=== PATIENT | female | born 1940 | race American Indian/Alaskan Native ===

== ENCOUNTER 2020-06-06 13:42 | Emergency (ER) | payer SELFPAY ==
[2020-06-06 13:51] VITALS: BP 209/144
--- NOTE | 2020-06-06 14:17 | Consultation ---
History of Present Illness History of present illness: [facility] Date of Service: 06/06/2020 13:55:46 Impression: R47.01 - Aphasia Comments/Sign-Out: Patient with a history of stroke presenting with worsening of her baseline aphasia. Consider new left hemispheric infarct vs. decompensation of her known infarct from a systemic process. Patient out of the alteplase window. Daughter states patient would not want aggressive intervention such as thrombectomy, so emergent CTA deferred. Metrics: Last Known Well: 06/06/2020 01:00:00 [facility] Notification Time: 06/06/2020 13:55:24 Arrival Time: 06/06/2020 13:42:00 Stamp Time: 06/06/2020 13:55:46 Time First Login Attempt: 06/06/2020 13:59:00 Symptoms: slurred speech NIHSS Start Assessment Time: 06/06/2020 14:05:00 Patient is not a candidate for Alteplase/Activase. Patient was not deemed candidate for Alteplase/Activase thrombolytics because of Last Well Known Above 4.[address] head showed no acute hemorrhage or acute core infarct. ED Physician notified of diagnostic impression and management plan on 06/06/2020 14:12:00 Our recommendations are outlined below. Recommendations: Activate Stroke Protocol Admission/Order Set Stroke/Telemetry Floor Neuro Checks Bedside Swallow Eval DVT Prophylaxis IV Fluids, Normal Saline Head of Bed 30 Degrees Euglycemia and Avoid Hyperthermia (PRN Acetaminophen) Antiplatelet Therapy Recommended Routine Consultation with Inhouse Neurology for Follow up Care Sign Out: Discussed with Emergency Department Provider History of Present Illness: Patient is a 80 year old Female. Patient was brought by private transportation with symptoms of slurred speech Patient with a history of HTN and prior stroke (residual mild-moderate aphasia). Patient baseline is able to communicate her needs without much inference. This morning patient was not able to express herself as well as usual. No other deficit noted by family. Examination: BP(209/144), Pulse(88), Blood Glucose(110) 1A: Level of Consciousness - Alert; keenly responsive + 0 1B: Ask Month and Age - Aphasic + 2 1C: Blink Eyes & Squeeze Hands - Performs Both Tasks + 0 2: Test Horizontal Extraocular Movements - Normal + 0 3: Test Visual Carty - No Visual Loss + 0 4: Test Facial Palsy (Use Grimace if Obtunded) - Normal symmetry + 0 5A: Test Left Arm Motor Drift - No Drift for 10 Seconds + 0 5B: Test Right Arm Motor Drift - No Drift for 10 Seconds + 0 6A: Test Left Leg Motor Drift - No Drift for 5 Seconds + 0 6B: Test Right Leg Motor Drift - No Drift for 5 Seconds + 0 7: Test Limb Ataxia (FNF/Heel-Sahni) - No Ataxia + 0 8: Test Sensation - Normal; No sensory loss + 0 9: Test Language/Aphasia - Severe Aphasia: Fragmentary Expression, Inference Needed, Cannot Identify Materials + 2 10: Test Dysarthria - Normal + 0 11: Test Extinction/Inattention - No abnormality + 0 NIHSS Score: 4 Pre-Morbid Modified Ranking Scale: 2 Points = Slight disability; unable to carry out all previous activities, but able to look after own affairs without assistance Patient/Family was informed the Neurology Consult would happen via TeleHealth consult by way of interactive audio and video telecommunications and consented to receiving care in this manner. Due to the immediate potential for life-threatening deterioration due to underlying acute neurologic illness, I spent 25 minutes providing critical care. This time includes time for face to face visit via telemedicine, review of medical records, imaging studies and discussion of findings with providers, the patient and/or family. Dr Babak Trujillo [facility] Case [id number] Medications and Allergies Allergies Allergy/AdvReac Type Severity Reaction Status Date / Time No Known Allergies Allergy Unverified 06/06/20 13:51 Physical Examination - Vital Signs Vital Signs: Vital Signs Temp Pulse Resp BP Pulse Ox 97.9 F 88 20 209/144 98 06/06/20 13:44 06/06/20 13:44 06/06/20 13:44 06/06/20 13:44 06/06/20 13:44 Results - Laboratory Findings Abnormal Lab Findings: Abnormal Labs 06/06/20 13:49 POC Glucose 110 H
[2020-06-06 14:23] LABS: Basophils # (Auto) 0.1 K/mm3 (0.0-0.1); Basophils % (Auto) 1.1 % (0.0-1.8); Eosinophils # (Auto) 0.2 K/mm3 (0.0-0.4); Eosinophils % (Auto) 2.8 % (0.0-4.3); Hematocrit 39.9 % (30.3-42.9); Hemoglobin 12.8 gm/dl (10.1-14.3); Lymphocytes # (Auto) 2.5 K/mm3 (1.2-5.4); Lymphocytes % (Auto) 29.5 % (13.4-35.0); Mean Corpuscular HGB Conc 32 % (30-34); Mean Corpuscular Volume 81 fl (79-97); Monocytes # (Auto) 0.4 K/mm3 (0.0-0.8); Monocytes % (Auto) 5.3 % (0.0-7.3); Platelet Count 236 K/mm3 (140-440); Red Cell Distribution Width 17.1 % (13.2-15.2)
[2020-06-06 14:38] LABS: Creatine Kinase MB 1.2 ng/mL (0.0-4.0); INR 0.98 (0.87-1.13)
[2020-06-06 14:39] LABS: Partial Thromboplastin Time 30.6 Sec. (24.2-36.6); Thrombin Time 16.3 Sec. (15.1-19.6)
[2020-06-06 14:40] LABS: BUN/Creatinine Ratio 13; Blood Urea Nitrogen 17 mg/dL (7-17); Calcium 9.2 mg/dL (8.4-10.2); Hemolysis Index 2
[2020-06-06 14:42] LABS: Alanine Aminotransferase < 5 units/L (7-56)
[2020-06-06] MEDS ORDERED: POTASSIUM CHLORIDE ER 20 MEQ TAB PO ONE (14:53)
--- NOTE | 2020-06-06 14:56 | Cat Scan Report ---
CT head/brain wo con INDICATION / CLINICAL INFORMATION: 80 years Female; MAIN. Worsening aphasia TECHNIQUE: Routine CT head without contrast. All CT scans at this location are performed using CT dos e reduction for ALARA by means of automated exposure control. COMPARISON: None. FINDINGS: BRAIN / INTRACRANIAL CONTENTS: Large, mixed cystic and solid lesion seen in the sella turcica, which is expanded. This lesion measures approximately 2.4 cm craniocaudally by 1.9 cm transversely by 1.8 c m AP. Solid component of the lesion lies along its anterior, inferior and left lateral margins. This finding causes mass effect on the optic chiasm. Cystic macroadenoma or perhaps a Rathke's cleft cyst (or arachnoid cyst), with displaced pituitary parenchyma, might be considered. While this is a nonagg ressive appearing lesion, the possibility of craniopharyngioma cannot entirely be excluded. Old, branch PICA infarct seen laterally in the right cerebellar hemisphere. Old, small branch JEAN inf arct suggested in the cingulate gyrus region anteriorly on the right. Otherwise, no acute hemorrhage, mass effect, midline shift, hydrocephalus, or acute, large territori al infarct. Mild cerebral and cerebellar atrophy noted. There are mild areas of decreased attenuation in the white matter of the cerebral hemispheres, as wel l as the gangliocapsular regions. These are nonspecific findings and may be related to microangiopath y (hypertension, diabetes, atherosclerosis), given the patient's age. CRANIOCERVICAL JUNCTION: No significant abnormality. ORBITS: No significant abnormality of visualized orbits. SINUSES / MASTOIDS: No significant abnormality in the visualized paranasal sinuses or mastoid air tim ls. ADDITIONAL FINDINGS: Atherosclerotic disease is seen in the anterior circulation. IMPRESSION: 1. Lesion in the sella turcica as described above, with a nonaggressive type appearance. Pre and post contrast MRI of the brain, special attention to the sella turcica, may be of benefit-this can be perf ormed on an outpatient basis. 2. Otherwise, no focal intra-axial mass, hemorrhage, hydrocephalus, or acute, large territorial infar ct. CODE STROKE: Exam Completed (FRAME MAKER/CDT): 06/06/2020 1:33 PM Exam Reviewed (FRAME MAKER/CDT): 1:40 PM Time of Communication (FRAME MAKER/CDT): 1:50 PM Licensed Practitioner Receiving Report: Dr. Zavala Signer Name: Haseeb Oro MD, III Signed: 06/06/2020 2:51 PM Workstation Name: [id number]
--- NOTE | 2020-06-06 15:08 | Emergency Department Report ---
ED Neuro Deficit HPI - General Chief Complaint: Neuro Symptoms/Deficit Stated Complaint: POSS CVA Time Seen by Provider: 06/06/20 14:22 Source: patient, family Mode of arrival: Ambulatory Limitations: No Limitations - History of Present Illness Initial Comments: Patient is an 80-year-old female with history of previous stroke with issues with speech as no deficit who presents to the emergency department with complaint of difficulty in speech. Patient's daughter is present and provides most of the history. She states that the patient was last known normal at approximately 1 AM prior to going to sleep. This morning around 1030 she noticed that the patient was having trouble telling her what she wanted. She states that she is usually able to complain of knee pain if she is having it or complaint of other symptoms. She was unable to do that on today. She denies any recent illness. The patient has not complained of any motor weakness. Stacey mccoy has a history of hypertension but does not currently take any medications for it. She is only on aspirin. - Related Data Home Medications: Home Medications Medication Instructions Recorded Confirmed Last Taken Aspirin 81 mg PO DAILY 06/06/20 06/06/20 Unknown Previous Rx's Medication Instructions Recorded Last Taken Type Amoxicillin/Potassium Clav 1 each PO Q12HR 10 Days #20 tablet 06/06/20 Unknown Rx [Augmentin 875-125 Tablet] Allergies/Adverse Reactions: Allergies Allergy/AdvReac Type Severity Reaction Status Date / Time No Known Allergies Allergy Unverified 06/06/20 13:51 ED Review of Systems ROS: Stated complaint: POSS CVA Other details as noted in HPI Constitutional: denies: chills, fever Respiratory: no symptoms reported Cardiovascular: denies: chest pain Endocrine: no symptoms reported Gastrointestinal: denies: abdominal pain, nausea, vomiting Genitourinary: denies: dysuria Musculoskeletal: denies: back pain Skin: denies: rash Neurological: denies: headache, weakness Psychiatric: denies: anxiety, depression Hematological/Lymphatic: denies: easy bleeding ED Past Medical Hx - Past Medical History Previous Medical History?: Yes Hx CVA: Yes - Surgical History Past Surgical History?: No - Social History Smoking Status: Never Smoker Substance Use Type: None - Medications Home Medications: Home Medications Medication Instructions Recorded Confirmed Last Taken Type Amoxicillin/Potassium Clav 1 each PO Q12HR 10 Days #20 tablet 06/06/20 Unknown Rx [Augmentin 875-125 Tablet] Aspirin 81 mg PO DAILY 06/06/20 06/06/20 Unknown History ED Neuro Physical Exam - General Limitations: No Limitations General appearance: alert Suspected Stroke: Yes - Head Head exam: Present: atraumatic, normocephalic - Eye Eye exam: Present: normal appearance Pupils: Present: normal accommodation - ENT ENT exam: Present: normal exam - Neck Neck exam: Present: normal inspection - Respiratory Respiratory exam: Present: normal lung sounds bilaterally. Absent: respiratory distress - Cardiovascular Cardiovascular Exam: Present: regular rate, normal rhythm, normal heart sounds - GI/Abdominal GI/Abdominal exam: Present: soft. Absent: distended, tenderness - Rectal Rectal exam: Present: deferred - Extremities Exam Extremities exam: Present: normal inspection - Back Exam Back exam: Present: normal inspection - Neurological Exam Neurological exam: Present: alert, other (Disoriented) - NIHSS Assessment Interval: Baseline 1a. Level of Consciousness: alert/keenly responsive 1b. LOC Questions: answers no questions correctly 1c. LOC Commands: performs tasks correctly 2. Best Gaze: normal 3. Visual: partial hemianopia 4. Facial Palsy: normal symmetrical movement 5b. Motor Arm Right: no drift 5a. Motor Arm Left: no drift 6a. Motor Leg Left: no drift 6b. Motor Leg Right: no drift 7. Limb Ataxia: absent 8. Sensory: normal 9. Best Language: mild/moderate aphasia 10. Dysarthria: mild/moderate dysarthria 11. Extinction/Inattention: no abnormality Total Score: 5 Stroke Severity: Moderate Stroke - Psychiatric Psychiatric exam: Present: normal affect - Skin Skin exam: Present: warm, dry, intact ED Course Vital Signs 06/06/20 13:44 Temperature 97.9 F Pulse Rate 88 Respiratory 20 Rate Blood Pressure 209/144 [Right] O2 Sat by Pulse 98 Oximetry - Reevaluation(s) Reevaluation #1: 06/06/20 15:36 Unfortunately patient's daughter cannot stay with her as these are the hospital rooms during the COVID-19 pandemic. The patient and her daughter no longer want to stay in the hospital. I discussed the risks of leaving AGAINST MEDICAL ADVICE including worsening of her neurological symptoms and . Patient and her daughter state that they understand these but they would rather leave. The patient has signed out AGAINST MEDICAL ADVICE. - Consultations Consultation #1: 06/06/20 Tele neuro recommended inpatient work-up for stroke - Lab Data Result diagrams: 06/06/20 14:03 06/06/20 14:03 Lab Results 06/06/20 06/06/20 06/06/20 Range/Units 13:49 14:03 14:03 WBC 8.5 (4.5-11.0) K/mm3 RBC 4.90 (3.65-5.03) M/mm3 Hgb 12.8 (10.1-14.3) gm/dl Hct 39.9 (30.3-42.9) % MCV 81 (79-97) fl MCH 26 L (28-32) pg MCHC 32 (30-34) % RDW 17.1 H (13.2-15.2) % Plt Count 236 (140-440) K/mm3 Lymph % (Auto) 29.5 (13.4-35.0) % Bates % (Auto) 5.3 (0.0-7.3) % Eos % (Auto) 2.8 (0.0-4.3) % Baso % (Auto) 1.1 (0.0-1.8) % Lymph # (Auto) 2.5 (1.2-5.4) K/mm3 Bates # (Auto) 0.4 (0.0-0.8) K/mm3 Eos # (Auto) 0.2 (0.0-0.4) K/mm3 Baso # (Auto) 0.1 (0.0-0.1) K/mm3 Seg Neutrophils % 61.3 (40.0-70.0) % Seg Neutrophils # 5.2 (1.8-7.7) K/mm3 PT 12.8 (12.2-14.9) Sec. INR 0.98 (0.87-1.13) APTT 30.6 (24.2-36.6) Sec. Thrombin Time 16.3 (15.1-19.6) Sec. Sodium (137-145) mmol/L Potassium (3.6-5.0) mmol/L Chloride (98-107) mmol/L Carbon Dioxide (22-30) mmol/L Anion Gap mmol/L BUN (7-17) mg/dL Creatinine (0.6-1.2) mg/dL Estimated GFR ml/min BUN/Creatinine Ratio % Glucose (65-100) mg/dL POC Glucose 110 H (70-105) mg/dL Calcium (8.4-10.2) mg/dL Magnesium (1.7-2.3) mg/dL Total Bilirubin (0.1-1.2) mg/dL AST (5-40) units/L ALT (7-56) units/L Alkaline Phosphatase (35-129) units/L Total Creatine Kinase (30-135) units/L CK-MB (CK-2) (0.0-4.0) ng/mL CK-MB (CK-2) Rel Index (0-4) Troponin T (0.00-0.029) ng/mL Total Protein (6.3-8.2) g/dL Albumin (3.9-5) g/dL Albumin/Globulin Ratio % 06/06/20 06/06/20 Range/Units 14:03 14:53 WBC (4.5-11.0) K/mm3 RBC (3.65-5.03) M/mm3 Hgb (10.1-14.3) gm/dl Hct (30.3-42.9) % MCV (79-97) fl MCH (28-32) pg MCHC (30-34) % RDW (13.2-15.2) % Plt Count (140-440) K/mm3 Lymph % (Auto) (13.4-35.0) % Bates % (Auto) (0.0-7.3) % Eos % (Auto) (0.0-4.3) % Baso % (Auto) (0.0-1.8) % Lymph # (Auto) (1.2-5.4) K/mm3 Bates # (Auto) (0.0-0.8) K/mm3 Eos # (Auto) (0.0-0.4) K/mm3 Baso # (Auto) (0.0-0.1) K/mm3 Seg Neutrophils % (40.0-70.0) % Seg Neutrophils # (1.8-7.7) K/mm3 PT (12.2-14.9) Sec. INR (0.87-1.13) APTT (24.2-36.6) Sec. Thrombin Time (15.1-19.6) Sec. Sodium 141 (137-145) mmol/L Potassium 3.0 L (3.6-5.0) mmol/L Chloride 102.5 (98-107) mmol/L Carbon Dioxide 30 (22-30) mmol/L Anion Gap 12 mmol/L BUN 17 (7-17) mg/dL Creatinine 1.3 H (0.6-1.2) mg/dL Estimated GFR 48 ml/min BUN/Creatinine Ratio 13 % Glucose 123 H (65-100) mg/dL POC Glucose (70-105) mg/dL Calcium 9.2 (8.4-10.2) mg/dL Magnesium 2.10 (1.7-2.3) mg/dL Total Bilirubin 0.40 (0.1-1.2) mg/dL AST 15 (5-40) units/L ALT < 5 L (7-56) units/L Alkaline Phosphatase 55 (35-129) units/L Total Creatine Kinase 72 (30-135) units/L CK-MB (CK-2) 1.2 (0.0-4.0) ng/mL CK-MB (CK-2) Rel Index 1.6 (0-4) Troponin T < 0.010 (0.00-0.029) ng/mL Total Protein 7.6 (6.3-8.2) g/dL Albumin 4.0 (3.9-5) g/dL Albumin/Globulin Ratio 1.1 % - Medical Decision Making Patient is an 80-year-old female with history of previous stroke as well as hypertension who presents to the emergency department with complaint of difficulty in speech. She is accompanied by her daughter who provides most of the history. Of concern is acute CVA. Code stroke was called and patient will go emergently for CT head without contrast as well as a telemetry neurology consult. Critical care attestation.: If time is entered above; I have spent that time in minutes in the direct care of this critically ill patient, excluding procedure time. ED Disposition Clinical Impression: Dysarthria, Word finding problem Disposition: [id number] LEFT AGAINST MED ADVICE Is pt being admited?: No Does the pt Need Aspirin: Yes Condition: Stable Prescriptions: Amoxicillin/Potassium Clav [Augmentin 875-125 Tablet] 1 each PO Q12HR 10 Days #20 tablet Referrals: PRIMARY CARE, [Primary Care Provider] - 3-5 Days Forms: AMA Form
[2020-06-06] MEDS ORDERED: ASPIRIN 81 MG TAB CHEW PO ONE (15:10)
== END 2020-06-06 16:06 | disposition left against medical advice (07) ==
LOC: ED 13:42
DX: R47.1 Dysarthria and anarthria (principal); R41.841 Cognitive communication deficit; Z79.2 Long term (current) use of antibiotics; Z79.899 Other long term (current) drug therapy
CPT/HCPCS: 36415; 70450; 80053; 82550; 82553; 82962; 83735; 84484; 85025; 85610; 85670; 85730; 93005

== ENCOUNTER 2020-06-13 09:56 | Inpatient (IN) | payer MEDICARE ==
--- NOTE | 2020-06-13 10:39 | Emergency Department Report ---
ED Neuro Deficit HPI - General Chief Complaint: Altered Mental Status Stated Complaint: WEAKNESS Time Seen by Provider: 06/13/20 10:36 Source: patient, EMS Mode of arrival: Stretcher Limitations: Other (aphasia) - History of Present Illness Initial Comments: CC: not walking, not speaking HPI: History obtained from the daughter. THis is an 80 yo female with hx of HTN, CVA who presents wtih difficulty speaking and inability to walk. On Tuesday she could not make it to bathroom. On yesterday, the difficulty with walking became worse. This morning, she would not move at all. She just fell to the ground when attempted to get up out of bed. Patient had a stroke in 2017. Her only deficit was mild aphasia. According to the daughter, she would mix up words. No hx of paralysis or gait imbalance. Patient only takes ASA. She does not take blood pressure medication. No hx of DM or heart disease. She lives with daughter. She is a retired warehouse attendant. -: days(s) (3 days ago) Location: speech Presenting Symptoms: Present: Weak/Paralyzed One Side History of same: No Place: home Severity: severe Quality: constant Improves With: none Worsens With: none Context: other (unknown) Treatments Prior to Arrival: other (ENS transport) - Related Data Home Medications: Home Medications Medication Instructions Recorded Confirmed Last Taken Aspirin 81 mg PO DAILY 06/06/20 06/06/20 Unknown Previous Rx's Medication Instructions Recorded Last Taken Type Amoxicillin/Potassium Clav 1 each PO Q12HR 10 Days #20 tablet 06/06/20 Unknown Rx [Augmentin 875-125 Tablet] Allergies/Adverse Reactions: Allergies Allergy/AdvReac Type Severity Reaction Status Date / Time No Known Allergies Allergy Unverified 06/06/20 13:51 ED Review of Systems ROS: Stated complaint: WEAKNESS Other details as noted in HPI Comment: Unobtainable due to pts medical conditions ED Past Medical Hx - Past Medical History Previous Medical History?: Yes (Unobtainable due to patient's aphasia) Hx Hypertension: Yes Hx CVA: Yes - Surgical History Past Surgical History?: No - Family History Family history: hypertension - Social History Smoking Status: Never Smoker Substance Use Type: None - Medications Home Medications: Home Medications Medication Instructions Recorded Confirmed Last Taken Type Amoxicillin/Potassium Clav 1 each PO Q12HR 10 Days #20 tablet 06/06/20 Unknown Rx [Augmentin 875-125 Tablet] Aspirin 81 mg PO DAILY 06/06/20 06/06/20 Unknown History ED Neuro Physical Exam - General Limitations: Other General appearance: alert, other (Patient just moans when attempting to answer question will make eye contact facial droop evident) Suspected Stroke: Yes - Head Head exam: Present: atraumatic, normocephalic - Eye Eye exam: Present: normal appearance - ENT ENT exam: Present: mucous membranes moist - Neck Neck exam: Present: normal inspection, full ROM - Respiratory Respiratory exam: Present: normal lung sounds bilaterally. Absent: respiratory distress, wheezes, rales, rhonchi - Cardiovascular Cardiovascular Exam: Present: regular rate, normal rhythm, normal heart sounds. Absent: systolic murmur, diastolic murmur - GI/Abdominal GI/Abdominal exam: Present: soft. Absent: distended, tenderness, guarding, rebound - Extremities Exam Extremities exam: Present: normal inspection - Neurological Exam Neurological exam: Present: alert - NIHSS Assessment Interval: Baseline 1a. Level of Consciousness: arousable/minor stimuli 1b. LOC Questions: aphasic 1c. LOC Commands: performs tasks correctly 2. Best Gaze: normal 3. Visual: no visual loss 4. Facial Palsy: partial paralysis 5b. Motor Arm Right: no gravity effort 5a. Motor Arm Left: no drift 6a. Motor Leg Left: no drift 6b. Motor Leg Right: no gravity effort 7. Limb Ataxia: absent 8. Sensory: normal 9. Best Language: severe aphasia 10. Dysarthria: severe dysarthria 11. Extinction/Inattention: profound inattention Total Score: 17 Stroke Severity: Moderate to Severe Stroke ED Course Vital Signs 06/13/20 06/13/20 06/13/20 10:23 10:49 11:12 Pulse Rate 72 61 Respiratory 16 14 Rate Blood Pressure 217/105 222/135 Blood Pressure 153/100 [Left] O2 Sat by Pulse 99 98 Oximetry 06/13/20 06/13/20 11:45 12:40 Pulse Rate 63 63 Respiratory 14 14 Rate Blood Pressure Blood Pressure 162/86 152/92 [Left] O2 Sat by Pulse 99 98 Oximetry - Lab Data Result diagrams: 06/13/20 11:38 06/13/20 11:38 Lab Results 06/13/20 06/13/20 06/13/20 Range/Units 11:38 11:38 11:38 WBC 8.6 (4.5-11.0) K/mm3 RBC 4.71 (3.65-5.03) M/mm3 Hgb 12.5 (10.1-14.3) gm/dl Hct 38.5 (30.3-42.9) % MCV 82 (79-97) fl MCH 27 L (28-32) pg MCHC 32 (30-34) % RDW 17.3 H (13.2-15.2) % Plt Count 206 (140-440) K/mm3 Lymph % (Auto) 19.2 (13.4-35.0) % Mariposa % (Auto) 5.3 (0.0-7.3) % Eos % (Auto) 1.3 (0.0-4.3) % Baso % (Auto) 0.8 (0.0-1.8) % Lymph # (Auto) 1.6 (1.2-5.4) K/mm3 Mar[place]osa # (Auto) 0.5 (0.0-0.8) K/mm3 Eos # (Auto) 0.1 (0.0-0.4) K/mm3 Baso # (Auto) 0.1 (0.0-0.1) K/mm3 Seg Neutrophils % 73.4 H (40.0-70.0) % Seg Neutrophils # 6.3 (1.8-7.7) K/mm3 PT 13.1 (12.2-14.9) Sec. INR 1.00 (0.87-1.13) APTT 26.1 (24.2-36.6) Sec. Sodium (137-145) mmol/L Potassium (3.6-5.0) mmol/L Chloride (98-107) mmol/L Carbon Dioxide (22-30) mmol/L Anion Gap mmol/L BUN (7-17) mg/dL Creatinine (0.6-1.2) mg/dL Estimated GFR ml/min BUN/Creatinine Ratio % Glucose (65-100) mg/dL Calcium (8.4-10.2) mg/dL Total Bilirubin (0.1-1.2) mg/dL AST (5-40) units/L ALT (7-56) units/L Alkaline Phosphatase (35-129) units/L Troponin T < 0.010 (0.00-0.029) ng/mL Total Protein (6.3-8.2) g/dL Albumin (3.9-5) g/dL Albumin/Globulin Ratio % Urine Color (Yellow) Urine Turbidity (Clear) Urine pH (5.0-7.0) Ur Specific Mangum (1.003-1.030) Urine Protein (Negative) mg/dL Urine Glucose (UA) (Negative) mg/dL Urine Ketones (Negative) mg/dL Urine Blood (Negative) Urine Nitrite (Negative) Urine Bilirubin (Negative) Urine Urobilinogen (<2.0) mg/dL Ur Leukocyte Esterase (Negative) Urine WBC (Auto) (0.0-6.0) /HPF Urine RBC (Auto) (0.0-6.0) /HPF U Epithel Cells (Auto) (0-13.0) /HPF Urine Mucus /HPF 06/13/20 06/13/20 Range/Units 11:38 12:02 WBC (4.5-11.0) K/mm3 RBC (3.65-5.03) M/mm3 Hgb (10.1-14.3) gm/dl Hct (30.3-42.9) % MCV (79-97) fl MCH (28-32) pg MCHC (30-34) % RDW (13.2-15.2) % Plt Count (140-440) K/mm3 Lymph % (Auto) (13.4-35.0) % Mariposa % (Auto) (0.0-7.3) % Eos % (Auto) (0.0-4.3) % Baso % (Auto) (0.0-1.8) % Lymph # (Auto) (1.2-5.4) K/mm3 [place]osa # (Auto) (0.0-0.8) K/mm3 Eos # (Auto) (0.0-0.4) K/mm3 Baso # (Auto) (0.0-0.1) K/mm3 Seg Neutrophils % (40.0-70.0) % Seg Neutrophils # (1.8-7.7) K/mm3 PT (12.2-14.9) Sec. INR (0.87-1.13) APTT (24.2-36.6) Sec. Sodium 144 (137-145) mmol/L Potassium 3.1 L (3.6-5.0) mmol/L Chloride 106.9 (98-107) mmol/L Carbon Dioxide 28 (22-30) mmol/L Anion Gap 12 mmol/L BUN 20 H (7-17) mg/dL Creatinine 1.3 H (0.6-1.2) mg/dL Estimated GFR 48 ml/min BUN/Creatinine Ratio 15 % Glucose 93 (65-100) mg/dL Calcium 9.0 (8.4-10.2) mg/dL Total Bilirubin 0.40 (0.1-1.2) mg/dL AST 13 (5-40) units/L ALT < 5 L (7-56) units/L Alkaline Phosphatase 53 (35-129) units/L Troponin T (0.00-0.029) ng/mL Total Protein 6.9 (6.3-8.2) g/dL Albumin 3.7 L (3.9-5) g/dL Albumin/Globulin Ratio 1.2 % Urine Color Yellow (Yellow) Urine Turbidity Clear (Clear) Urine pH 6.0 (5.0-7.0) Ur Specific Mangum 1.018 (1.003-1.030) Urine Protein 30 mg/dl (Negative) mg/dL Urine Glucose (UA) Neg (Negative) mg/dL Urine Ketones Neg (Negative) mg/dL Urine Blood Neg (Negative) Urine Nitrite Neg (Negative) Urine Bilirubin Neg (Negative) Urine Urobilinogen < 2.0 (<2.0) mg/dL Ur Leukocyte Esterase Neg (Negative) Urine WBC (Auto) 2.0 (0.0-6.0) /HPF Urine RBC (Auto) 1.0 (0.0-6.0) /HPF U Epithel Cells (Auto) 4.0 (0-13.0) /HPF Urine Mucus Few /HPF - EKG Data -: EKG Interpreted by Id EKG shows normal: sinus rhythm, axis, intervals Rate: normal 06/13/20 11:22 EKG obtained 1118 EKG interpreted by la Normal sinus rhythm rate 60 bpm normal axis normal intervals positive LVH inferior Q waves anterior Q waves nonspecific T wave abnormality no ST elevation 06/13/20 11:22 - Radiology Data Radiology results: report reviewed, image reviewed CT BRAIN: 06/13/2020 INDICATION / CLINICAL INFORMATION: Stroke symptoms. No additional information provided COMPARISON: 06/06/2020 FINDINGS: BRAIN/INTRACRANIAL STRUCTURES: Unenhanced CT images of the brain were obtained and compared to the prior exam from 7 days earlier. There has been no change. Again seen is pronounced diffuse cerebral atrophy, chronic white matter hypoattenuation, and evidence of old left periventricular lacunar change. Old right cerebellar lacunar changes also noted. There is no CT evidence of acute ischemic injury, hemorrhage, or parenchymal mass. Again seen is a 2.4 cm mixed cystic and solid lesion in the sella turcica, with a differential diagnosis which includes cystic macroadenoma, Rathke's cleft cyst, craniopharyngioma. Further evaluation with MRI could be considered for additional evaluation, depending on details of the clinical circumstances. EXTRACRANIAL STRUCTURES: Unremarkable. IMPRESSION: 1. Stable chronic and age-related changes. No evidence of acute abnormality. 2. Stable lesion of the sella turcica as described above. - Medical Decision Making 1. Acute CVA: Teleneurologist recommended full aspirin, MRI/MRA. No evidence of intracranial hemorrhage. Patient is admitted to the hospital service in fair condition. Patient is outside window for thrombolytics or endovascular intervention according to teleneurologist. 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 Outpatient work-up is most appropriate Patient is admitted to the hospital service. I updated daughter with head CT results and treatment plan. Upon lab review CBC chemistry urinalysis remarkable for hypokalemia absence of UTI Critical Care Time: Yes Critical care attestation.: If time is entered above; I have spent that time in minutes in the direct care of this critically ill patient, excluding procedure time. 40 minutes of critical care time excluding procedures were used in the care of the patient. I came immediately to the bedside upon patient's arrival. I obtained history from daughter. I asked charge nurse to activate code stroke protocol I discussed treatment plan with the nursing team members. I reviewed electronic record. I kept the family members informed. Patient required multiple interventions and reassessments. ED Disposition Clinical Impression: Acute CVA (cerebrovascular accident), Pituitary mass Disposition: OP ADMIT IP TO THIS HOSP Is pt being admited?: Yes Does the pt Need Aspirin: No Condition: Stable
--- NOTE | 2020-06-13 11:07 | XRay Report ---
CHEST 1 VIEW INDICATION: speech difficulty general illness. COMPARISON: None FINDINGS: Support devices: None. Heart: Within normal limits. Lungs/Pleura: No acute air space or interstitial disease. Additional findings: None. IMPRESSION: No acute findings. Signer Name: Dionte Sahni Jr, MD Signed: 06/13/2020 11:03 AM Workstation Name: [id number]
--- NOTE | 2020-06-13 11:13 | Consultation ---
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 Outside any therapeutic window for thrombolytics or endovascular intervention. Sellar mass not responsible for presentation but should be evaluated with contrasted MRI Metrics: Last Known Well: Unknown [facility] Notification Time: 06/13/2020 10:48:28 Arrival Time: 06/13/2020 09:56:00 Stamp Time: 06/13/2020 10:48:58 Time First Login Attempt: 06/13/2020 10:52:11 Symptoms: right sided weakness, NIHSS Start Assessment Time: 06/13/2020 11:03:57 Patient is not a candidate for Alteplase/Activase. Patient was not deemed candidate for Alteplase/Activase thrombolytics because of Last Well Known Above 4.[address] head showed no acute hemorrhage; pituitary mass Clinical Presentation is Suggestive of Large Vessel Occlusive Disease, But Outside Treatment Window ED Physician notified of diagnostic impression and management plan on 06/13/2020 11:09:48 Our recommendations are outlined below. Recommendations: Activate Stroke Protocol Admission/Order Set Stroke/Telemetry Floor Neuro Checks Bedside Swallow Eval DVT Prophylaxis IV Fluids, Normal Saline Head of Bed 30 Degrees Euglycemia and Avoid Hyperthermia (PRN Acetaminophen) Antiplatelet Therapy Recommended Full dose aspirin x 1 now No emergent need for vessel imaging as not a candidate given history MRI brain, MRA head and neck for stroke workup. For pitutiary mass eval would need a dedicated MRI brain pituitary protocol w contrast Routine Consultation with Inhouse Neurology for Follow up Care Sign Out: Discussed with Emergency Department Provider History of Present Illness: Patient is a 80 year old Female. Patient was brought by EMS for symptoms of right sided weakness, 80 yo F who was brought in by daughter with slight speech deficits earlier this month. She had difficulties expressing herself. The patient was supposed to be admitted then but the daughter did not want her to be in the hospital due to COVID restrictions so was taken home AMA. Today she is hypertensive with report of right sided weakness in addition to the aphasia. Per daughter the patient has had trouble with walking for 2 days as well Last seen normal was beyond 4.5 hours of presentation. Antiplatelet use: asa 80 Examination: BP(220/105), Pulse(72), Blood Glucose(.) 1A: Level of Consciousness - Alert; keenly responsive + 0 1B: Ask Month and Age - Aphasic + 2 1C: Blink Eyes & Squeeze Hands - Performs 1 Task + 1 2: Test Horizontal Extraocular Movements - Forced Gaze Palsy: Cannot Be Overcome + 2 3: Test Visual Carty - Complete Hemianopia + 2 4: Test Facial Palsy (Use Grimace if Obtunded) - Partial paralysis (lower face) + 2 5A: Test Left Arm Motor Drift - No Drift for 10 Seconds + 0 5B: Test Right Arm Motor Drift - No Movement + 4 6A: Test Left Leg Motor Drift - No Drift for 5 Seconds + 0 6B: Test Right Leg Motor Drift - No Movement + 4 7: Test Limb Ataxia (FNF/Heel-Sahni) - No Ataxia + 0 8: Test Sensation - Normal; No sensory loss + 0 9: Test Language/Aphasia - Severe Aphasia: Fragmentary Expression, Inference Needed, Cannot Identify Materials + 2 10: Test Dysarthria - Severe Dysarthria: Unintelligble Slurring or Out of Proportion to Aphasia + 2 11: Test Extinction/Inattention - No abnormality + 0 NIHSS Score: 21 Patient/Family was informed the Neurology Consult would happen via TeleHealth consult by way of interactive audio and video telecommunications and consented to receiving care in this manner. Due to the immediate potential for life-threatening deterioration due to underlying acute neurologic illness, I spent 35 minutes providing critical care. This time includes time for face to face visit via telemedicine, review of medical records, imaging studies and discussion of findings with providers, the patient and/or family. Dr Carlton [place] [facility] Case [id number] Medications and Allergies Allergies Allergy/AdvReac Type Severity Reaction Status Date / Time No Known Allergies Allergy Unverified 06/06/20 13:51 Home Medications Medication Instructions Recorded Confirmed Last Taken Type Amoxicillin/Potassium Clav 1 each PO Q12HR 10 Days #20 tablet 06/06/20 Unknown Rx [Augmentin 875-125 Tablet] Aspirin 81 mg PO DAILY 06/06/20 06/06/20 Unknown History Physical Examination - Vital Signs Vital Signs: Vital Signs Pulse Resp BP Pulse Ox 72 16 217/105 99 06/13/20 10:23 06/13/20 10:23 06/13/20 10:23 06/13/20 10:23
--- NOTE | 2020-06-13 11:24 | Cat Scan Report ---
CT BRAIN: 06/13/2020 INDICATION / CLINICAL INFORMATION: Stroke symptoms. No additional information provided COMPARISON: 06/06/2020 FINDINGS: BRAIN/INTRACRANIAL STRUCTURES: Unenhanced CT images of the brain were obtained and compared to the pr ior exam from 7 days earlier. There has been no change. Again seen is pronounced diffuse cerebral atrophy, chronic white matter hypoattenuation, and evidence of old left periventricular lacunar change. Old right cerebellar lacunar changes also noted. There is no CT evidence of acute ischemic injury, hemorrhage, or parenchymal mass. Again seen is a 2.4 cm mixed cystic and solid lesion in the sella turcica, with a differential diagno sis which includes cystic macroadenoma, Rathke's cleft cyst, craniopharyngioma. Further evaluation wi th MRI could be considered for additional evaluation, depending on details of the clinical circumstan chandni. EXTRACRANIAL STRUCTURES: Unremarkable. IMPRESSION: 1. Stable chronic and age-related changes. No evidence of acute abnormality. 2. Stable lesion of the sella turcica as described above. Notification: in the emergency department at [address] scans at this location are performed using dose reduction to ALARA by means of automated expos ure control. Signer Name: Alexy Mondragon MD Signed: 06/13/2020 11:20 AM Workstation Name: [id number]
[2020-06-13 11:54] LABS: Basophils # (Auto) 0.1 K/mm3 (0.0-0.1); Basophils % (Auto) 0.8 % (0.0-1.8); Eosinophils # (Auto) 0.1 K/mm3 (0.0-0.4); Eosinophils % (Auto) 1.3 % (0.0-4.3); Hematocrit 38.5 % (30.3-42.9); Hemoglobin 12.5 gm/dl (10.1-14.3); Lymphocytes # (Auto) 1.6 K/mm3 (1.2-5.4); Lymphocytes % (Auto) 19.2 % (13.4-35.0); Mean Corpuscular HGB Conc 32 % (30-34); Mean Corpuscular Volume 82 fl (79-97); Monocytes # (Auto) 0.5 K/mm3 (0.0-0.8); Monocytes % (Auto) 5.3 % (0.0-7.3); Platelet Count 206 K/mm3 (140-440); Red Blood Count 4.71 M/mm3 (3.65-5.03); Red Cell Distribution Width 17.3 % (13.2-15.2)
[2020-06-13 12:05] LABS: Partial Thromboplastin Time 26.1 Sec. (24.2-36.6)
[2020-06-13 12:12] LABS: Albumin 3.7 g/dL (3.9-5); BUN/Creatinine Ratio 15; Blood Urea Nitrogen 20 mg/dL (7-17); Hemolysis Index 21
[2020-06-13 12:25] LABS: Bilirubin,Urine NEG (Negative); Blood,Urine NEG (Negative); Color,Urine Yellow (Yellow); Mucus,Urine FEW /HPF; Urobilinogen,Urine < 2.0 mg/dL (<2.0)
[2020-06-13 12:30] LABS: Alanine Aminotransferase < 5 units/L (7-56)
[2020-06-13] MEDS ORDERED: MAGNESIUM HYDROXIDE (MOM) ORAL LIQD UDC PO PRN (12:38)
[2020-06-13] MEDS ORDERED: METOCLOPRAMIDE 10 MG TAB PO PRN (12:38)
[2020-06-13] MEDS ORDERED: ONDANSETRON 4 MG/2 ML INJ IV PRN (12:38)
[2020-06-13] MEDS ORDERED: ACETAMINOPHEN 325 MG TAB PO PRN (12:38)
[2020-06-13] MEDS ORDERED: PROMETHAZINE 25 MG RECT SUPP PR PRN (12:38)
--- NOTE | 2020-06-13 12:38 | History and Physical Report ---
History of Present Illness Chief complaint: She is weak on her right side History of present illness: 80 YO Female with HTN, 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 Patient is confused, dysarthric at the time of my evaluation and is unable to provide history. Patient daughter is at bedside at time of my exam and interview and provides history. As per daughter, the patient has experienced increased weakness and unsteady gait over the past 3 days with persistently worsening symptoms over the past 1 day. Patient daughter reports that patient has experienced increased difficulty with ambulation due to right-sided weakness as well as increased difficulty with speaking. EMS was notified and upon arrival the patient was found to be in distress with a neurologic deficit. A code stroke was called and the patient was transported to [facility] for further care and evaluation of the aforementioned symptoms. The patient was seen and evaluated in the emergency department. All lab and imaging studies reviewed. Patient found to have clinical symptoms consistent with CVA. The patient was placed in observation status and admitted to telemetry and initiated on CVA protocol due to increased risk of worsening symptoms. Patient daughter denies fever, chills, chest pain, palpitation, productive cough, skin rash, recent ill contacts, or known exposure to COVID-19. No prior admission for review. All medication listed at time of admission has been reconciled. Advanced care planning conducted in ED. Past History Past Medical History: hypertension, stroke Past Surgical History: No surgical history, Other (Reviewed) Social history: . denies: smoking, alcohol abuse Family history: diabetes, hypertension Medications and Allergies Allergies Allergy/AdvReac Type Severity Reaction Status Date / Time No Known Allergies Allergy Unverified 06/06/20 13:51 Home Medications Medication Instructions Recorded Confirmed Last Taken Type Amoxicillin/Potassium Clav 1 each PO Q12HR 10 Days #20 tablet 06/06/20 Unknown Rx [Augmentin 875-125 Tablet] Aspirin 81 mg PO DAILY 06/06/20 06/06/20 Unknown History Review of Systems ROS unobtainable: due to mental status Exam - Constitutional Vitals: Temp Pulse Resp BP Pulse Ox 61 14 153/100 98 06/13/20 11:12 06/13/20 11:12 06/13/20 11:12 06/13/20 11:12 General appearance: Present: mild distress - EENT Eyes: Present: PERRL ENT: hearing intact, clear oral mucosa - Neck Neck: Present: supple, normal ROM - Respiratory Respiratory effort: normal Respiratory: bilateral: CTA - Cardiovascular Heart Sounds: Present: S1 & S2. Absent: rub, click - Extremities Extremities: pulses symmetrical, No edema Peripheral Pulses: within normal limits - Abdominal General gastrointestinal: Present: soft, non-tender, non-distended, normal bowel sounds Female genitourinary: Present: normal - Integumentary Integumentary: Present: clear, warm, dry - Musculoskeletal Musculoskeletal: right sided weakness - Psychiatric Psychiatric: no appropriate mood/affect, no intact judgment & insight, no memory intact - Neurologic Neurologic: CNII-XII intact, focal deficits, moves all extremities, no gait normal HEART Score - HEART Score Troponin: Troponin T < 0.010 ng/mL (0.00-0.029) 06/13/20 11:38 Results - Labs CBC & Chem 7: 06/13/20 11:38 06/13/20 11:38 Labs: Abnormal lab results 06/13/20 06/13/20 Range/Units 11:38 11:38 MCH 27 L (28-32) pg RDW 17.3 H (13.2-15.2) % Seg Neutrophils % 73.4 H (40.0-70.0) % Potassium 3.1 L (3.6-5.0) mmol/L BUN 20 H (7-17) mg/dL Creatinine 1.3 H (0.6-1.2) mg/dL ALT < 5 L (7-56) units/L Albumin 3.7 L (3.9-5) g/dL Assessment and Plan - Patient Problems (1) Acute CVA (cerebrovascular accident) Current Visit: Yes Status: Acute Plan to address problem: CVA protocol: CT head, echocardiogram, carotid Doppler, physical therapy consulted, speech therapy consulted, Occupational Therapy consulted, antiplatelet therapy, neuro check, seizure precaution, aspiration precautions, fall precautions, teleneurology consulted in ED. Lipid panel, statin therapy. (2) Right hemiparesis Current Visit: Yes Status: Acute Plan to address problem: Physical therapy consulted, supportive care, (3) Hypertension Current Visit: Yes Status: Acute Qualifiers: Hypertension type: essential hypertension Qualified Code(s): I10 - Essential (primary) hypertension Plan to address problem: Monitor blood pressure every shift, permissive hypertension overnight. (4) Pituitary mass Current Visit: Yes Status: Acute Plan to address problem: Neurology consulted, further care and evaluation as per neurology team. (5) Dysarthria Current Visit: No Status: Acute Plan to address problem: Speech therapy consulted, supportive care. (6) DVT prophylaxis Current Visit: Yes Status: Acute Plan to address problem: SCD to bilateral lower extremities while in bed, prophylactic anticoagulation (7) Advance care planning Current Visit: Yes Status: Acute Plan to address problem: Disease education conducted, patient is full code, prognosis discussed, care plan discussed, patient daughter acknowledges understanding and agreement with care plan, +30 minutes.
[2020-06-14 06:56] LABS: Chol/HDL Ratio 5.62 %
[2020-06-14] MEDS: ASPIRIN 325 MG TAB PO SCH (09:26)
--- NOTE | 2020-06-14 10:51 | Progress Note ---
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 Patient is confused, dysarthric at the time of my evaluation and is unable to provide history. Patient daughter is at bedside at time of my exam and interview and provides history. As per daughter, the patient has experienced increased weakness and unsteady gait over the past 3 days with persistently worsening symptoms over the past 1 day. Patient daughter reports that patient has experienced increased difficulty with ambulation due to right-sided weakness as well as increased difficulty with speaking. EMS was notified and upon arrival the patient was found to be in distress with a neurologic deficit. A code stroke was called and the patient was transported to [facility] for further care and evaluation of the aforementioned symptoms. The patient was seen and evaluated in the emergency department. All lab and imaging studies reviewed. Patient found to have clinical symptoms consistent with CVA. The patient was placed in observation status and admitted to telemetry and initiated on CVA protocol due to increased risk of worsening symptoms. Patient daughter denies fever, chills, chest pain, palpitation, productive cough, skin rash, recent ill contacts, or known exposure to COVID-19. No prior admission for review. All medication listed at time of admission has been reconciled. Advanced care planning conducted in ED. EXPRESSIVE ASPHSIA SINCE LAST STROKE IN 2017 BUT WORSE Right HEMIPLEGIA NEW Control BP (1) Acute CVA (cerebrovascular accident) Current Visit: Yes Status: Acute Plan to address problem: CVA protocol: CT head, echocardiogram, carotid Doppler, physical therapy consulted, speech therapy consulted, Occupational Therapy consulted, ant iplatelet therapy, neuro check, seizure precaution, aspiration precautions, fall precautions, teleneurology consulted in ED. Lipid panel, statin therapy. (2) Right hemiparesis Current Visit: Yes Status: Acute Plan to address problem: Physical therapy consulted, supportive care, (3) Hypertension Current Visit: Yes Status: Acute Qualifiers: Hypertension type: essential hypertension Qualified Code(s): I10 - Essential (primary) hypertension Plan to address problem: Monitor blood pressure every shift, permissive hypertension overnight. (4) Pituitary mass Current Visit: Yes Status: Acute Plan to address problem: Neurology consulted, further care and evaluation as per neurology team. (5) Dysarthria Current Visit: No Status: Acute Plan to address problem: Speech therapy consulted, supportive care. (6) DVT prophylaxis Current Visit: Yes Status: Acute Plan to address problem: SCD to bilateral lower extremities while in bed, prophylactic anticoagulation (7) Advance care planning Current Visit: Yes Status: Acute Plan to address problem: Disease education conducted, patient is full code, prognosis discussed, care plan discussed, patient daughter acknowledges understanding and agreement with care plan, +30 minutes. History Interval history: Patient seen and examined still with expressive aphasia although this is worse than prior based on discussion with family member. Hospitalist Physical - Physical exam Narrative exam: General appearance: Present: mild distress - EENT Eyes: Present: PERRL ENT: hearing intact, clear oral mucosa - Neck Neck: Present: supple, normal ROM - Respiratory Respiratory effort: normal Respiratory: bilateral: CTA - Cardiovascular Heart Sounds: Present: S1 & S2. Absent: rub, click - Extremities Extremities: pulses symmetrical, No edema Peripheral Pulses: within normal limits - Abdominal General gastrointestinal: Present: soft, non-tender, non-distended, normal bowel sounds Female genitourinary: Present: normal - Integumentary Integumentary: Present: clear, warm, dry - Musculoskeletal Musculoskeletal: right sided weakness - Psychiatric Psychiatric: no appropriate mood/affect, no intact judgment & insight, no memory intact - Neurologic Neurologic: CNII-XII intact, focal deficits EXISIT, motor right 0/5.EXPRESSIVE APHASIA - Constitutional Vitals: Temp Pulse Resp BP Pulse Ox 97.9 F 66 18 175/86 98 06/14/20 08:13 06/14/20 08:13 06/14/20 08:13 06/14/20 08:13 06/14/20 08:13 General appearance: Present: mild distress HEART Score - HEART Score Troponin: Troponin T < 0.010 ng/mL (0.00-0.029) 06/13/20 11:38 Results - Labs CBC & Chem 7: 06/13/20 11:38 06/13/20 11:38 Labs: Laboratory Last Values WBC 8.6 K/mm3 (4.5-11.0) 06/13/20 11:38 RBC 4.71 M/mm3 (3.65-5.03) 06/13/20 11:38 Hgb 12.5 gm/dl (10.1-14.3) 06/13/20 11:38 Hct 38.5 % (30.3-42.9) 06/13/20 11:38 MCV 82 fl (79-97) 06/13/20 11:38 MCH 27 pg (28-32) L 06/13/20 11:38 MCHC 32 % (30-34) 06/13/20 11:38 RDW 17.3 % (13.2-15.2) H 06/13/20 11:38 Plt Count 206 K/mm3 (140-440) 06/13/20 11:38 Lymph % (Auto) 19.2 % (13.4-35.0) 06/13/20 11:38 [place] % (Auto) 5.3 % (0.0-7.3) 06/13/20 11:38 Eos % (Auto) 1.3 % (0.0-4.3) 06/13/20 11:38 Baso % (Auto) 0.8 % (0.0-1.8) 06/13/20 11:38 Lymph # (Auto) 1.6 K/mm3 (1.2-5.4) 06/13/20 11:38 [place] # (Auto) 0.5 K/mm3 (0.0-0.8) 06/13/20 11:38 Eos # (Auto) 0.1 K/mm3 (0.0-0.4) 06/13/20 11:38 Baso # (Auto) 0.1 K/mm3 (0.0-0.1) 06/13/20 11:38 Seg Neutrophils % 73.4 % (40.0-70.0) H 06/13/20 11:38 Seg Neutrophils # 6.3 K/mm3 (1.8-7.7) 06/13/20 11:38 PT 13.1 Sec. (12.2-14.9) 06/13/20 11:38 INR 1.00 (0.87-1.13) 06/13/20 11:38 APTT 26.1 Sec. (24.2-36.6) 06/13/20 11:38 Sodium 144 mmol/L (137-145) 06/13/20 11:38 Potassium 3.1 mmol/L (3.6-5.0) L 06/13/20 11:38 Chloride 106.9 mmol/L (98-107) 06/13/20 11:38 Carbon Dioxide 28 mmol/L (22-30) 06/13/20 11:38 Anion Gap 12 mmol/L 06/13/20 11:38 BUN 20 mg/dL (7-17) H 06/13/20 11:38 Creatinine 1.3 mg/dL (0.6-1.2) H 06/13/20 11:38 Estimated GFR 48 ml/min 06/13/20 11:38 BUN/Creatinine Ratio 15 % 06/13/20 11:38 Glucose 93 mg/dL (65-100) 06/13/20 11:38 POC Glucose 157 mg/dL (70-105) H 06/14/20 07:50 Calcium 9.0 mg/dL (8.4-10.2) 06/13/20 11:38 Total Bilirubin 0.40 mg/dL (0.1-1.2) 06/13/20 11:38 AST 13 units/L (5-40) 06/13/20 11:38 ALT < 5 units/L (7-56) L 06/13/20 11:38 Alkaline Phosphatase 53 units/L (35-129) 06/13/20 11:38 Troponin T < 0.010 ng/mL (0.00-0.029) 06/13/20 11:38 Total Protein 6.9 g/dL (6.3-8.2) 06/13/20 11:38 Albumin 3.7 g/dL (3.9-5) L 06/13/20 11:38 Albumin/Globulin Ratio 1.2 % 06/13/20 11:38 Triglycerides 186 mg/dL (2-149) H 06/14/20 05:44 Cholesterol 208 mg/dL (50-199) H 06/14/20 05:44 LDL Cholesterol Direct 131 mg/dL (50-130) H 06/14/20 05:44 HDL Cholesterol 37 mg/dL (40-59) L 06/14/20 05:44 Cholesterol/HDL Ratio 5.62 % 06/14/20 05:44 Urine Color Yellow (Yellow) 06/13/20 12:02 Urine Turbidity Clear (Clear) 06/13/20 12:02 Urine pH 6.0 (5.0-7.0) 06/13/20 12:02 Ur Specific [place] 1.018 (1.003-1.030) 06/13/20 12:02 Urine Protein 30 mg/dl mg/dL (Negative) 06/13/20 12:02 Urine Glucose (UA) Neg mg/dL (Negative) 06/13/20 12:02 Urine Ketones Neg mg/dL (Negative) 06/13/20 12:02 Urine Blood Neg (Negative) 06/13/20 12:02 Urine Nitrite Neg (Negative) 06/13/20 12:02 Urine Bilirubin Neg (Negative) 06/13/20 12:02 Urine Urobilinogen < 2.0 mg/dL (<2.0) 06/13/20 12:02 Ur Leukocyte Esterase Neg (Negative) 06/13/20 12:02 Urine WBC (Auto) 2.0 /HPF (0.0-6.0) 06/13/20 12:02 Urine RBC (Auto) 1.0 /HPF (0.0-6.0) 06/13/20 12:02 U Epithel Cells (Auto) 4.0 /HPF (0-13.0) 06/13/20 12:02 Urine Mucus Few /HPF 06/13/20 12:02 Richards/IV: Voiding Method External Female Catheter IV Catheter Type [Right Peripheral IV Antecubital] Active Medications - Current Medications Current Medications: Generic Name Dose Route Start Last Admin Trade Name Freq PRN Reason Stop Dose Admin Acetaminophen 650 mg 06/13/20 12:38 Acetaminophen 325 Mg Tab PO Q4H PRN Pain, Mild (1-3) Aspirin 325 mg 06/14/20 10:00 06/14/20 09:26 Aspirin 325 Mg Tab PO 325 mg QDAY COLETTE Administration Atorvastatin Calcium 40 mg 06/13/20 22:00 06/13/20 21:00 Atorvastatin 40 Mg Tab PO 40 mg QHS COLETTE Administration Bisacodyl 10 mg 06/13/20 12:38 Bisacodyl 10 Mg Rect Supp PA QDAY PRN Constipation Magnesium Hydroxide 30 ml 06/13/20 12:38 Magnesium Hydroxide (Mom) Oral Liqd Udc PO Q4H PRN Constipation Metoclopramide HCl 10 mg 06/13/20 12:38 Metoclopramide 10 Mg Tab PO Q6H PRN Nausea And Vomiting Ondansetron HCl 4 mg 06/13/20 12:38 Ondansetron 4 Mg/2 Ml Inj IV Q8H PRN Nausea And Vomiting Promethazine HCl 25 mg 06/13/20 12:38 Promethazine 25 Mg Rect Supp PA Q6H PRN Nausea And Vomiting Sodium Chloride 10 ml 06/13/20 12:38 Sodium Chloride 0.9% 10 Ml Flush Syringe IV PRN PRN LINE FLUSH
[2020-06-14] MEDS: hydroCHLOROthiazide 25 MG TAB PO SCH (11:53)
--- NOTE | 2020-06-14 15:27 | Magnetic Resonance Report ---
MRA NECK 06/14/2020 INDICATION / CLINICAL INFORMATION: Stroke symptoms. TECHNIQUE: Routine MRA of the neck are performed. 3-D/MIP reformats postprocessed. Percentage stenosis is deter mined by direct quantitative measurements of distal internal carotid artery diameter compared with no rmal reference segments or by criteria similar to NASCET where applicable. COMPARISON: None available. FINDINGS: Unenhanced MR angiographic images of the neck were obtained. 3D/MIP reformats were post-processed. Some motion artifact is present. Carotid bifurcations: No evidence of carotid bifurcation stenosis. Common carotid arteries: No significant abnormality. Cervical internal carotid arteries: No significant abnormality. Cervical vertebral arteries: No significant abnormality. Visible aortic arch: Not well visualized IMPRESSION: No evidence of carotid bifurcation stenosis. Signer Name: Alexy Mondragon MD Signed: 06/14/2020 3:22 PM Workstation Name: [id number]
--- NOTE | 2020-06-14 15:35 | Magnetic Resonance Report ---
MRA HEAD 06/14/2020 INDICATION / CLINICAL INFORMATION: Stroke symptoms. TECHNIQUE: Routine MRA of the head is performed. 3-D/MIP reformats postprocessed. COMPARISON: None available. FINDINGS: Quality is somewhat limited in overall resolution, associated with mild patient motion artifact. MRA HEAD: Intracranial internal carotid arteries: Mild atherosclerotic irregularity of distal ICAs bilaterally. 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 Anterior cerebral arteries: No evidence of occlusion. Atherosclerotic irregularity. Middle cerebral arteries: Prominent atherosclerotic type irregularity of right MCA. Left MCA is not w ell seen in the the limited by artifact or prior occlusion. Intracranial vertebral arteries: Left distal vertebral artery is hypoplastic. Basilar artery: No significant abnormality. Posterior cerebral arteries: Proximal posterior cerebral arteries not well seen. It is unclear whethe r this is artifactual signal loss or evidence of vessel narrowing or stenosis. IMPRESSION: Limited vascular visualization at several levels as described above. Possible right P-co mm aneurysm. Depending on details of clinical circumstances and indications, further evaluation with CT angiography may be helpful. Signer Name: Alexy Mondragon MD Signed: 06/14/2020 3:31 PM Workstation Name: [id number]
[2020-06-14] MEDS: hydrALAZINE 20 MG/1 ML INJ IV PRN (18:17)
[2020-06-15] MEDS: ASPIRIN 325 MG TAB PO SCH (09:38)
[2020-06-15] MEDS: hydroCHLOROthiazide 25 MG TAB PO SCH (09:38)
[2020-06-15] MEDS: hydrALAZINE 20 MG/1 ML INJ IV PRN (09:38)
--- NOTE | 2020-06-15 13:07 | Progress Note ---
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 Patient is confused, dysarthric at the time of my evaluation and is unable to provide history. Patient daughter is at bedside at time of my exam and interview and provides history. As per daughter, the patient has experienced increased weakness and unsteady gait over the past 3 days with persistently worsening symptoms over the past 1 day. Patient daughter reports that patient has experienced increased difficulty with ambulation due to right-sided weakness as well as increased difficulty with speaking. EMS was notified and upon arrival the patient was found to be in distress with a neurologic deficit. A code stroke was called and the patient was transported to [facility] for further care and evaluation of the aforementioned symptoms. The patient was seen and evaluated in the emergency department. All lab and imaging studies reviewed. Patient found to have clinical symptoms consistent with CVA. The patient was placed in observation status and admitted to telemetry and initiated on CVA protocol due to increased risk of worsening symptoms. Patient daughter denies fever, chills, chest pain, palpitation, productive cough, skin rash, recent ill contacts, or known exposure to COVID-19. No prior admission for review. All medication listed at time of admission has been reconciled. Advanced care planning conducted in ED. EXPRESSIVE ASPHSIA SINCE LAST STROKE IN 2017 BUT WORSE Right HEMIPLEGIA NEW Control BP 06/15: Awaiting MRI. Continue PT OT evaluation. continue asa and statin (1) Acute CVA (cerebrovascular accident) Current Visit: Yes Status: Acute Plan to address problem: CVA protocol: CT head, echocardiogram, carotid Doppler, physical therapy consulted, speech therapy consulted, Occupational Therapy consulted, antiplatelet therapy, neuro check, seizure precaution, aspiration precautions, fall precautions, teleneurology consulted in ED. Lipid panel, statin therapy. (2) Right hemiparesis Current Visit: Yes Status: Acute Plan to address problem: Physical therapy consulted, supportive care, (3) Hypertension Current Visit: Yes Status: Acute Qualifiers: Hypertension type: essential hypertension Qualified Code(s): I10 - Essential (primary) hypertension Plan to address problem: Monitor blood pressure every shift, permissive hypertension overnight. (4) Pituitary mass Current Visit: Yes Status: Acute Plan to address problem: Neurology consulted, further care and evaluation as per neurology team. (5) Dysarthria Current Visit: No Status: Acute Plan to address problem: Speech therapy consulted, supportive care. (6) DVT prophylaxis Current Visit: Yes Status: Acute Plan to address problem: SCD to bilateral lower extremities while in bed, prophylactic anticoagulation (7) Advance care planning Current Visit: Yes Status: Acute Plan to address problem: Disease education conducted, patient is full code, prognosis discussed, care plan discussed, patient daughter acknowledges understanding and agreement with care plan, +30 minutes. History Interval history: Patient seen and examined still with expressive aphasia still persist Hospitalist Physical - Physical exam Narrative exam: General appearance: Present: mild distress - EENT Eyes: Present: PERRL ENT: hearing intact, clear oral mucosa - Neck Neck: Present: supple, normal ROM - Respiratory Respiratory effort: normal Respiratory: bilateral: CTA - Cardiovascular Heart Sounds: Present: S1 & S2. Absent: rub, click - Extremities Extremities: pulses symmetrical, No edema Peripheral Pulses: within normal limits - Abdominal General gastrointestinal: Present: soft, non-tender, non-distended, normal bowel sounds Female genitourinary: Present: normal - Integumentary Integumentary: Present: clear, warm, dry - Musculoskeletal Musculoskeletal: right sided weakness - Psychiatric Psychiatric: no appropriate mood/affect, no intact judgment & insight, no memory intact - Neurologic Neurologic: CNII-XII intact, focal deficits EXIST, motor right 0/5.EXPRESSIVE APHASIA - Constitutional Vitals: Temp Pulse Resp BP Pulse Ox 98.5 F 103 H 18 148/70 98 06/15/20 11:23 06/15/20 11:23 06/15/20 11:23 06/15/20 11:23 06/15/20 11:23 General appearance: Present: mild distress HEART Score - HEART Score Troponin: Troponin T < 0.010 ng/mL (0.00-0.029) 06/13/20 11:38 Results - Labs CBC & Chem 7: 06/13/20 11:38 06/13/20 11:38 Labs: Laboratory Last Values WBC 8.6 K/mm3 (4.5-11.0) 06/13/20 11:38 RBC 4.71 M/mm3 (3.65-5.03) 06/13/20 11:38 Hgb 12.5 gm/dl (10.1-14.3) 06/13/20 11:38 Hct 38.5 % (30.3-42.9) 06/13/20 11:38 MCV 82 fl (79-97) 06/13/20 11:38 MCH 27 pg (28-32) L 06/13/20 11:38 MCHC 32 % (30-34) 06/13/20 11:38 RDW 17.3 % (13.2-15.2) H 06/13/20 11:38 Plt Count 206 K/mm3 (140-440) 06/13/20 11:38 Lymph % (Auto) 19.2 % (13.4-35.0) 06/13/20 11:38 [place] % (Auto) 5.3 % (0.0-7.3) 06/13/20 11:38 Eos % (Auto) 1.3 % (0.0-4.3) 06/13/20 11:38 Baso % (Auto) 0.8 % (0.0-1.8) 06/13/20 11:38 Lymph # (Auto) 1.6 K/mm3 (1.2-5.4) 06/13/20 11:38 [place] # (Auto) 0.5 K/mm3 (0.0-0.8) 06/13/20 11:38 Eos # (Auto) 0.1 K/mm3 (0.0-0.4) 06/13/20 11:38 Baso # (Auto) 0.1 K/mm3 (0.0-0.1) 06/13/20 11:38 Seg Neutrophils % 73.4 % (40.0-70.0) H 06/13/20 11:38 Seg Neutrophils # 6.3 K/mm3 (1.8-7.7) 06/13/20 11:38 PT 13.1 Sec. (12.2-14.9) 06/13/20 11:38 INR 1.00 (0.87-1.13) 06/13/20 11:38 APTT 26.1 Sec. (24.2-36.6) 06/13/20 11:38 Sodium 144 mmol/L (137-145) 06/13/20 11:38 Potassium 3.1 mmol/L (3.6-5.0) L 06/13/20 11:38 Chloride 106.9 mmol/L (98-107) 06/13/20 11:38 Carbon Dioxide 28 mmol/L (22-30) 06/13/20 11:38 Anion Gap 12 mmol/L 06/13/20 11:38 BUN 20 mg/dL (7-17) H 06/13/20 11:38 Creatinine 1.3 mg/dL (0.6-1.2) H 06/13/20 11:38 Estimated GFR 48 ml/min 06/13/20 11:38 BUN/Creatinine Ratio 15 % 06/13/20 11:38 Glucose 93 mg/dL (65-100) 06/13/20 11:38 POC Glucose 84 mg/dL (70-105) 06/15/20 07:11 Calcium 9.0 mg/dL (8.4-10.2) 06/13/20 11:38 Total Bilirubin 0.40 mg/dL (0.1-1.2) 06/13/20 11:38 AST 13 units/L (5-40) 06/13/20 11:38 ALT < 5 units/L (7-56) L 06/13/20 11:38 Alkaline Phosphatase 53 units/L (35-129) 06/13/20 11:38 Troponin T < 0.010 ng/mL (0.00-0.029) 06/13/20 11:38 Total Protein 6.9 g/dL (6.3-8.2) 06/13/20 11:38 Albumin 3.7 g/dL (3.9-5) L 06/13/20 11:38 Albumin/Globulin Ratio 1.2 % 06/13/20 11:38 Triglycerides 186 mg/dL (2-149) H 06/14/20 05:44 Cholesterol 208 mg/dL (50-199) H 06/14/20 05:44 LDL Cholesterol Direct 131 mg/dL (50-130) H 06/14/20 05:44 HDL Cholesterol 37 mg/dL (40-59) L 06/14/20 05:44 Cholesterol/HDL Ratio 5.62 % 06/14/20 05:44 Urine Color Yellow (Yellow) 06/13/20 12:02 Urine Turbidity Clear (Clear) 06/13/20 12:02 Urine pH 6.0 (5.0-7.0) 06/13/20 12:02 Ur Specific [place] 1.018 (1.003-1.030) 06/13/20 12:02 Urine Protein 30 mg/dl mg/dL (Negative) 06/13/20 12:02 Urine Glucose (UA) Neg mg/dL (Negative) 06/13/20 12:02 Urine Ketones Neg mg/dL (Negative) 06/13/20 12:02 Urine Blood Neg (Negative) 06/13/20 12:02 Urine Nitrite Neg (Negative) 06/13/20 12:02 Urine Bilirubin Neg (Negative) 06/13/20 12:02 Urine Urobilinogen < 2.0 mg/dL (<2.0) 06/13/20 12:02 Ur Leukocyte Esterase Neg (Negative) 06/13/20 12:02 Urine WBC (Auto) 2.0 /HPF (0.0-6.0) 06/13/20 12:02 Urine RBC (Auto) 1.0 /HPF (0.0-6.0) 06/13/20 12:02 U Epithel Cells (Auto) 4.0 /HPF (0-13.0) 06/13/20 12:02 Urine Mucus Few /HPF 06/13/20 12:02 Richards/IV: Voiding Method Incontinent IV Catheter Type [Right Peripheral IV Antecubital] Active Medications - Current Medications Current Medications: Generic Name Dose Route Start Last Admin Trade Name Freq PRN Reason Stop Dose Admin Acetaminophen 650 mg 06/13/20 12:38 Acetaminophen 325 Mg Tab PO Q4H PRN Pain, Mild (1-3) Aspirin 325 mg 06/14/20 10:00 06/15/20 09:38 Aspirin 325 Mg Tab PO 325 mg QDAY COLETTE Administration Atorvastatin Calcium 40 mg 06/13/20 22:00 06/14/20 21:18 Atorvastatin 40 Mg Tab PO 40 mg QHS COLETTE Administration Bisacodyl 10 mg 06/13/20 12:38 Bisacodyl 10 Mg Rect Supp SC QDAY PRN Constipation Hydralazine HCl 10 mg 06/14/20 11:00 06/15/20 09:38 Hydralazine 20 Mg/1 Ml Inj IV 10 mg Q4HR PRN Administration Hypertension Hydrochlorothiazide 25 mg 06/14/20 11:00 06/15/20 09:38 Hydrochlorothiazide 25 Mg Tab PO 25 mg QDAY [place]LE[place] Administration Magnesium Hydroxide 30 ml 06/13/20 12:38 Magnesium Hydroxide (Mom) Oral Liqd Udc PO Q4H PRN Constipation Metoclopramide HCl 10 mg 06/13/20 12:38 Metoclopramide 10 Mg Tab PO Q6H PRN Nausea And Vomiting Ondansetron HCl 4 mg 06/13/20 12:38 Ondansetron 4 Mg/2 Ml Inj IV Q8H PRN Nausea And Vomiting Promethazine HCl 25 mg 06/13/20 12:38 Promethazine 25 Mg Rect Supp SC Q6H PRN Nausea And Vomiting Sodium Chloride 10 ml 06/13/20 12:38 06/15/20 09:38 Sodium Chloride 0.9% 10 Ml Flush Syringe IV 10 ml PRN PRN Administration LINE FLUSH
--- NOTE | 2020-06-15 15:17 | Magnetic Resonance Report ---
MRI BRAIN 06/14/2020 INDICATION / CLINICAL INFORMATION: Brain mass. Stroke symptoms.. TECHNIQUE: Multiplanar, multisequence MR images of the brain were obtained. COMPARISON: CT brain 06/13/2020 FINDINGS: BRAIN / INTRACRANIAL CONTENTS: Unenhanced and enhanced MR images of the brain were obtained. There are patchy areas of restricted diffusion present in the distribution of the left middle cerebra l artery. This involves cortical and subcortical structures. The diffusion signal change is not confl uent. There is some associated decreased ADC signal, and the overall pattern is consistent with patch y cortical and subcortical acute ischemic change in left MCA distribution. There is no evidence of ed latrice or mass effect. There is no evidence of hemorrhage. As seen on the earlier CT scan, there is a prominent sellar mass, associated with suprasellar extensi on. This masses partially solid and partially cystic, with overall size of 2.7 x 2.0 x 2.1 cm. Enhanc ing solid components are present. The suprasellar extension is likely to be associated with upward di splacement of the optic chiasm. Differential diagnosis would include cystic adenoma, craniopharyngiom a, less likely metastatic lesion. Underlying age-related atrophic changes and mild chronic white matter T2 weighted hyperintensities ar e present. EXTRACRANIAL: Unremarkable CRANIOCERVICAL JUNCTION: No significant abnormality. VASCULAR FLOW-VOIDS: No significant abnormality. IMPRESSION: 1. Patchy recent ischemic changes in left MCA distribution, with no evidence of mass effect or hemorr robbi. 2. 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 Signer Name: Alexy Mondragon MD Signed: 06/15/2020 3:12 PM Workstation Name: [id number]
[2020-06-16] MEDS: ASPIRIN 325 MG TAB PO SCH (10:25)
[2020-06-16] MEDS: hydroCHLOROthiazide 25 MG TAB PO SCH (10:25)
--- NOTE | 2020-06-16 10:51 | Progress Note ---
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 Patient is confused, dysarthric at the time of my evaluation and is unable to provide history. Patient daughter is at bedside at time of my exam and interview and provides history. As per daughter, the patient has experienced increased weakness and unsteady gait over the past 3 days with persistently worsening symptoms over the past 1 day. Patient daughter reports that patient has experienced increased difficulty with ambulation due to right-sided weakness as well as increased difficulty with speaking. EMS was notified and upon arrival the patient was found to be in distress with a neurologic deficit. A code stroke was called and the patient was transported to [facility] for further care and evaluation of the aforementioned symptoms. The patient was seen and evaluated in the emergency department. All lab and imaging studies reviewed. Patient found to have clinical symptoms consistent with CVA. The patient was placed in observation status and admitted to telemetry and initiated on CVA protocol due to increased risk of worsening symptoms. Patient daughter denies fever, chills, chest pain, palpitation, productive cough, skin rash, recent ill contacts, or known exposure to COVID-19. No prior admission for review. All medication listed at time of admission has been reconciled. Advanced care planning conducted in ED. EXPRESSIVE ASPHSIA SINCE LAST STROKE IN 2017 BUT WORSE Right HEMIPLEGIA NEW Control BP 06/15: Awaiting MRI. Continue PT OT evaluation. continue asa and statin 06/16: noted ischemic changes in the MRI Brain, will discuss with family, Discussed with PT, LIKELY NEED SNF. Case management consult placed. Will check Covid testing as this is not a new requirement for more SNF. Blood pressure is better controlled. Continue PT while in-house. Will repeat BMP considering mild acute kidney injury noted. There was no mention of pituitary mass on the imaging study of MRI obtained. Unfortunately this exam was limited due to no contrast. May need repeat outpatient. We will also add Norvasc 5 mg due to persistently elevated systolic blood pressure. (1) Acute CVA (cerebrovascular accident) Current Visit: Yes Status: Acute Plan to address problem: CVA protocol: CT head, echocardiogram, carotid Doppler, physical therapy consul rex, speech therapy consulted, Occupational Therapy consulted, antiplatelet therapy, neuro check, seizure precaution, aspiration precautions, fall precautions, teleneurology consulted in ED. Lipid panel, statin therapy. (2) Right hemiparesis Current Visit: Yes Status: Acute Plan to address problem: Physical therapy consulted, supportive care, (3) Hypertension Current Visit: Yes Status: Acute Qualifiers: Hypertension type: essential hypertension Qualified Code(s): I10 - Ess ential (primary) hypertension Plan to address problem: Monitor blood pressure every shift, permissive hypertension overnight. (4) Pituitary mass Current Visit: Yes Status: Acute Plan to address problem: Neurology consulted, further care and evaluation as per neurology team. (5) Dysarthria Current Visit: No Status: Acute Plan to address problem: Speech therapy consulted, supportive care. (6) DVT prophylaxis Current Visit: Yes Status: Acute Plan to address problem: SCD to bilateral lower extremities while in bed, prophylactic anticoagulation (7) Advance care planning Current Visit: Yes Status: Acute Plan to address problem: Disease education conducted, patient is full code, prognosis discussed, care plan discussed, patient daughter acknowledges understanding and agreement with c are plan, +30 minutes. History Interval history: Patient seen and examined still with expressive aphasia still persist, working with PT Hospitalist Physical - Physical exam Narrative exam: General appearance: Present: mild distress - EENT Eyes: Present: PERRL, facial drop ENT: hearing intact, clear oral mucosa - Neck Neck: Present: supple, normal ROM - Respiratory Respiratory effort: normal Respiratory: bilateral: CTA - Cardiovascular Heart Sounds: Present: S1 & S2. Absent: rub, click - Extremities Extremities: pulses symmetrical, No edema Peripheral Pulses: within normal limits - Abdominal General gastrointestinal: Present: soft, non-tender, non-distended, normal bowel sounds Female genitourinary: Present: normal - Integumentary Integumentary: Present: clear, warm, dry - Musculoskeletal Musculoskeletal: right sided weakness - Psychiatric Psychiatric: no appropriate mood/affect, no intact judgment & insight, no memory intact - Neurologic Neurologic: CNII-XII intact, focal deficits EXIST, motor right 0/5.EXPRESSIVE APHASIA - Constitutional Vitals: Temp Pulse Resp BP Pulse Ox 98.2 F 87 18 180/95 98 06/16/20 07:59 06/16/20 08:37 06/16/20 07:59 06/16/20 07:59 06/16/20 07:59 General appearance: Present: mild distress HEART Score - HEART Score Troponin: Troponin T < 0.010 ng/mL (0.00-0.029) 06/13/20 11:38 Results - Labs CBC & Chem 7: 06/13/20 11:38 06/13/20 11:38 Labs: Laboratory Last Values WBC 8.6 K/mm3 (4.5-11.0) 06/13/20 11:38 RBC 4.71 M/mm3 (3.65-5.03) 06/13/20 11:38 Hgb 12.5 gm/dl (10.1-14.3) 06/13/20 11:38 Hct 38.5 % (30.3-42.9) 06/13/20 11:38 MCV 82 fl (79-97) 06/13/20 11:38 MCH 27 pg (28-32) L 06/13/20 11:38 MCHC 32 % (30-34) 06/13/20 11:38 RDW 17.3 % (13.2-15.2) H 06/13/20 11:38 Plt Count 206 K/mm3 (140-440) 06/13/20 11:38 Lymph % (Auto) 19.2 % (13.4-35.0) 06/13/20 11:38 [place] % (Auto) 5.3 % (0.0-7.3) 06/13/20 11:38 Eos % (Auto) 1.3 % (0.0-4.3) 06/13/20 11:38 Baso % (Auto) 0.8 % (0.0-1.8) 06/13/20 11:38 Lymph # (Auto) 1.6 K/mm3 (1.2-5.4) 06/13/20 11:38 [place] # (Auto) 0.5 K/mm3 (0.0-0.8) 06/13/20 11:38 Eos # (Auto) 0.1 K/mm3 (0.0-0.4) 06/13/20 11:38 Baso # (Auto) 0.1 K/mm3 (0.0-0.1) 06/13/20 11:38 Seg Neutrophils % 73.4 % (40.0-70.0) H 06/13/20 11:38 Seg Neutrophils # 6.3 K/mm3 (1.8-7.7) 06/13/20 11:38 PT 13.1 Sec. (12.2-14.9) 06/13/20 11:38 INR 1.00 (0.87-1.13) 06/13/20 11:38 APTT 26.1 Sec. (24.2-36.6) 06/13/20 11:38 Sodium 144 mmol/L (137-145) 06/13/20 11:38 Potassium 3.1 mmol/L (3.6-5.0) L 06/13/20 11:38 Chloride 106.9 mmol/L (98-107) 06/13/20 11:38 Carbon Dioxide 28 mmol/L (22-30) 06/13/20 11:38 Anion Gap 12 mmol/L 06/13/20 11:38 BUN 20 mg/dL (7-17) H 06/13/20 11:38 Creatinine 1.3 mg/dL (0.6-1.2) H 06/13/20 11:38 Estimated GFR 48 ml/min 06/13/20 11:38 BUN/Creatinine Ratio 15 % 06/13/20 11:38 Glucose 93 mg/dL (65-100) 06/13/20 11:38 POC Glucose 84 mg/dL (70-105) 06/15/20 07:11 Calcium 9.0 mg/dL (8.4-10.2) 06/13/20 11:38 Total Bilirubin 0.40 mg/dL (0.1-1.2) 06/13/20 11:38 AST 13 units/L (5-40) 06/13/20 11:38 ALT < 5 units/L (7-56) L 06/13/20 11:38 Alkaline Phosphatase 53 units/L (35-129) 06/13/20 11:38 Troponin T < 0.010 ng/mL (0.00-0.029) 06/13/20 11:38 Total Protein 6.9 g/dL (6.3-8.2) 06/13/20 11:38 Albumin 3.7 g/dL (3.9-5) L 06/13/20 11:38 Albumin/Globulin Ratio 1.2 % 06/13/20 11:38 Triglycerides 186 mg/dL (2-149) H 06/14/20 05:44 Cholesterol 208 mg/dL (50-199) H 06/14/20 05:44 LDL Cholesterol Direct 131 mg/dL (50-130) H 06/14/20 05:44 HDL Cholesterol 37 mg/dL (40-59) L 06/14/20 05:44 Cholesterol/HDL Ratio 5.62 % 06/14/20 05:44 Urine Color Yellow (Yellow) 06/13/20 12:02 Urine Turbidity Clear (Clear) 06/13/20 12:02 Urine pH 6.0 (5.0-7.0) 06/13/20 12:02 Ur Specific [place] 1.018 (1.003-1.030) 06/13/20 12:02 Urine Protein 30 mg/dl mg/dL (Negative) 06/13/20 12:02 Urine Glucose (UA) Neg mg/dL (Negative) 06/13/20 12:02 Urine Ketones Neg mg/dL (Negative) 06/13/20 12:02 Urine Blood Neg (Negative) 06/13/20 12:02 Urine Nitrite Neg (Negative) 06/13/20 12:02 Urine Bilirubin Neg (Negative) 06/13/20 12:02 Urine Urobilinogen < 2.0 mg/dL (<2.0) 06/13/20 12:02 Ur Leukocyte Esterase Neg (Negative) 06/13/20 12:02 Urine WBC (Auto) 2.0 /HPF (0.0-6.0) 06/13/20 12:02 Urine RBC (Auto) 1.0 /HPF (0.0-6.0) 06/13/20 12:02 U Epithel Cells (Auto) 4.0 /HPF (0-13.0) 06/13/20 12:02 Urine Mucus Few /HPF 06/13/20 12:02 Richards/IV: Voiding Method External Female Catheter IV Catheter Type [Right Peripheral IV Antecubital] Active Medications - Current Medications Current Medications: Generic Name Dose Route Start Last Admin Trade Name Freq PRN Reason Stop Dose Admin Acetaminophen 650 mg 06/13/20 12:38 Acetaminophen 325 Mg Tab PO Q4H PRN Pain, Mild (1-3) Aspirin 325 mg 06/14/20 10:00 06/16/20 10:25 Aspirin 325 Mg Tab PO 325 mg QDAY COLETTE Administration Atorvastatin Calcium 40 mg 06/13/20 22:00 06/15/20 21:10 Atorvastatin 40 Mg Tab PO 40 mg QHS COLETTE Administration Bisacodyl 10 mg 06/13/20 12:38 Bisacodyl 10 Mg Rect Supp [place] QDAY PRN Constipation Hydralazine HCl 10 mg 06/14/20 11:00 06/15/20 09:38 Hydralazine 20 Mg/1 Ml Inj IV 10 mg Q4HR PRN Administration Hypertension Hydrochlorothiazide 25 mg 06/14/20 11:00 06/16/20 10:25 Hydrochlorothiazide 25 Mg Tab PO 25 mg QDAY COLETTE Administration Magnesium Hydroxide 30 ml 06/13/20 12:38 Magnesium Hydroxide (Mom) Oral Liqd Udc PO Q4H PRN Constipation Metoclopramide HCl 10 mg 06/13/20 12:38 Metoclopramide 10 Mg Tab PO Q6H PRN Nausea And Vomiting Ondansetron HCl 4 mg 06/13/20 12:38 Ondansetron 4 Mg/2 Ml Inj IV Q8H PRN Nausea And Vomiting Promethazine HCl 25 mg 06/13/20 12:38 Promethazine 25 Mg Rect Supp [place] Q6H PRN Nausea And Vomiting Sodium Chloride 10 ml 06/13/20 12:38 06/15/20 09:38 Sodium Chloride 0.9% 10 Ml Flush Syringe IV 10 ml PRN PRN Administration LINE FLUSH
[2020-06-16] MEDS: amLODIPine 5 MG TAB PO SCH (11:18)
--- NOTE | 2020-06-16 14:22 | Consultation ---
History of Present Illness Consult date: 06/16/20 Reason for Consult: CVA Chief complaint: Right-sided weakness History of present illness: 80 yo female with htn, who presents with aphasia and right-sided weakness. No IV-tPA or JOSE RAUL noted in the ED per teleneurology evaluation. Workup reveals partial left mca territory infarctions on MR Brain. Patient remains aphasic with right-sided weakness. Past History Past Medical History: hypertension, stroke Past Surgical History: No surgical history, Other (Reviewed) Social history: . denies: smoking, alcohol abuse Family history: diabetes, hypertension Medications and Allergies Allergies Allergy/AdvReac Type Severity Reaction Status Date / Time No Known Allergies Allergy Unverified 06/06/20 13:51 Home Medications Medication Instructions Recorded Confirmed Last Taken Type Amoxicillin/Potassium Clav 1 each PO Q12HR 10 Days #20 tablet 06/06/20 06/13/20 Unknown Rx [Augmentin 875-125 Tablet] Aspirin 81 mg PO DAILY 06/06/20 06/13/20 06/12/20 History Active Meds: Active Medications Acetaminophen (Acetaminophen 325 Mg Tab) 650 mg PO Q4H PRN PRN Reason: Pain, Mild (1-3) Amlodipine Besylate (Amlodipine 5 Mg Tab) 5 mg PO QDAY [facility] Last Admin: 06/16/20 11:18 Dose: 5 mg Documented by: Aspirin (Aspirin 325 Mg Tab) 325 mg PO QDAY [facility] Last Admin: 06/16/20 10:25 Dose: 325 mg Documented by: Atorvastatin Calcium (Atorvastatin 40 Mg Tab) 40 mg PO QHS [facility] Last Admin: 06/15/20 21:10 Dose: 40 mg Documented by: Bisacodyl (Bisacodyl 10 Mg Rect Supp) 10 mg NE QDAY PRN PRN Reason: Constipation Hydralazine HCl (Hydralazine 20 Mg/1 Ml Inj) 10 mg IV Q4HR PRN PRN Reason: Hypertension Last Admin: 06/15/20 09:38 Dose: 10 mg Documented by: Hydrochlorothiazide (Hydrochlorothiazide 25 Mg Tab) 25 mg PO QDAY [facility] Last Admin: 06/16/20 10:25 Dose: 25 mg Documented by: Magnesium Hydroxide (Magnesium Hydroxide (Mom) Oral Liqd Udc) 30 ml PO Q4H PRN PRN Reason: Constipation Metoclopramide HCl (Metoclopramide 10 Mg Tab) 10 mg PO Q6H PRN PRN Reason: Nausea And Vomiting Ondansetron HCl (Ondansetron 4 Mg/2 Ml Inj) 4 mg IV Q8H PRN PRN Reason: Nausea And Vomiting Promethazine HCl (Promethazine 25 Mg Rect Supp) 25 mg NE Q6H PRN PRN Reason: Nausea And Vomiting Sodium Chloride (Sodium Chloride 0.9% 10 Ml Flush Syringe) 10 ml IV PRN PRN PRN Reason: LINE FLUSH Last Admin: 06/15/20 09:38 Dose: 10 ml Documented by: Review of Systems All systems: negative (unobtainable secondary to aphasia.) Physical Examination - Vital Signs Vital Signs: Vital Signs Pulse Resp BP Pulse Ox 72 16 217/105 99 06/13/20 10:23 06/13/20 10:23 06/13/20 10:23 06/13/20 10:23 - Physical Exam Narrative exam: Gen: nad, well-nourished; Head: normocephalic; Eyes: no gaze deviation; no ptosis; ENT: no vocalization; CVS: warm and well-perfused; Pulm: no respiratory distress; GI: non-distended; Ext: no cyanosis at distal extremities; Skin: no acute rash at distal extremities; Heme: no pathologic bruising at distal extremities; Neuro: alert, mute, aphasic; CN 2 - PERRL, visual morgan grossly intact, CN 3, 4, 6 - no gaze deviation, CN 5 - blinks spontaneously, CN 7 - facial movement decreased on right (mild), CN 8 - hearing grossly intact, CN 9, 10 - no spontaneous swallow noted, CN 11/12 - pt cannot cooperate secondary to aphasia; Motor - at least 3+/5 at left exts and at least 1/5 at right exts; Sensory - moves left>right exts to tactile stimuli, Cerebellar - aphasia prevents participation, Gait - deferred secondary to fall risk; NIHSS (1a.) Level of Consciousness:0 (1b.) LOC Questions:2 (1c.) LOC Commands:2 (2.) Best Gaze:0 (3.) Visual:0 (4.) Facial Palsy:1 (5a.) Motor Arm, Left:1 (5b.) Motor Arm, Right:3 (6a.) Motor Leg, Left:0 (6b.) Motor Leg, Right:3 (7.) Limb Ataxia:0 (8.) Sensory:1 (9.) Best Language:3 (10.) Dysarthria:2 (11.) Extinction and Inattention:0 NIHSS Total Score: 18 Results - Laboratory Findings CBC and BMP: 06/13/20 11:38 06/13/20 11:38 Abnormal Lab Findings: Abnormal Labs 06/13/20 06/13/20 06/14/20 11:38 11:38 05:44 MCH 27 L RDW 17.3 H Seg Neutrophils % 73.4 H Potassium 3.1 L BUN 20 H Creatinine 1.3 H POC Glucose ALT < 5 L Albumin 3.7 L Triglycerides 186 H Cholesterol 208 H LDL Cholesterol Direct 131 H HDL Cholesterol 37 L 06/14/20 07:50 MCH RDW Seg Neutrophils % Potassium BUN Creatinine POC Glucose 157 H ALT Albumin Triglycerides Cholesterol LDL Cholesterol Direct HDL Cholesterol Assessment and Plan 80 yo female with htn, who presents with aphasia and right-sided weakness with a partial left MCA territory stroke. 1. Acute Ischemic Stroke: ASA 325 mg PO qday, TTEcho (if negative, check a TAMI and recommend long-term cardiac moniotring for undelring paroxysmal afib), confirmk LDL/HgbA1C/TSH, telemetry, aim for normotension after 24 more hours. Statin therapy for a goal LDL of 70, when patient passes swallow evaluation. PT/OT/ST/Swallow evaluation. Long-term risk-factor modification, including a strict diet/exercise regimen for secondary stroke prophylaxis. 2. Hypertension - goal SBP 160-200 mmHg and DBP 80-100 mmHg for 24 more hours. 3. Dysarthria / Dysphagia - st / swallow evaluation/monitoring. 4. Right-sided weakness - pt/ot evaluation/monitoring. 5. Unsteady Gait - pt/ot evaluation/monitoring. 6. Sellar Leison - outpatient Ophthalmology followup in 2 weeks for possible compression of optic chiasm; outpaient followup w' Neurosurgery in 4 weeks.
[2020-06-17 09:32] LABS: Albumin 3.8 g/dL (3.9-5); BUN/Creatinine Ratio 22; Blood Urea Nitrogen 35 mg/dL (7-17); Hemolysis Index 0
[2020-06-17 09:33] LABS: Alanine Aminotransferase < 5 units/L (7-56)
[2020-06-17] MEDS: ASPIRIN 325 MG TAB PO SCH (09:46)
[2020-06-17] MEDS: hydroCHLOROthiazide 25 MG TAB PO SCH (09:46)
[2020-06-17] MEDS: amLODIPine 5 MG TAB PO SCH (09:46)
--- NOTE | 2020-06-17 20:33 | Progress Note ---
Assessment and Plan Assessment and plan: -- Acute CVA (cerebrovascular accident) Current Visit: Yes Status: Acute Plan to address problem: CVA protocol: CT head, echocardiogram, carotid Doppler, physical therapy consulted, speech therapy consulted, Occupational Therapy consulted, antiplatelet therapy, neuro check, seizure precaution, aspiration precautions, fall precautions, teleneurology consulted in ED. Lipid panel, statin therapy. --Right hemiparesis Current Visit: Yes Status: Acute Plan to address problem: Physical therapy consulted, supportive care, -- Hypertension Current Visit: Yes Status: Acute Plan to address problem: Monitor blood pressure every shift, permissive hypertension overnight. -- Pituitary mass Current Visit: Yes Status: Acute Plan to address problem: Neurology consulted, further care and evaluation as per neurology team. --Dysarthria Current Visit: No Status: Acute Plan to address problem: Speech therapy consulted, supportive care. -- DVT prophylaxis Current Visit: Yes Status: Acute Plan to address problem: SCD to bilateral lower extremities while in bed, prophylactic anticoagulation --Advance care planning Current Visit: Yes Status: Acute Plan to address problem: Disease education conducted, patient is full code, prognosis discussed, care plan discussed, patient daughter acknowledges understanding and agreement with care plan, +30 minutes. Discharge planning per case management PT and OT recommend subacute rehab History Interval history: I have seen and examined the patient at the bedside Patient's chart and medications reviewed Patient with acute CVA and right-sided hemiparesis Extensive neuro work-up reviewed Patient feels slightly better Hospitalist Physical - Constitutional Vitals: Temp Pulse Resp BP Pulse Ox 98.2 F 93 H 20 146/79 96 06/17/20 15:29 06/17/20 15:29 06/17/20 15:29 06/17/20 15:29 06/17/20 15:29 General appearance: Present: no acute distress, well-nourished - EENT Eyes: Present: PERRL, EOM intact - Neck Neck: Present: supple, normal ROM - Respiratory Respiratory effort: normal Respiratory: bilateral: diminished, negative: rales, rhonchi, wheezing - Cardiovascular Rhythm: regular Heart Sounds: Present: S1 & S2 - Extremities Extremities: no ischemia, No edema, abnormal (Right-sided weakness) - Abdominal General gastrointestinal: soft, non-tender, non-distended, normal bowel sounds - Integumentary Integumentary: Present: clear, warm - Psychiatric Psychiatric: appropriate mood/affect, cooperative - Neurologic Neurologic: other (Right-sided hemiparesis) HEART Score - HEART Score Troponin: Troponin T < 0.010 ng/mL (0.00-0.029) 06/13/20 11:38 Results - Labs CBC & Chem 7: 06/13/20 11:38 06/17/20 08:34 Labs: Laboratory Last Values WBC 8.6 K/mm3 (4.5-11.0) 06/13/20 11:38 RBC 4.71 M/mm3 (3.65-5.03) 06/13/20 11:38 Hgb 12.5 gm/dl (10.1-14.3) 06/13/20 11:38 Hct 38.5 % (30.3-42.9) 06/13/20 11:38 MCV 82 fl (79-97) 06/13/20 11:38 MCH 27 pg (28-32) L 06/13/20 11:38 MCHC 32 % (30-34) 06/13/20 11:38 RDW 17.3 % (13.2-15.2) H 06/13/20 11:38 Plt Count 206 K/mm3 (140-440) 06/13/20 11:38 Lymph % (Auto) 19.2 % (13.4-35.0) 06/13/20 11:38 [place] % (Auto) 5.3 % (0.0-7.3) 06/13/20 11:38 Eos % (Auto) 1.3 % (0.0-4.3) 06/13/20 11:38 Baso % (Auto) 0.8 % (0.0-1.8) 06/13/20 11:38 Lymph # (Auto) 1.6 K/mm3 (1.2-5.4) 06/13/20 11:38 [place] # (Auto) 0.5 K/mm3 (0.0-0.8) 06/13/20 11:38 Eos # (Auto) 0.1 K/mm3 (0.0-0.4) 06/13/20 11:38 Baso # (Auto) 0.1 K/mm3 (0.0-0.1) 06/13/20 11:38 Seg Neutrophils % 73.4 % (40.0-70.0) H 06/13/20 11:38 Seg Neutrophils # 6.3 K/mm3 (1.8-7.7) 06/13/20 11:38 PT 13.1 Sec. (12.2-14.9) 06/13/20 11:38 INR 1.00 (0.87-1.13) 06/13/20 11:38 APTT 26.1 Sec. (24.2-36.6) 06/13/20 11:38 Sodium 141 mmol/L (137-145) 06/17/20 08:34 Potassium 3.0 mmol/L (3.6-5.0) L 06/17/20 08:34 Chloride 98.9 mmol/L (98-107) 06/17/20 08:34 Carbon Dioxide 28 mmol/L (22-30) 06/17/20 08:34 Anion Gap 17 mmol/L 06/17/20 08:34 BUN 35 mg/dL (7-17) H 06/17/20 08:34 Creatinine 1.6 mg/dL (0.6-1.2) H 06/17/20 08:34 Estimated GFR 37 ml/min 06/17/20 08:34 BUN/Creatinine Ratio 22 % 06/17/20 08:34 Glucose 112 mg/dL (65-100) H 06/17/20 08:34 POC Glucose 84 mg/dL (70-105) 06/15/20 07:11 Calcium 9.0 mg/dL (8.4-10.2) 06/17/20 08:34 Total Bilirubin 0.50 mg/dL (0.1-1.2) 06/17/20 08:34 AST 13 units/L (5-40) 06/17/20 08:34 ALT < 5 units/L (7-56) L 06/17/20 08:34 Alkaline Phosphatase 64 units/L (35-129) 06/17/20 08:34 Troponin T < 0.010 ng/mL (0.00-0.029) 06/13/20 11:38 Total Protein 6.5 g/dL (6.3-8.2) 06/17/20 08:34 Albumin 3.8 g/dL (3.9-5) L 06/17/20 08:34 Albumin/Globulin Ratio 1.4 % 06/17/20 08:34 Triglycerides 186 mg/dL (2-149) H 06/14/20 05:44 Cholesterol 208 mg/dL (50-199) H 06/14/20 05:44 LDL Cholesterol Direct 131 mg/dL (50-130) H 06/14/20 05:44 HDL Cholesterol 37 mg/dL (40-59) L 06/14/20 05:44 Cholesterol/HDL Ratio 5.62 % 06/14/20 05:44 Urine Color Yellow (Yellow) 06/13/20 12:02 Urine Turbidity Clear (Clear) 06/13/20 12:02 Urine pH 6.0 (5.0-7.0) 06/13/20 12:02 Ur Specific [place] 1.018 (1.003-1.030) 06/13/20 12:02 Urine Protein 30 mg/dl mg/dL (Negative) 06/13/20 12:02 Urine Glucose (UA) Neg mg/dL (Negative) 06/13/20 12:02 Urine Ketones Neg mg/dL (Negative) 06/13/20 12:02 Urine Blood Neg (Negative) 06/13/20 12:02 Urine Nitrite Neg (Negative) 06/13/20 12:02 Urine Bilirubin Neg (Negative) 06/13/20 12:02 Urine Urobilinogen < 2.0 mg/dL (<2.0) 06/13/20 12:02 Ur Leukocyte Esterase Neg (Negative) 06/13/20 12:02 Urine WBC (Auto) 2.0 /HPF (0.0-6.0) 06/13/20 12:02 Urine RBC (Auto) 1.0 /HPF (0.0-6.0) 06/13/20 12:02 U Epithel Cells (Auto) 4.0 /HPF (0-13.0) 06/13/20 12:02 Urine Mucus Few /HPF 06/13/20 12:02 Coronavirus (PCR) Negative (Negative) 06/17/20 09:52 Richards/IV: Voiding Method External Female Catheter IV Catheter Type [Right INT / [place] Antecubital] Active Medications - Current Medications Current Medications: Generic Name Dose Route Start Last Admin Trade Name Freq PRN Reason Stop Dose Admin Acetaminophen 650 mg 06/13/20 12:38 Acetaminophen 325 Mg Tab PO Q4H PRN Pain, Mild (1-3) Amlodipine Besylate 5 mg 06/16/20 11:00 06/17/20 09:46 Amlodipine 5 Mg Tab PO 5 mg QDAY COLETTE Administration Aspirin 325 mg 06/14/20 10:00 06/17/20 09:46 Aspirin 325 Mg Tab PO 325 mg QDAY COLETT[place] Administration Atorvastatin Calcium 40 mg 06/13/20 22:00 06/16/20 22:55 Atorvastatin 40 Mg Tab PO 40 mg QHS COLETTE Administration Bisacodyl 10 mg 06/13/20 12:38 Bisacodyl 10 Mg Rect Supp [place] QDAY PRN Constipation Hydralazine HCl 10 mg 06/14/20 11:00 06/15/20 09:38 Hydralazine 20 Mg/1 Ml Inj IV 10 mg Q4HR PRN Administration Hypertension Hydrochlorothiazide 25 mg 06/14/20 11:00 06/17/20 09:46 Hydrochlorothiazide 25 Mg Tab PO 25 mg QDAY [place]LETT[place] Administration Magnesium Hydroxide 30 ml 06/13/20 12:38 Magnesium Hydroxide (Mom) Oral Liqd Udc PO Q4H PRN Constipation Metoclopramide HCl 10 mg 06/13/20 12:38 Metoclopramide 10 Mg Tab PO Q6H PRN Nausea And Vomiting Ondansetron HCl 4 mg 06/13/20 12:38 Ondansetron 4 Mg/2 Ml Inj IV Q8H PRN Nausea And Vomiting Promethazine HCl 25 mg 06/13/20 12:38 Promethazine 25 Mg Rect Supp [place] Q6H PRN Nausea And Vomiting Sodium Chloride 10 ml 06/13/20 12:38 06/15/20 09:38 Sodium Chloride 0.9% 10 Ml Flush Syringe IV 10 ml PRN PRN Administration LINE FLUSH
[2020-06-18] MEDS: ASPIRIN 325 MG TAB PO SCH (09:58)
[2020-06-18] MEDS: amLODIPine 5 MG TAB PO SCH (09:58)
[2020-06-18] MEDS: hydroCHLOROthiazide 25 MG TAB PO SCH (09:58)
--- NOTE | 2020-06-18 19:13 | Progress Note ---
Assessment and Plan Assessment and plan: --Hypokalemia; K. 3.0 Current Visit: Yes Status: Acute Plan to address problem: replenish with oral KCl 40 mEq x 1 dose Monitor electrolytes -- Acute CVA (cerebrovascular accident) Current Visit: Yes Status: Acute Plan to address problem: Not a candidate for TPA CVA protocol: CT head, echocardiogram, carotid Doppler, physical therapy consulted, speech therapy consulted, Occupational Therapy consulted, antiplatelet therapy, neuro check, seizure precaution, aspiration precautions, fall precautions, teleneurology consulted in ED. Lipid panel, statin therapy. -- Right hemiparesis Current Visit: Yes Status: Acute Plan to address problem: Physical therapy , Occupational Therapy Rehabilitation follow recommendations DC planning per case management --Acute kidney injury; vasomotor nephropathy Current Visit: Yes Status: Acute Plan to address problem: gentle hydration. Monitor renal function Avoid nephrotoxins, nephrology consult if needed -- Hypertension; moderate control Current Visit: Yes Status: Acute Plan to address problem: Continue current antihypertensives As needed medications Permissive hypertension per stroke protocol --Pituitary mass Current Visit: Yes Status: Acute Plan to address problem: Neurology consulted, further care and evaluation as per neurology team. --Dysarthria Current Visit: No Status: Acute Plan to address problem: Speech therapy evaluation and management --DVT prophylaxis Current Visit: Yes Status: Acute Plan to address problem: SCD to bilateral lower extremities while in bed, prophylactic anticoagulation --Advance care planning Current Visit: Yes Status: Acute Plan to address problem: Disease education conducted, patient is full code, prognosis discussed, care plan discussed, patient daughter acknowledges understanding and agreement with care plan, +30 minutes. Discharge planning per case management PT and OT recommend subacute rehab Possible discharge tomorrow if stable History Interval history: I have seen and examined the patient at the bedside Patient's chart and medications reviewed Patient with acute CVA with right-sided hemiparesis Evaluated by PT who recommended home health Evaluated by OT, who recommended subacute rehab Patient feels better Minimally communicative Vital signs noted Hospitalist Physical - Constitutional Vitals: Temp Pulse Resp BP Pulse Ox 97.9 F 61 20 125/49 98 06/18/20 16:54 06/18/20 16:54 06/18/20 16:54 06/18/20 16:54 06/18/20 16:54 General appearance: Present: no acute distress, well-nourished - EENT Eyes: Present: PERRL, EOM intact - Neck Neck: Present: supple, normal ROM - Respiratory Respiratory effort: normal Respiratory: bilateral: diminished, negative: rales, rhonchi, wheezing - Cardiovascular Rhythm: regular Heart Sounds: Present: S1 & S2 - Extremities Extremities: no ischemia, No edema - Abdominal General gastrointestinal: soft, non-tender, non-distended, normal bowel sounds - Integumentary Integumentary: Present: clear, warm - Psychiatric Psychiatric: appropriate mood/affect, cooperative - Neurologic Neurologic: other (Right-sided hemiparesis) HEART Score - HEART Score Troponin: Troponin T < 0.010 ng/mL (0.00-0.029) 06/13/20 11:38 Results - Labs CBC & Chem 7: 06/13/20 11:38 06/17/20 08:34 Labs: Laboratory Last Values WBC 8.6 K/mm3 (4.5-11.0) 06/13/20 11:38 RBC 4.71 M/mm3 (3.65-5.03) 06/13/20 11:38 Hgb 12.5 gm/dl (10.1-14.3) 06/13/20 11:38 Hct 38.5 % (30.3-42.9) 06/13/20 11:38 MCV 82 fl (79-97) 06/13/20 11:38 MCH 27 pg (28-32) L 06/13/20 11:38 MCHC 32 % (30-34) 06/13/20 11:38 RDW 17.3 % (13.2-15.2) H 06/13/20 11:38 Plt Count 206 K/mm3 (140-440) 06/13/20 11:38 Lymph % (Auto) 19.2 % (13.4-35.0) 06/13/20 11:38 [place] % (Auto) 5.3 % (0.0-7.3) 06/13/20 11:38 Eos % (Auto) 1.3 % (0.0-4.3) 06/13/20 11:38 Baso % (Auto) 0.8 % (0.0-1.8) 06/13/20 11:38 Lymph # (Auto) 1.6 K/mm3 (1.2-5.4) 06/13/20 11:38 [place] # (Auto) 0.5 K/mm3 (0.0-0.8) 06/13/20 11:38 Eos # (Auto) 0.1 K/mm3 (0.0-0.4) 06/13/20 11:38 Baso # (Auto) 0.1 K/mm3 (0.0-0.1) 06/13/20 11:38 Seg Neutrophils % 73.4 % (40.0-70.0) H 06/13/20 11:38 Seg Neutrophils # 6.3 K/mm3 (1.8-7.7) 06/13/20 11:38 PT 13.1 Sec. (12.2-14.9) 06/13/20 11:38 INR 1.00 (0.87-1.13) 06/13/20 11:38 APTT 26.1 Sec. (24.2-36.6) 06/13/20 11:38 Sodium 141 mmol/L (137-145) 06/17/20 08:34 Potassium 3.0 mmol/L (3.6-5.0) L 06/17/20 08:34 Chloride 98.9 mmol/L (98-107) 06/17/20 08:34 Carbon Dioxide 28 mmol/L (22-30) 06/17/20 08:34 Anion Gap 17 mmol/L 06/17/20 08:34 BUN 35 mg/dL (7-17) H 06/17/20 08:34 Creatinine 1.6 mg/dL (0.6-1.2) H 06/17/20 08:34 Estimated GFR 37 ml/min 06/17/20 08:34 BUN/Creatinine Ratio 22 % 06/17/20 08:34 Glucose 112 mg/dL (65-100) H 06/17/20 08:34 POC Glucose 84 mg/dL (70-105) 06/15/20 07:11 Calcium 9.0 mg/dL (8.4-10.2) 06/17/20 08:34 Total Bilirubin 0.50 mg/dL (0.1-1.2) 06/17/20 08:34 AST 13 units/L (5-40) 06/17/20 08:34 ALT < 5 units/L (7-56) L 06/17/20 08:34 Alkaline Phosphatase 64 units/L (35-129) 06/17/20 08:34 Troponin T < 0.010 ng/mL (0.00-0.029) 06/13/20 11:38 Total Protein 6.5 g/dL (6.3-8.2) 06/17/20 08:34 Albumin 3.8 g/dL (3.9-5) L 06/17/20 08:34 Albumin/Globulin Ratio 1.4 % 06/17/20 08:34 Triglycerides 186 mg/dL (2-149) H 06/14/20 05:44 Cholesterol 208 mg/dL (50-199) H 06/14/20 05:44 LDL Cholesterol Direct 131 mg/dL (50-130) H 06/14/20 05:44 HDL Cholesterol 37 mg/dL (40-59) L 06/14/20 05:44 Cholesterol/HDL Ratio 5.62 % 06/14/20 05:44 Urine Color Yellow (Yellow) 06/13/20 12:02 Urine Turbidity Clear (Clear) 06/13/20 12:02 Urine pH 6.0 (5.0-7.0) 06/13/20 12:02 Ur Specific [place] 1.018 (1.003-1.030) 06/13/20 12:02 Urine Protein 30 mg/dl mg/dL (Negative) 06/13/20 12:02 Urine Glucose (UA) Neg mg/dL (Negative) 06/13/20 12:02 Urine Ketones Neg mg/dL (Negative) 06/13/20 12:02 Urine Blood Neg (Negative) 06/13/20 12:02 Urine Nitrite Neg (Negative) 06/13/20 12:02 Urine Bilirubin Neg (Negative) 06/13/20 12:02 Urine Urobilinogen < 2.0 mg/dL (<2.0) 06/13/20 12:02 Ur Leukocyte Esterase Neg (Negative) 06/13/20 12:02 Urine WBC (Auto) 2.0 /HPF (0.0-6.0) 06/13/20 12:02 Urine RBC (Auto) 1.0 /HPF (0.0-6.0) 06/13/20 12:02 U Epithel Cells (Auto) 4.0 /HPF (0-13.0) 06/13/20 12:02 Urine Mucus Few /HPF 06/13/20 12:02 Coronavirus (PCR) Negative (Negative) 06/17/20 09:52 Richards/IV: Voiding Method External Female Catheter IV Catheter Type [Right INT / Saline Lock Antecubital] Active Medications - Current Medications Current Medications: Generic Name Dose Route Start Last Admin Trade Name Freq PRN Reason Stop Dose Admin Acetaminophen 650 mg 06/13/20 12:38 Acetaminophen 325 Mg Tab PO Q4H PRN Pain, Mild (1-3) Amlodipine Besylate 5 mg 06/16/20 11:00 06/18/20 09:58 Amlodipine 5 Mg Tab PO 5 mg QDAY COLETTE Administration Aspirin 325 mg 06/14/20 10:00 06/18/20 09:58 Aspirin 325 Mg Tab PO 325 mg QDAY COLETTE Administration Atorvastatin Calcium 40 mg 06/13/20 22:00 06/17/20 21:53 Atorvastatin 40 Mg Tab PO 40 mg QHS COLETTE Administration Bisacodyl 10 mg 06/13/20 12:38 Bisacodyl 10 Mg Rect Supp UT QDAY PRN Constipation Hydralazine HCl 10 mg 06/14/20 11:00 06/15/20 09:38 Hydralazine 20 Mg/1 Ml Inj IV 10 mg Q4HR PRN Administration Hypertension Hydrochlorothiazide 25 mg 06/14/20 11:00 06/18/20 09:58 Hydrochlorothiazide 25 Mg Tab PO 25 mg QDAY COLETTE Administration Magnesium Hydroxide 30 ml 06/13/20 12:38 Magnesium Hydroxide (Mom) Oral Liqd Udc PO Q4H PRN Constipation Metoclopramide HCl 10 mg 06/13/20 12:38 Metoclopramide 10 Mg Tab PO Q6H PRN Nausea And Vomiting Ondansetron HCl 4 mg 06/13/20 12:38 Ondansetron 4 Mg/2 Ml Inj IV Q8H PRN Nausea And Vomiting Promethazine HCl 25 mg 06/13/20 12:38 Promethazine 25 Mg Rect Supp UT Q6H PRN Nausea And Vomiting Sodium Chloride 10 ml 06/13/20 12:38 06/15/20 09:38 Sodium Chloride 0.9% 10 Ml Flush Syringe IV 10 ml PRN PRN Administration LINE FLUSH
[2020-06-18] MEDS ORDERED: POTASSIUM CHLORIDE ER 20 MEQ TAB PO NR (19:22)
[2020-06-19 06:41] LABS: Calcium 8.7 mg/dL (8.4-10.2)
[2020-06-19] MEDS: ASPIRIN 325 MG TAB PO SCH (09:44)
[2020-06-19] MEDS: amLODIPine 5 MG TAB PO SCH (09:44)
[2020-06-19] MEDS: hydroCHLOROthiazide 25 MG TAB PO SCH (09:44)
--- NOTE | 2020-06-19 17:22 | Progress Note ---
Assessment and Plan Assessment and plan: -- Acute CVA (cerebrovascular accident) Current Visit: Yes Status: Acute Plan to address problem: Not a candidate for TPA CVA protocol: CT head, echocardiogram, carotid Doppler, physical therapy consulted, speech therapy consulted, Occupational Therapy consulted, antiplatelet therapy, neuro check, seizure precaution, aspiration precautions, fall precautions, teleneurology consulted in ED. Lipid panel, statin therapy. -- Right hemiparesis Current Visit: Yes Status: Acute Plan to address problem: Physical therapy , Occupational Therapy Rehabilitation follow recommendations DC planning per case management --Acute kidney injury; vasomotor nephropathy Current Visit: Yes Status: Acute Plan to address problem: gentle hydration. Monitor renal function Avoid nephrotoxins, nephrology consult if needed -- Hypertension; moderate control Current Visit: Yes Status: Acute Plan to address problem: Continue current antihypertensives As needed medications Permissive hypertension per stroke protocol --Pituitary mass Current Visit: Yes Status: Acute Plan to address problem: Neurology consulted, further care and evaluation as per neurology team. --Dysarthria Current Visit: No Status: Acute Plan to address problem: Speech therapy evaluation and management --DVT prophylaxis Current Visit: Yes Status: Acute Plan to address problem: SCD to bilateral lower extremities while in bed, prophylactic anticoagulation --Advance care planning Current Visit: Yes Status: Acute Plan to address problem: Disease education conducted, patient is full code, prognosis discussed, care plan discussed, patient daughter acknowledges understanding and agreement with care plan, +30 minutes. Discharge planning per case management PT and OT recommend subacute rehab vs home with HHS Possible discharge tomorrow if stable History Interval history: I have seen and examined the patient at the bedside Patient's chart and medications reviewed. Patient with acute CVA with right sided weakness Feels slightly better receiving therapy No new complaints Vital signs noted Hospitalist Physical - Constitutional Vitals: Temp Pulse Resp BP Pulse Ox 98.1 F 95 H 20 120/61 93 06/19/20 08:26 06/19/20 08:26 06/19/20 08:26 06/19/20 08:26 06/19/20 08:26 General appearance: Present: no acute distress, well-nourished - EENT Eyes: Present: PERRL, EOM intact - Neck Neck: Present: supple, normal ROM - Respiratory Respiratory effort: normal Respiratory: bilateral: diminished, negative: rales, rhonchi, wheezing - Cardiovascular Rhythm: regular Heart Sounds: Present: S1 & S2 - Extremities Extremities: no ischemia, No edema - Abdominal General gastrointestinal: soft, non-tender, non-distended, normal bowel sounds - Integumentary Integumentary: Present: clear, warm - Psychiatric Psychiatric: appropriate mood/affect, cooperative - Neurologic Neurologic: other (Right-sided weakness) HEART Score - HEART Score Troponin: Troponin T < 0.010 ng/mL (0.00-0.029) 06/13/20 11:38 Results - Labs CBC & Chem 7: 06/13/20 11:38 06/19/20 05:36 Labs: Laboratory Last Values WBC 8.6 K/mm3 (4.5-11.0) 06/13/20 11:38 RBC 4.71 M/mm3 (3.65-5.03) 06/13/20 11:38 Hgb 12.5 gm/dl (10.1-14.3) 06/13/20 11:38 Hct 38.5 % (30.3-42.9) 06/13/20 11:38 MCV 82 fl (79-97) 06/13/20 11:38 MCH 27 pg (28-32) L 06/13/20 11:38 MCHC 32 % (30-34) 06/13/20 11:38 RDW 17.3 % (13.2-15.2) H 06/13/20 11:38 Plt Count 206 K/mm3 (140-440) 06/13/20 11:38 Lymph % (Auto) 19.2 % (13.4-35.0) 06/13/20 11:38 [place] % (Auto) 5.3 % (0.0-7.3) 06/13/20 11:38 Eos % (Auto) 1.3 % (0.0-4.3) 06/13/20 11:38 Baso % (Auto) 0.8 % (0.0-1.8) 06/13/20 11:38 Lymph # (Auto) 1.6 K/mm3 (1.2-5.4) 06/13/20 11:38 [place] # (Auto) 0.5 K/mm3 (0.0-0.8) 06/13/20 11:38 Eos # (Auto) 0.1 K/mm3 (0.0-0.4) 06/13/20 11:38 Baso # (Auto) 0.1 K/mm3 (0.0-0.1) 06/13/20 11:38 Seg Neutrophils % 73.4 % (40.0-70.0) H 06/13/20 11:38 Seg Neutrophils # 6.3 K/mm3 (1.8-7.7) 06/13/20 11:38 PT 13.1 Sec. (12.2-14.9) 06/13/20 11:38 INR 1.00 (0.87-1.13) 06/13/20 11:38 APTT 26.1 Sec. (24.2-36.6) 06/13/20 11:38 Sodium 143 mmol/L (137-145) 06/19/20 05:36 Potassium 3.6 mmol/L (3.6-5.0) 06/19/20 05:36 Chloride 103.3 mmol/L (98-107) 06/19/20 05:36 Carbon Dioxide 22 mmol/L (22-30) 06/19/20 05:36 Anion Gap 21 mmol/L 06/19/20 05:36 BUN 64 mg/dL (7-17) H 06/19/20 05:36 Creatinine 2.0 mg/dL (0.6-1.2) H 06/19/20 05:36 Estimated GFR 29 ml/min 06/19/20 05:36 BUN/Creatinine Ratio 32 % 06/19/20 05:36 Glucose 93 mg/dL (65-100) 06/19/20 05:36 POC Glucose 84 mg/dL (70-105) 06/15/20 07:11 Calcium 8.7 mg/dL (8.4-10.2) 06/19/20 05:36 Magnesium 2.90 mg/dL (1.7-2.3) H 06/19/20 05:36 Total Bilirubin 0.50 mg/dL (0.1-1.2) 06/17/20 08:34 AST 13 units/L (5-40) 06/17/20 08:34 ALT < 5 units/L (7-56) L 06/17/20 08:34 Alkaline Phosphatase 64 units/L (35-129) 06/17/20 08:34 Troponin T < 0.010 ng/mL (0.00-0.029) 06/13/20 11:38 Total Protein 6.5 g/dL (6.3-8.2) 06/17/20 08:34 Albumin 3.8 g/dL (3.9-5) L 06/17/20 08:34 Albumin/Globulin Ratio 1.4 % 06/17/20 08:34 Triglycerides 186 mg/dL (2-149) H 06/14/20 05:44 Cholesterol 208 mg/dL (50-199) H 06/14/20 05:44 LDL Cholesterol Direct 131 mg/dL (50-130) H 06/14/20 05:44 HDL Cholesterol 37 mg/dL (40-59) L 06/14/20 05:44 Cholesterol/HDL Ratio 5.62 % 06/14/20 05:44 Urine Color Yellow (Yellow) 06/13/20 12:02 Urine Turbidity Clear (Clear) 06/13/20 12:02 Urine pH 6.0 (5.0-7.0) 06/13/20 12:02 Ur Specific [place] 1.018 (1.003-1.030) 06/13/20 12:02 Urine Protein 30 mg/dl mg/dL (Negative) 06/13/20 12:02 Urine Glucose (UA) Neg mg/dL (Negative) 06/13/20 12:02 Urine Ketones Neg mg/dL (Negative) 06/13/20 12:02 Urine Blood Neg (Negative) 06/13/20 12:02 Urine Nitrite Neg (Negative) 06/13/20 12:02 Urine Bilirubin Neg (Negative) 06/13/20 12:02 Urine Urobilinogen < 2.0 mg/dL (<2.0) 06/13/20 12:02 Ur Leukocyte Esterase Neg (Negative) 06/13/20 12:02 Urine WBC (Auto) 2.0 /HPF (0.0-6.0) 06/13/20 12:02 Urine RBC (Auto) 1.0 /HPF (0.0-6.0) 06/13/20 12:02 U Epithel Cells (Auto) 4.0 /HPF (0-13.0) 06/13/20 12:02 Urine Mucus Few /HPF 06/13/20 12:02 Coronavirus (PCR) Negative (Negative) 06/17/20 09:52 Richards/IV: Voiding Method Incontinent IV Catheter Type [Right INT / Saline Lock Antecubital] Active Medications - Current Medications Current Medications: Generic Name Dose Route Start Last Admin Trade Name Freq PRN Reason Stop Dose Admin Acetaminophen 650 mg 06/13/20 12:38 Acetaminophen 325 Mg Tab PO Q4H PRN Pain, Mild (1-3) Amlodipine Besylate 5 mg 06/16/20 11:00 06/19/20 09:44 Amlodipine 5 Mg Tab PO 5 mg QDAY COLETTE Administration Aspirin 325 mg 06/14/20 10:00 06/19/20 09:44 Aspirin 325 Mg Tab PO 325 mg QDAY COLETTE Administration Atorvastatin Calcium 40 mg 06/13/20 22:00 06/18/20 21:22 Atorvastatin 40 Mg Tab PO 40 mg QHS COLETTE Administration Bisacodyl 10 mg 06/13/20 12:38 Bisacodyl 10 Mg Rect Supp SD QDAY PRN Constipation Hydralazine HCl 10 mg 06/14/20 11:00 06/15/20 09:38 Hydralazine 20 Mg/1 Ml Inj IV 10 mg Q4HR PRN Administration Hypertension Hydrochlorothiazide 25 mg 06/14/20 11:00 06/19/20 09:44 Hydrochlorothiazide 25 Mg Tab PO 25 mg QDAY COLETTE Administration Magnesium Hydroxide 30 ml 06/13/20 12:38 Magnesium Hydroxide (Mom) Oral Liqd Udc PO Q4H PRN Constipation Metoclopramide HCl 10 mg 06/13/20 12:38 Metoclopramide 10 Mg Tab PO Q6H PRN Nausea And Vomiting Ondansetron HCl 4 mg 06/13/20 12:38 Ondansetron 4 Mg/2 Ml Inj IV Q8H PRN Nausea And Vomiting Promethazine HCl 25 mg 06/13/20 12:38 Promethazine 25 Mg Rect Supp SD Q6H PRN Nausea And Vomiting Sodium Chloride 10 ml 06/13/20 12:38 06/15/20 09:38 Sodium Chloride 0.9% 10 Ml Flush Syringe IV 10 ml PRN PRN Administration LINE FLUSH
--- NOTE | 2020-06-20 07:53 | Discharge Summary ---
Providers - Providers Date of Admission: 06/15/20 13:15 Date of discharge: 06/25/20 Attending physician: CARMENCITA FORBES 06/13/20 12:39 Occupational Therapy Evaluate and Treat [CONS] Routine Comment: Reason For Exam: Neuro deficits Physical Therapy Evaluation and Treat [CONS] Routine Comment: Reason For Exam: Neuro deficits 06/13/20 14:00 Consult to Physician [CONS] Routine Comment: Consulting Provider: GERMAIN MOTT Physician Instructions: Reason For Exam: CVA 06/13/20 14:39 Speech Therapy Evaluation and Treat [CONS] Routine Reason For Exam: CVA Hospitalization Reason for admission: Dysarthria and right-sided weakness Condition: Stable Pertinent studies: CT head without contrast MRI brain without contrast MRA head MRA neck Carotid Doppler Hospital course: 80 YO Female with HTN, 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 Patient is confused, dysarthric at the time of my evaluation and is unable to provide history.As per daughter, the patient has experienced increased weakness and unsteady gait over the past 3 days prior to admission with persistently worsening symptoms over the past 1 day. Patient daughter reports that patient has experienced increased difficulty with ambulation due to right-sided weakness as well as increased difficulty with speaking. Patient was not a candidate for TPA Evaluated by telemetry neurologist admitted to the hospital had extensive neuro work-up which is consistent with acute left CVA with right hemiparesis Managed with aspirin and statin, physical therapy occupational therapy and rehabilitation Patient also had acute kidney injury, renal function significantly improved with appropriate management PT OT evaluated and recommended home health services Today patient is comfortable no new complaints vital signs stable Physical examination no new changes Patient is hemodynamically and clinically stable for discharge with home health services Discharge diagnosis; -- Acute CVA (cerebrovascular accident) Current Visit: Yes Status: Acute Plan to address problem: Not a candidate for TPA Aspirin and statin Managed per stroke protocol Had extensive neuro work-up consistent with acute CVA PT OT evaluated the patient recommend home health Telemetry neurologist evaluated -- Right hemiparesis Current Visit: Yes Status: Acute Plan to address problem: Physical therapy , Occupational Therapy Rehabilitation follow recommendations DC planning per case management --Acute kidney injury; vasomotor nephropathy Current Visit: Yes Status: Acute Plan to address problem: gentle hydration. Monitor renal function Avoid nephrotoxins, nephrology consult if needed -- Hypertension; moderate control Current Visit: Yes Status: Acute Plan to address problem: Continue current antihypertensives As needed medications Permissive hypertension per stroke protocol --Pituitary mass Current Visit: Yes Status: Acute Plan to address problem: Neurology consulted, further care and evaluation as per neurology team. --Dysarthria Current Visit: No Status: Acute Plan to address problem: Speech therapy evaluation and management --DVT prophylaxis Current Visit: Yes Status: Acute Plan to address problem: SCD to bilateral lower extremities Disposition: [id number] HOME UNDER HOME HL Time spent for discharge: 35 min Core Measure Documentation - Palliative Care Palliative Care/ Comfort Measures: Not Applicable - Core Measures Any of the following diagnoses?: stroke - Stroke Discharge Requirements Statin for LDL = or >70 mg/dl on DC: Yes Exam - Constitutional Vitals: Temp Pulse Resp BP Pulse Ox 98.4 F 95 H 20 147/77 95 06/20/20 03:39 06/20/20 03:39 06/20/20 03:39 06/20/20 03:39 06/20/20 03:39 General appearance: Present: no acute distress, well-nourished - EENT Eyes: Present: PERRL, EOM intact - Neck Neck: Present: supple, normal ROM - Respiratory Respiratory effort: normal Respiratory: bilateral: diminished, negative: rales, rhonchi, wheezing - Cardiovascular Rhythm: regular Heart Sounds: Present: S1 & S2 - Extremities Extremities: no ischemia, No edema - Abdominal General gastrointestinal: Present: soft, non-tender, non-distended, normal bowel sounds - Integumentary Integumentary: Present: clear, warm - Musculoskeletal Musculoskeletal: right sided weakness, generalized weakness - Psychiatric Psychiatric: appropriate mood/affect, cooperative - Neurologic Neurologic: other (Acute CVA right hemiparesis) Plan Activity: advance as tolerated, fall precautions Diet: other (cardiac diet) Special Instructions: physical therapy, occupational therapy Additional Instructions: Fall precautions. Aspiration precautions. If you have worsening symptoms contact MD or go to emergency room. Advised to see private neurologist in 1 to 2 weeks. Advised to see private MD in 3 to 5 days Plan of Treatment: Home health with [facility] at home [phone] Follow up with: ROMI PADILLA [Other] - 7 Days CUATE MILLER MD [Staff Physician] - 7 Days Prescriptions: amLODIPine 5 mg PO QDAY #30 tablet Aspirin 81 mg PO DAILY #30 bisacodyL [Dulcolax suppos] 10 mg ND QDAY PRN #20 supp.rect PRN Reason: Constipation hydroCHLOROthiazide [HCTZ] 25 mg PO QDAY #30 tablet AtorvaSTATin [Lipitor] 40 mg PO QHS #30 tablet Ondansetron [Zofran Odt] 4 mg PO Q8HR PRN #20 tab.rapdis PRN Reason: Nausea And Vomiting
[2020-06-20] MEDS: amLODIPine 5 MG TAB PO SCH (09:34)
[2020-06-20] MEDS: hydroCHLOROthiazide 25 MG TAB PO SCH (09:34)
[2020-06-20] MEDS: ASPIRIN 325 MG TAB PO SCH (09:34)
--- NOTE | 2020-06-20 18:39 | Progress Note ---
Assessment and Plan Assessment and plan: -- Acute CVA (cerebrovascular accident) Current Visit: Yes Status: Acute Plan to address problem: Not a candidate for TPA CVA protocol: CT head, echocardiogram, carotid Doppler, physical therapy consulted, speech therapy consulted, Occupational Therapy consulted, antiplatelet therapy, neuro check, seizure precaution, aspiration precautions, fall precautions, teleneurology consulted in ED. Lipid panel, statin therapy. -- Right hemiparesis Current Visit: Yes Status: Acute Plan to address problem: Physical therapy , Occupational Therapy Rehabilitation follow recommendations DC planning per case management --Acute kidney injury; vasomotor nephropathy Current Visit: Yes Status: Acute Plan to address problem: gentle hydration. Monitor renal function Avoid nephrotoxins, nephrology consult if needed -- Hypertension; moderate control Current Visit: Yes Status: Acute Plan to address problem: Continue current antihypertensives As needed medications Permissive hypertension per stroke protocol --Pituitary mass Current Visit: Yes Status: Acute Plan to address problem: Neurology consulted, further care and evaluation as per neurology team. --Dysarthria Current Visit: No Status: Acute Plan to address problem: Speech therapy evaluation and management --DVT prophylaxis Current Visit: Yes Status: Acute Plan to address problem: SCD to bilateral lower extremities while in bed, prophylactic anticoagulation --Advance care planning Current Visit: Yes Status: Acute Plan to address problem: Disease education conducted, patient is full code, prognosis discussed, care plan discussed, patient daughter acknowledges understanding and agreement with care plan, +30 minutes. Discharge planning per case management PT and OT recommend subacute rehab vs home with HHS Possible discharge tomorrow if stable History Interval history: Patient seen and examined Patient's chart and medications reviewed No new complaints Vital signs noted Hospitalist Physical - Constitutional Vitals: Temp Pulse Resp BP Pulse Ox 98.0 F 102 H 18 149/77 95 06/20/20 16:10 06/20/20 16:10 06/20/20 16:10 06/20/20 16:10 06/20/20 16:10 General appearance: Present: no acute distress, well-nourished - EENT Eyes: Present: PERRL, EOM intact - Neck Neck: Present: supple, normal ROM - Respiratory Respiratory effort: normal Respiratory: bilateral: diminished, negative: rales, rhonchi, wheezing - Cardiovascular Rhythm: regular Heart Sounds: Present: S1 & S2 - Extremities Extremities: no ischemia, No edema - Abdominal General gastrointestinal: soft, non-tender, non-distended, normal bowel sounds - Integumentary Integumentary: Present: clear, warm - Psychiatric Psychiatric: cooperative, other (Confused minimally communicative) - Neurologic Neurologic: moves all extremities (Acute CVA with right-sided hemiparesis) HEART Score - HEART Score Troponin: Troponin T < 0.010 ng/mL (0.00-0.029) 06/13/20 11:38 Results - Labs CBC & Chem 7: 06/13/20 11:38 06/19/20 05:36 Labs: Laboratory Last Values WBC 8.6 K/mm3 (4.5-11.0) 06/13/20 11:38 RBC 4.71 M/mm3 (3.65-5.03) 06/13/20 11:38 Hgb 12.5 gm/dl (10.1-14.3) 06/13/20 11:38 Hct 38.5 % (30.3-42.9) 06/13/20 11:38 MCV 82 fl (79-97) 06/13/20 11:38 MCH 27 pg (28-32) L 06/13/20 11:38 MCHC 32 % (30-34) 06/13/20 11:38 RDW 17.3 % (13.2-15.2) H 06/13/20 11:38 Plt Count 206 K/mm3 (140-440) 06/13/20 11:38 Lymph % (Auto) 19.2 % (13.4-35.0) 06/13/20 11:38 [place] % (Auto) 5.3 % (0.0-7.3) 06/13/20 11:38 Eos % (Auto) 1.3 % (0.0-4.3) 06/13/20 11:38 Baso % (Auto) 0.8 % (0.0-1.8) 06/13/20 11:38 Lymph # (Auto) 1.6 K/mm3 (1.2-5.4) 06/13/20 11:38 [place] # (Auto) 0.5 K/mm3 (0.0-0.8) 06/13/20 11:38 Eos # (Auto) 0.1 K/mm3 (0.0-0.4) 06/13/20 11:38 Baso # (Auto) 0.1 K/mm3 (0.0-0.1) 06/13/20 11:38 Seg Neutrophils % 73.4 % (40.0-70.0) H 06/13/20 11:38 Seg Neutrophils # 6.3 K/mm3 (1.8-7.7) 06/13/20 11:38 PT 13.1 Sec. (12.2-14.9) 06/13/20 11:38 INR 1.00 (0.87-1.13) 06/13/20 11:38 APTT 26.1 Sec. (24.2-36.6) 06/13/20 11:38 Sodium 143 mmol/L (137-145) 06/19/20 05:36 Potassium 3.6 mmol/L (3.6-5.0) 06/19/20 05:36 Chloride 103.3 mmol/L (98-107) 06/19/20 05:36 Carbon Dioxide 22 mmol/L (22-30) 06/19/20 05:36 Anion Gap 21 mmol/L 06/19/20 05:36 BUN 64 mg/dL (7-17) H 06/19/20 05:36 Creatinine 2.0 mg/dL (0.6-1.2) H 06/19/20 05:36 Estimated GFR 29 ml/min 06/19/20 05:36 BUN/Creatinine Ratio 32 % 06/19/20 05:36 Glucose 93 mg/dL (65-100) 06/19/20 05:36 POC Glucose 84 mg/dL (70-105) 06/15/20 07:11 Calcium 8.7 mg/dL (8.4-10.2) 06/19/20 05:36 Magnesium 2.90 mg/dL (1.7-2.3) H 06/19/20 05:36 Total Bilirubin 0.50 mg/dL (0.1-1.2) 06/17/20 08:34 AST 13 units/L (5-40) 06/17/20 08:34 ALT < 5 units/L (7-56) L 06/17/20 08:34 Alkaline Phosphatase 64 units/L (35-129) 06/17/20 08:34 Troponin T < 0.010 ng/mL (0.00-0.029) 06/13/20 11:38 Total Protein 6.5 g/dL (6.3-8.2) 06/17/20 08:34 Albumin 3.8 g/dL (3.9-5) L 06/17/20 08:34 Albumin/Globulin Ratio 1.4 % 06/17/20 08:34 Triglycerides 186 mg/dL (2-149) H 06/14/20 05:44 Cholesterol 208 mg/dL (50-199) H 06/14/20 05:44 LDL Cholesterol Direct 131 mg/dL (50-130) H 06/14/20 05:44 HDL Cholesterol 37 mg/dL (40-59) L 06/14/20 05:44 Cholesterol/HDL Ratio 5.62 % 06/14/20 05:44 Urine Color Yellow (Yellow) 06/13/20 12:02 Urine Turbidity Clear (Clear) 06/13/20 12:02 Urine pH 6.0 (5.0-7.0) 06/13/20 12:02 Ur Specific [place] 1.018 (1.003-1.030) 06/13/20 12:02 Urine Protein 30 mg/dl mg/dL (Negative) 06/13/20 12:02 Urine Glucose (UA) Neg mg/dL (Negative) 06/13/20 12:02 Urine Ketones Neg mg/dL (Negative) 06/13/20 12:02 Urine Blood Neg (Negative) 06/13/20 12:02 Urine Nitrite Neg (Negative) 06/13/20 12:02 Urine Bilirubin Neg (Negative) 06/13/20 12:02 Urine Urobilinogen < 2.0 mg/dL (<2.0) 06/13/20 12:02 Ur Leukocyte Esterase Neg (Negative) 06/13/20 12:02 Urine WBC (Auto) 2.0 /HPF (0.0-6.0) 06/13/20 12:02 Urine RBC (Auto) 1.0 /HPF (0.0-6.0) 06/13/20 12:02 U Epithel Cells (Auto) 4.0 /HPF (0-13.0) 06/13/20 12:02 Urine Mucus Few /HPF 06/13/20 12:02 Coronavirus (PCR) Negative (Negative) 06/17/20 09:52 - Diagnostic Impressions Diagnostic Impressions: Echocardiogram 06/20/20 08:17 Transthoracic Echocardiogram Indication: CVA BP: 150/81 HR: 98 Conclusions *Global left ventricular systolic function is normal. *The estimated ejection fraction is 65-70%. *Mild to moderate concentric left ventricular hypertrophy is observed. *There is trace of mitral regurgitation. *There is mild tricuspid regurgitation. *There is evidence of borderline pulmonary hypertension. *The right ventricular systolic pressure is calculated at 27 mmHg. *A patent foramen ovale is not demonstrated by agitated saline contrast. Findings Left Ventricle: The left ventricular chamber size is normal. Mild to moderate concentric left ventricular hypertrophy is observed. Global left ventricular systolic function is normal. The estimated ejection fraction is 65-70%. Left Atrium: The left atrial chamber size is normal. Right Ventricle: The right ventricle is slightly dilated. The right ventricular global systolic function is normal. Right Atrium: The right atrial cavity size is normal. A patent foramen ovale is not demonstrated by agitated saline contrast. Aortic Valve: The aortic valve is trileaflet. The aortic valve leaflets are moderately thickened. There is no evidence of aortic regurgitation. There is no evidence of aortic stenosis. Mitral Valve: The mitral valve leaflets are mildly thickened. There is trace of mitral regurgitation. There is no evidence of mitral stenosis. Tricuspid Valve: There is mild tricuspid regurgitation. The right ventricular systolic pressure is calculated at 27 mmHg. There is evidence of borderline pulmonary hypertension. Pulmonic Valve: There is trace pulmonic regurgitation. Pericardium: There is no pericardial effusion. Aorta: There is no dilatation of the aortic root. Venous: The inferior vena cava appears normal in size. Contrast: Intravenous agitated saline contrast was used to assess intracardiac shunting. Measurements Chambers 2D Name Value Normal Range IVSd (2D) 1.2 cm (0.6 - 1.1) LVPWd (2D) 1.31 cm (0.6 - 1.1) LVIDd (2D) 3.16 cm (3.7 - 5.6) LVIDs (2D) 2.11 cm (2 - 3.8) LV FS (2D) 33.13 % - EF Teichholz (2D) 63.16 % - Ao root diameter (2D) 2.9 cm (2 - 3.7) Volumes/Mass Name Value Normal Range LA ESV SP 4CH (A/L) 16.36 ml - LA ESV SP 2CH (A/L) 14.27 ml - LA ESV BP (A/L) 16.03 ml - LA ESV SP 4CH (MOD) 15.02 ml - LA ESV SP 2CH (MOD) 14.22 ml - Diastolic/Systolic Function Name Value Normal Range MV E-wave Vmax 0.48 m/sec - MV deceleration time 191.18 msec - MV A-wave Vmax 0.93 m/sec - MV E:A ratio 0.52 ratio - Aortic Valve Name Value Normal Range AV Vmax 1.81 m/sec - AV VTI 24.46 cm - AV peak gradient 13.06 mmHg - AV mean gradient 7.06 mmHg - LVOT diameter 2.04 cm - LVOT Vmax 1.57 m/sec - LVOT VTI 23.41 cm - LVOT peak gradient 9.87 mmHg - LVOT mean gradient 6.02 mmHg - SV LVOT 76.81 ml - DYLAN (continuity Vmax) 2.85 cm2 - DYLAN (continuity VTI) 3.14 cm2 - AR PHT 268.11 msec - AR peak gradient 12.81 mmHg - Tricuspid Valve Name Value Normal Range TR Vmax 2.5 m/sec - TR peak gradient 24 mmHg - RAP 3 mmHg - RVSP 27 mmHg - Pulmonic Valve/Qp:Qs Name Value Normal Range PV Vmax 0.89 m/sec - PV peak gradient 3.14 mmHg - IA end-diastolic Vmax 1.54 m/sec - PV acceleration time 53.28 msec - Richards/IV: Voiding Method Incontinent IV Catheter Type [Right INT / Saline Lock Antecubital] Active Medications - Current Medications Current Medications: Generic Name Dose Route Start Last Admin Trade Name Freq PRN Reason Stop Dose Admin Acetaminophen 650 mg 06/13/20 12:38 Acetaminophen 325 Mg Tab PO Q4H PRN Pain, Mild (1-3) Amlodipine Besylate 5 mg 06/16/20 11:00 06/20/20 09:34 Amlodipine 5 Mg Tab PO 5 mg QDAY COLETTE Administration Aspirin 325 mg 06/14/20 10:00 06/20/20 09:34 Aspirin 325 Mg Tab PO 325 mg QDAY COLETTE Administration Atorvastatin Calcium 40 mg 06/13/20 22:00 06/19/20 21:56 Atorvastatin 40 Mg Tab PO 40 mg QHS COLETTE Administration Bisacodyl 10 mg 06/13/20 12:38 Bisacodyl 10 Mg Rect Supp IA QDAY PRN Constipation Hydralazine HCl 10 mg 06/14/20 11:00 06/15/20 09:38 Hydralazine 20 Mg/1 Ml Inj IV 10 mg Q4HR PRN Administration Hypertension Hydrochlorothiazide 25 mg 06/14/20 11:00 06/20/20 09:34 Hydrochlorothiazide 25 Mg Tab PO 25 mg QDAY COLETTE Administration Magnesium Hydroxide 30 ml 06/13/20 12:38 Magnesium Hydroxide (Mom) Oral Liqd Udc PO Q4H PRN Constipation Metoclopramide HCl 10 mg 06/13/20 12:38 Metoclopramide 10 Mg Tab PO Q6H PRN Nausea And Vomiting Ondansetron HCl 4 mg 06/13/20 12:38 Ondansetron 4 Mg/2 Ml Inj IV Q8H PRN Nausea And Vomiting Promethazine HCl 25 mg 06/13/20 12:38 Promethazine 25 Mg Rect Supp IA Q6H PRN Nausea And Vomiting Sodium Chloride 10 ml 06/13/20 12:38 06/15/20 09:38 Sodium Chloride 0.9% 10 Ml Flush Syringe IV 10 ml PRN PRN Administration LINE FLUSH Nutrition/Malnutrition Assess - Dietary Evaluation Nutrition/Malnutrition Findings: Nutrition Notes Start: 06/20/20 10:20 Freq: Status: Active Protocol: Document 06/20/20 10:22 TOPHER (Rec: 06/20/20 10:45 TOPHER [email or web address]) Co-Sign 06/20/20 10:22 LP Nutrition Notes Need for Assessment generated from: LOS Initial or Follow up Assessment Current Diagnosis Acute Kidney Injury, Hypertension,Stroke Other Pertinent Diagnosis aphasia, R hemiparesis, pituitary mass, vascular dementia Current Diet Cardiac with chopped meats Labs/Tests 06/19 BUN 64 Cr 2.0 Mg 2.9 Pertinent Medications Reviewed Height 5 ft 4 in Weight 70.6 kg Usual Body Weight 69.8 kg [place] Body Weight (kg) 54.54 BMI 26.6 Weight Status Appropriate Subjective/Other Information Screened for LOS. Per chart, pt has poor appetite and eating 25% meals. Pt able to respond to questions by nodding yes or no. Pt willing to try ONS. UBW obtained from visit on 06/06/20. Burn Absent Trauma Absent Food Allergy No Current % PO Poor (25-49%) Minimum of two criteria No physical signs of malnutrition #1 Nutrition Diagnosis Inadequate oral intake Etiology poor appetite, aphasia, advanced age As Evidenced by Signs and Symptoms pt consuming 25% meals Is patient on ventilator? No Is Patient Ambulatory and/or Out of Bed No REE-([facility]-confined to bed) 1394.124 Calculation Used for Recommendations [facility] Additional Notes Pro: 70-85 g (1-1.2 g/kg) Fluid: 1 ml/kcal Nutrition Intervention Change Diet Order: Continue cardiac Add Supplement/Snack (indicate name/kcal Ensure Enlive TID /protein ) Provides kCal: 700 Provides Protein (gm) 40 Goal #1 Meet at least 70% energy and protein needs via PO/ONS intakes Anticipated Discharge Needs: Cardiac diet Follow-Up By: 06/24/20 Additional Comments F/U for PO/ONS intakes
--- NOTE | 2020-06-20 18:43 | Event Note ---
Date: 06/20/20 Patient was discharged today, as the patient was being taken downstairs to the ER to her right Patient became lethargic and noncommunicative, and the nurse brought her back to her room in the floor Advised to check and monitor vital signs, frequent neurochecks and stat CT head without contrast, Will closely monitor the patient and adjust the management as needed Plan of care reviewed with the patient's nurse
--- NOTE | 2020-06-21 09:21 | Cat Scan Report ---
CT HEAD WITHOUT CONTRAST INDICATION / CLINICAL INFORMATION: altered level of consciousness. TECHNIQUE: All CT scans at this location are performed using CT dose reduction for ALARA by means of automated e xposure control. COMPARISON: Head CT 06/13/2020 FINDINGS: HEMORRHAGE: No evidence of intracranial hemorrhage or extra-axial fluid collection. EXTRA-AXIAL SPACES: Cortical sulci and sylvian fissures are enlarged reflecting a degree of parenchym al volume loss which is within normal limits for the patient's age of 80 years. Basilar cisterns have an unremarkable appearance. VENTRICULAR SYSTEM: The third and lateral ventricles are enlarged reflecting presence of age related parenchymal volume loss. CEREBRAL PARENCHYMA: Periventricular and deep white matter lucency is observed. This is probably seco ndary to microvascular ischemic change. A region of decreased brain parenchymal attenuation is now de monstrated involving the head of caudate nucleus and anterior limb internal capsule and jacome radiat a on the left. This is associated with mild mass effect with slight deformity of the lateral aspect o f the frontal horn of the left lateral ventricle. This represents a subacute deep infarction. Enceph alomalacia in the medial aspect of the left occipital lobe reflects the presence of a remote left pos terior cerebral artery infarction. MIDLINE SHIFT OR HERNIATION: There is no significant mass effect. CEREBELLUM / BRAINSTEM: Brainstem has an unremarkable appearance. There is evidence of remote infarct ion along the posterior inferior margin of the right cerebellar hemisphere unchanged from prior study . Age related cerebellar atrophy is noted. MIDLINE STRUCTURES: A large (2.3 x 2.2 x 2.7 cm) mass arises from the sella turcica. This was describ ed on previous study. The mixed attenuation, well-circumscribed lesion extends into the suprasellar c istern compressing the optic chiasm and optic nerves. 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 Craniopharyngioma could be considered in the differential diagnosis. INTRACRANIAL VESSELS:Calcified atherosclerotic plaque is present along the course of the cavernous se gments of both internal carotid arteries. Similar findings are seen at the distal vertebral arteries. ORBITS: visualized portions of the orbits have an unremarkable appearance. SOFT TISSUES of HEAD: No significant abnormality. CALVARIUM: Evaluation of bone windows reveals no abnormalities. PARANASAL SINUSES / MASTOID AIR CELLS: Paranasal sinuses are free from inflammatory mucosal disease. Mastoid air cells are normally pneumatized. IMPRESSION: 1. Subacute deep infarction involving left head of caudate nucleus, anterior limb internal capsule an d adjacent jacome radiata. This is a new finding in comparison to previous study. 2. Large mass arising from the sella turcica unchanged from recent previous examination. Signer Name: Manfred Martinez MD Signed: 06/21/2020 9:17 AM Workstation Name: [id number]
[2020-06-21] MEDS: ASPIRIN 325 MG TAB PO SCH (09:38)
[2020-06-21] MEDS: hydroCHLOROthiazide 25 MG TAB PO SCH (09:38)
[2020-06-21] MEDS: amLODIPine 5 MG TAB PO SCH (09:38)
--- NOTE | 2020-06-21 12:12 | Progress Note ---
Assessment and Plan Assessment and plan: -Brief episode of metabolic encephalopathy/AMS yesterday CT head without contrast; new changes noted - Acute CVA (cerebrovascular accident) Current Visit: Yes Status: Acute Plan to address problem: Not a candidate for TPA CVA protocol: CT head, echocardiogram, carotid Doppler, physical therapy consulted, speech therapy consulted, Occupational Therapy consulted, antiplatelet therapy, neuro check, seizure precaution, aspiration precautions, fall precautions, teleneurology consulted in ED. Lipid panel, statin therapy. -- Right hemiparesis Current Visit: Yes Status: Acute Plan to address problem: Physical therapy , Occupational Therapy Rehabilitation follow recommendations DC planning per case management --Acute kidney injury; vasomotor nephropathy Current Visit: Yes Status: Acute Plan to address problem: gentle hydration. Monitor renal function Avoid nephrotoxins, nephrology consult if needed -- Hypertension; moderate control Current Visit: Yes Status: Acute Plan to address problem: Continue current antihypertensives As needed medications Permissive hypertension per stroke protocol --Pituitary mass Current Visit: Yes Status: Acute Plan to address problem: Neurology consulted, further care and evaluation as per neurology team. --Dysarthria Current Visit: No Status: Acute Plan to address problem: Speech therapy evaluation and management --DVT prophylaxis Current Visit: Yes Status: Acute Plan to address problem: SCD to bilateral lower extremities while in bed, prophylactic anticoagulation --Advance care planning Current Visit: Yes Status: Acute Plan to address problem: Disease education conducted, patient is full code, prognosis discussed, care plan discussed, patient daughter acknowledges understanding and agreement with care plan, +30 minutes. Discharge planning per case management PT and OT recommend subacute rehab vs home with HHS Possible discharge tomorrow if stable History Interval history: I have seen and examined the patient at the bedside Patient's chart and medications reviewed Patient is lethargic noncommunicative Not in acute distress Hospitalist Physical - Constitutional Vitals: Temp Pulse Resp BP Pulse Ox 97.6 F 100 H 20 150/82 95 06/21/20 07:56 06/21/20 07:56 06/21/20 06:35 06/21/20 07:56 06/21/20 07:56 General appearance: Present: no acute distress, well-nourished, other (Lethargic noncommunicative) - EENT Eyes: Present: PERRL, EOM intact - Neck Neck: Present: supple, normal ROM - Respiratory Respiratory effort: normal Respiratory: bilateral: diminished, negative: rales, rhonchi, wheezing - Cardiovascular Rhythm: regular Heart Sounds: Present: S1 & S2 - Extremities Extremities: no ischemia, No edema - Abdominal General gastrointestinal: soft, non-tender, non-distended, normal bowel sounds - Integumentary Integumentary: Present: clear, warm - Psychiatric Psychiatric: other (Noncommunicative) - Neurologic Neurologic: other (Noncommunicative) HEART Score - HEART Score Troponin: Troponin T < 0.010 ng/mL (0.00-0.029) 06/13/20 11:38 Results - Labs CBC & Chem 7: 06/13/20 11:38 06/19/20 05:36 Labs: Laboratory Last Values WBC 8.6 K/mm3 (4.5-11.0) 06/13/20 11:38 RBC 4.71 M/mm3 (3.65-5.03) 06/13/20 11:38 Hgb 12.5 gm/dl (10.1-14.3) 06/13/20 11:38 Hct 38.5 % (30.3-42.9) 06/13/20 11:38 MCV 82 fl (79-97) 06/13/20 11:38 MCH 27 pg (28-32) L 06/13/20 11:38 MCHC 32 % (30-34) 06/13/20 11:38 RDW 17.3 % (13.2-15.2) H 06/13/20 11:38 Plt Count 206 K/mm3 (140-440) 06/13/20 11:38 Lymph % (Auto) 19.2 % (13.4-35.0) 06/13/20 11:38 Mcminn % (Auto) 5.3 % (0.0-7.3) 06/13/20 11:38 Eos % (Auto) 1.3 % (0.0-4.3) 06/13/20 11:38 Baso % (Auto) 0.8 % (0.0-1.8) 06/13/20 11:38 Lymph # (Auto) 1.6 K/mm3 (1.2-5.4) 06/13/20 11:38 Mcminn # (Auto) 0.5 K/mm3 (0.0-0.8) 06/13/20 11:38 Eos # (Auto) 0.1 K/mm3 (0.0-0.4) 06/13/20 11:38 Baso # (Auto) 0.1 K/mm3 (0.0-0.1) 06/13/20 11:38 Seg Neutrophils % 73.4 % (40.0-70.0) H 06/13/20 11:38 Seg Neutrophils # 6.3 K/mm3 (1.8-7.7) 06/13/20 11:38 PT 13.1 Sec. (12.2-14.9) 06/13/20 11:38 INR 1.00 (0.87-1.13) 06/13/20 11:38 APTT 26.1 Sec. (24.2-36.6) 06/13/20 11:38 Sodium 143 mmol/L (137-145) 06/19/20 05:36 Potassium 3.6 mmol/L (3.6-5.0) 06/19/20 05:36 Chloride 103.3 mmol/L (98-107) 06/19/20 05:36 Carbon Dioxide 22 mmol/L (22-30) 06/19/20 05:36 Anion Gap 21 mmol/L 06/19/20 05:36 BUN 64 mg/dL (7-17) H 06/19/20 05:36 Creatinine 2.0 mg/dL (0.6-1.2) H 06/19/20 05:36 Estimated GFR 29 ml/min 06/19/20 05:36 BUN/Creatinine Ratio 32 % 06/19/20 05:36 Glucose 93 mg/dL (65-100) 06/19/20 05:36 POC Glucose 84 mg/dL (70-105) 06/15/20 07:11 Calcium 8.7 mg/dL (8.4-10.2) 06/19/20 05:36 Magnesium 2.90 mg/dL (1.7-2.3) H 06/19/20 05:36 Total Bilirubin 0.50 mg/dL (0.1-1.2) 06/17/20 08:34 AST 13 units/L (5-40) 06/17/20 08:34 ALT < 5 units/L (7-56) L 06/17/20 08:34 Alkaline Phosphatase 64 units/L (35-129) 06/17/20 08:34 Troponin T < 0.010 ng/mL (0.00-0.029) 06/13/20 11:38 Total Protein 6.5 g/dL (6.3-8.2) 06/17/20 08:34 Albumin 3.8 g/dL (3.9-5) L 06/17/20 08:34 Albumin/Globulin Ratio 1.4 % 06/17/20 08:34 Triglycerides 186 mg/dL (2-149) H 06/14/20 05:44 Cholesterol 208 mg/dL (50-199) H 06/14/20 05:44 LDL Cholesterol Direct 131 mg/dL (50-130) H 06/14/20 05:44 HDL Cholesterol 37 mg/dL (40-59) L 06/14/20 05:44 Cholesterol/HDL Ratio 5.62 % 06/14/20 05:44 Urine Color Yellow (Yellow) 06/13/20 12:02 Urine Turbidity Clear (Clear) 06/13/20 12:02 Urine pH 6.0 (5.0-7.0) 06/13/20 12:02 Ur Specific Doran 1.018 (1.003-1.030) 06/13/20 12:02 Urine Protein 30 mg/dl mg/dL (Negative) 06/13/20 12:02 Urine Glucose (UA) Neg mg/dL (Negative) 06/13/20 12:02 Urine Ketones Neg mg/dL (Negative) 06/13/20 12:02 Urine Blood Neg (Negative) 06/13/20 12:02 Urine Nitrite Neg (Negative) 06/13/20 12:02 Urine Bilirubin Neg (Negative) 06/13/20 12:02 Urine Urobilinogen < 2.0 mg/dL (<2.0) 06/13/20 12:02 Ur Leukocyte Esterase Neg (Negative) 06/13/20 12:02 Urine WBC (Auto) 2.0 /HPF (0.0-6.0) 06/13/20 12:02 Urine RBC (Auto) 1.0 /HPF (0.0-6.0) 06/13/20 12:02 U Epithel Cells (Auto) 4.0 /HPF (0-13.0) 06/13/20 12:02 Urine Mucus Few /HPF 06/13/20 12:02 Coronavirus (PCR) Negative (Negative) 06/17/20 09:52 - Diagnostic Impressions Diagnostic Impressions: Echocardiogram 06/20/20 08:17 Transthoracic Echocardiogram Indication: CVA BP: 150/81 HR: 98 Conclusions *Global left ventricular systolic function is normal. *The estimated ejection fraction is 65-70%. *Mild to moderate concentric left ventricular hypertrophy is observed. *There is trace of mitral regurgitation. *There is mild tricuspid regurgitation. *There is evidence of borderline pulmonary hypertension. *The right ventricular systolic pressure is calculated at 27 mmHg. *A patent foramen ovale is not demonstrated by agitated saline contrast. Findings Left Ventricle: The left ventricular chamber size is normal. Mild to moderate concentric left ventricular hypertrophy is observed. Global left ventricular systolic function is normal. The estimated ejection fraction is 65-70%. Left Atrium: The left atrial chamber size is normal. Right Ventricle: The right ventricle is slightly dilated. The right ventricular global systolic function is normal. Right Atrium: The right atrial cavity size is normal. A patent foramen ovale is not demonstrated by agitated saline contrast. Aortic Valve: The aortic valve is trileaflet. The aortic valve leaflets are moderately thickened. There is no evidence of aortic regurgitation. There is no evidence of aortic stenosis. Mitral Valve: The mitral valve leaflets are mildly thickened. There is trace of mitral regurgitation. There is no evidence of mitral stenosis. Tricuspid Valve: There is mild tricuspid regurgitation. The right ventricular systolic pressure is calculated at 27 mmHg. There is evidence of borderline pulmonary hypertension. Pulmonic Valve: There is trace pulmonic regurgitation. Pericardium: There is no pericardial effusion. Aorta: There is no dilatation of the aortic root. Venous: The inferior vena cava appears normal in size. Contrast: Intravenous agitated saline contrast was used to assess intracardiac shunting. Measurements Chambers 2D Name Value Normal Range IVSd (2D) 1.2 cm (0.6 - 1.1) LVPWd (2D) 1.31 cm (0.6 - 1.1) LVIDd (2D) 3.16 cm (3.7 - 5.6) LVIDs (2D) 2.11 cm (2 - 3.8) LV FS (2D) 33.13 % - EF Teichholz (2D) 63.16 % - Ao root diameter (2D) 2.9 cm (2 - 3.7) Volumes/Mass Name Value Normal Range LA ESV SP 4CH (A/L) 16.36 ml - LA ESV SP 2CH (A/L) 14.27 ml - LA ESV BP (A/L) 16.03 ml - LA ESV SP 4CH (MOD) 15.02 ml - LA ESV SP 2CH (MOD) 14.22 ml - Diastolic/Systolic Function Name Value Normal Range MV E-wave Vmax 0.48 m/sec - MV deceleration time 191.18 msec - MV A-wave Vmax 0.93 m/sec - MV E:A ratio 0.52 ratio - Aortic Valve Name Value Normal Range AV Vmax 1.81 m/sec - AV VTI 24.46 cm - AV peak gradient 13.06 mmHg - AV mean gradient 7.06 mmHg - LVOT diameter 2.04 cm - LVOT Vmax 1.57 m/sec - LVOT VTI 23.41 cm - LVOT peak gradient 9.87 mmHg - LVOT mean gradient 6.02 mmHg - SV LVOT 76.81 ml - DYLAN (continuity Vmax) 2.85 cm2 - DYLAN (continuity VTI) 3.14 cm2 - AR PHT 268.11 msec - AR peak gradient 12.81 mmHg - Tricuspid Valve Name Value Normal Range TR Vmax 2.5 m/sec - TR peak gradient 24 mmHg - RAP 3 mmHg - RVSP 27 mmHg - Pulmonic Valve/Qp:Qs Name Value Normal Range PV Vmax 0.89 m/sec - PV peak gradient 3.14 mmHg - CO end-diastolic Vmax 1.54 m/sec - PV acceleration time 53.28 msec - Richards/IV: Voiding Method External Female Catheter IV Catheter Type [Right INT / Saline Lock Antecubital] Active Medications - Current Medications Current Medications: Generic Name Dose Route Start Last Admin Trade Name Freq PRN Reason Stop Dose Admin Acetaminophen 650 mg 06/13/20 12:38 Acetaminophen 325 Mg Tab PO Q4H PRN Pain, Mild (1-3) Amlodipine Besylate 5 mg 06/16/20 11:00 06/21/20 09:38 Amlodipine 5 Mg Tab PO 5 mg QDAY COLETTE Administration Aspirin 325 mg 06/14/20 10:00 06/21/20 09:38 Aspirin 325 Mg Tab PO 325 mg QDAY COLETTE Administration Atorvastatin Calcium 40 mg 06/13/20 22:00 06/20/20 21:58 Atorvastatin 40 Mg Tab PO 40 mg QHS COLETTE Administration Bisacodyl 10 mg 06/13/20 12:38 Bisacodyl 10 Mg Rect Supp CO QDAY PRN Constipation Hydralazine HCl 10 mg 06/14/20 11:00 06/15/20 09:38 Hydralazine 20 Mg/1 Ml Inj IV 10 mg Q4HR PRN Administration Hypertension Hydrochlorothiazide 25 mg 06/14/20 11:00 06/21/20 09:38 Hydrochlorothiazide 25 Mg Tab PO 25 mg QDAY COLETTE Administration Magnesium Hydroxide 30 ml 06/13/20 12:38 Magnesium Hydroxide (Mom) Oral Liqd Udc PO Q4H PRN Constipation Metoclopramide HCl 10 mg 06/13/20 12:38 Metoclopramide 10 Mg Tab PO Q6H PRN Nausea And Vomiting Ondansetron HCl 4 mg 06/13/20 12:38 Ondansetron 4 Mg/2 Ml Inj IV Q8H PRN Nausea And Vomiting Promethazine HCl 25 mg 06/13/20 12:38 Promethazine 25 Mg Rect Supp CO Q6H PRN Nausea And Vomiting Sodium Chloride 10 ml 06/13/20 12:38 06/15/20 09:38 Sodium Chloride 0.9% 10 Ml Flush Syringe IV 10 ml PRN PRN Administration LINE FLUSH Nutrition/Malnutrition Assess - Dietary Evaluation Nutrition/Malnutrition Findings: Nutrition Notes Start: 06/20/20 10:20 Freq: Status: Active Protocol: Document 06/20/20 10:22 TOPHER (Rec: 06/20/20 10:45 TOPHER [id number]) Co-Sign 06/20/20 10:22 LP Nutrition Notes Need for Assessment generated from: LOS Initial or Follow up Assessment Current Diagnosis Acute Kidney Injury, Hypertension,Stroke Other Pertinent Diagnosis aphasia, R hemiparesis, pituitary mass, vascular dementia Current Diet Cardiac with chopped meats Labs/Tests 06/19 BUN 64 Cr 2.0 Mg 2.9 Pertinent Medications Reviewed Height 5 ft 4 in Weight 70.6 kg Usual Body Weight 69.8 kg [place] Body Weight (kg) 54.54 BMI 26.6 Weight Status Appropriate Subjective/Other Information Screened for LOS. Per chart, pt has poor appetite and eating 25% meals. Pt able to respond to questions by nodding yes or no. Pt willing to try ONS. UBW obtained from visit on 06/06/20. Burn Absent Trauma Absent Food Allergy No Current % PO Poor (25-49%) Minimum of two criteria No physical signs of malnutrition #1 Nutrition Diagnosis Inadequate oral intake Etiology poor appetite, aphasia, advanced age As Evidenced by Signs and Symptoms pt consuming 25% meals Is patient on ventilator? No Is Patient Ambulatory and/or Out of Bed No [facility] 1394.124 Calculation Used for Recommendations [facility] Additional Notes Pro: 70-85 g (1-1.2 g/kg) Fluid: 1 ml/kcal Nutrition Intervention Change Diet Order: Continue cardiac Add Supplement/Snack (indicate name/kcal Ensure Enlive TID /protein ) Provides kCal: 700 Provides Protein (gm) 40 Goal #1 Meet at least 70% energy and protein needs via PO/ONS intakes Anticipated Discharge Needs: Cardiac diet Follow-Up By: 06/24/20 Additional Comments F/U for PO/ONS intakes
[2020-06-22 09:45] LABS: Calcium 9.5 mg/dL (8.4-10.2)
[2020-06-22] MEDS: ASPIRIN 325 MG TAB PO SCH (11:19)
[2020-06-22] MEDS: amLODIPine 5 MG TAB PO SCH (11:19)
[2020-06-22] MEDS: hydroCHLOROthiazide 25 MG TAB PO SCH (11:19)
--- NOTE | 2020-06-22 14:02 | Progress Note ---
Subjective Date of service: 06/22/20 Interval history: Assessment and plan: -Brief episode of metabolic encephalopathy/AMS yesterday CT head without contrast; new changes noted Patient is awake aphasic, - Acute CVA (cerebrovascular accident) Current Visit: Yes Status: Acute Plan to address problem: Not a candidate for TPA CVA protocol: CT head, echocardiogram, carotid Doppler, physical therapy consulted, speech therapy consulted, Occupational Therapy consulted, antiplatelet therapy, neuro check, seizure precaution, aspiration precautions, fall precautions, teleneurology consulted in ED. Lipid panel, statin therapy. -- Right hemiparesis Current Visit: Yes Status: Acute Plan to address problem: Physical therapy , Occupational Therapy Rehabilitation follow recommendations DC planning per case management --Acute kidney injury; vasomotor nephropathy Current Visit: Yes Status: Acute Plan to address problem: gentle hydration. Monitor renal function Avoid nephrotoxins, nephrology consult if needed Acute kidney injury versus acute on chronic kidney disease Stat labs ordered this morning Results reviewed worsening renal function Mild hypokalemia Start patient on IV fluids Recheck fluids in a.m. -- Hypertension; moderate control Current Visit: Yes Status: Acute Plan to address problem: Continue current antihypertensives As needed medications Permissive hypertension per stroke protocol --Pituitary mass Current Visit: Yes Status: Acute Plan to address problem: Neurology consulted, further care and evaluation as per neurology team. --Dysarthria Current Visit: No Status: Acute Plan to address problem: Speech therapy evaluation and management --DVT prophylaxis Current Visit: Yes Status: Acute Plan to address problem: SCD to bilateral lower extremities while in bed, prophylactic anticoagulation Objective - Constitutional Vitals: Vital Signs - 12hr 06/22/20 06/22/20 06/22/20 04:16 08:01 11:15 Temperature 97.7 F 98.5 F Pulse Rate 101 H 102 H Respiratory 20 18 18 Rate Blood Pressure 132/69 129/73 Blood Pressure 134/64 [Left] O2 Sat by Pulse 95 95 Oximetry 06/22/20 11:19 Temperature Pulse Rate 102 H Respiratory Rate Blood Pressure Blood Pressure [Left] O2 Sat by Pulse Oximetry General appearance: Present: no acute distress - EENT Eyes: PERRL - Neck Neck: other (Moderately stiff in all directions) - Respiratory Respiratory effort: normal Respiratory: bilateral: CTA, diminished - Cardiovascular Rhythm: regular Extremities: No edema - Gastrointestinal Rectal Exam: deferred - Musculoskeletal Musculoskeletal: right sided weakness, other - Neurologic Neurologic: other (Aphasic) - Labs CBC & Chem 7: 06/13/20 11:38 06/22/20 08:32 Labs: Abnormal lab results 06/22/20 Range/Units 08:32 Sodium 150 H (137-145) mmol/L Potassium 3.3 L (3.6-5.0) mmol/L BUN 86 H (7-17) mg/dL Creatinine 2.3 H (0.6-1.2) mg/dL Glucose 116 H (65-100) mg/dL HEART Score - HEART Score Troponin: Troponin T < 0.010 ng/mL (0.00-0.029) 06/13/20 11:38
[2020-06-22] MEDS ORDERED: POTASSIUM CHLORIDE ER 20 MEQ TAB PO ONE ×2 (14:04→17:00)
[2020-06-22] MEDS: D5W/0.45% NACL 1,000 ML IV SCH (19:34)
[2020-06-23] MEDS: D5W/0.45% NACL 1,000 ML IV SCH ×2 (06:14→18:43)
[2020-06-23] MEDS: hydroCHLOROthiazide 25 MG TAB PO SCH (10:06)
[2020-06-23] MEDS: amLODIPine 5 MG TAB PO SCH (10:06)
[2020-06-23] MEDS: ASPIRIN 325 MG TAB PO SCH (10:07)
--- NOTE | 2020-06-23 19:35 | Progress Note ---
Assessment and Plan Assessment and plan: -- Acute left CVA (cerebrovascular accident) Current Visit: Yes Status: Acute Plan to address problem: Not a candidate for TPA CVA protocol: CT head, echocardiogram, carotid Doppler, physical therapy consulted, speech therapy consulted, Occupational Therapy consulted, antiplatelet therapy, neuro check, seizure precaution, aspiration precautions, fall precautions, teleneurology consulted in ED. Lipid panel, statin therapy. -- Right hemiparesis Current Visit: Yes Status: Acute Plan to address problem: Physical therapy , Occupational Therapy Rehabilitation follow recommendations DC planning per case management --Brief episode of metabolic encephalopathy/AMS[ 06/11/2020] CT head without contrast; new changes noted left side Patient has acute left CVA with right hemiparesis Continue supportive care --Acute kidney injury; vasomotor nephropathy Current Visit: Yes Status: Acute Plan to address problem: gentle hydration. Monitor renal function Avoid nephrotoxins, nephrology consult if needed -- Hypertension; moderate control Current Visit: Yes Status: Acute Plan to address problem: Continue current antihypertensives As needed medications Permissive hypertension per stroke protocol --Pituitary mass Current Visit: Yes Status: Acute Plan to address problem: Neurology consulted, further care and evaluation as per neurology team. --Dysarthria Current Visit: No Status: Acute Plan to address problem: Speech therapy evaluation and management --DVT prophylaxis Current Visit: Yes Status: Acute Plan to address problem: SCD to bilateral lower extremities while in bed, prophylactic anticoagulation --Advance care planning Current Visit: Yes Status: Acute Plan to address problem: Disease education conducted, patient is full code, prognosis discussed, care plan discussed, patient daughter acknowledges understanding and agreement with care plan, +30 minutes. Discharge planning per case management PT and OT recommend subacute rehab vs home with [facility] DC planning per case management Subacute rehab versus home with home health when stable History Interval history: I have seen and examined the patient at the bedside Patient is noncommunicative opening eyes upon calling her name No new events reported by the nursing staff, no acute symptoms Not in acute distress, Vital signs noted Hospitalist Physical - Constitutional Vitals: Temp Pulse Resp BP Pulse Ox 98.7 F 98 H 18 148/78 99 06/23/20 16:36 06/23/20 16:36 06/23/20 11:53 06/23/20 16:36 06/23/20 16:36 General appearance: Present: no acute distress, well-nourished, other (Noncommunicative) - EENT Eyes: Present: PERRL, EOM intact - Neck Neck: Present: supple, normal ROM - Respiratory Respiratory effort: normal Respiratory: bilateral: diminished, rhonchi, negative: rales, wheezing - Cardiovascular Rhythm: regular Heart Sounds: Present: S1 & S2 - Extremities Extremities: no ischemia, No edema - Abdominal General gastrointestinal: soft, non-tender, non-distended, normal bowel sounds - Integumentary Integumentary: Present: clear, warm - Psychiatric Psychiatric: other (Noncommunicative, confused) - Neurologic Neurologic: other (CVA with right hemiparesis) HEART Score - HEART Score Troponin: Troponin T < 0.010 ng/mL (0.00-0.029) 06/13/20 11:38 Results - Labs CBC & Chem 7: 06/13/20 11:38 06/23/20 05:05 Labs: Laboratory Last Values WBC 8.6 K/mm3 (4.5-11.0) 06/13/20 11:38 RBC 4.71 M/mm3 (3.65-5.03) 06/13/20 11:38 Hgb 12.5 gm/dl (10.1-14.3) 06/13/20 11:38 Hct 38.5 % (30.3-42.9) 06/13/20 11:38 MCV 82 fl (79-97) 06/13/20 11:38 MCH 27 pg (28-32) L 06/13/20 11:38 MCHC 32 % (30-34) 06/13/20 11:38 RDW 17.3 % (13.2-15.2) H 06/13/20 11:38 Plt Count 206 K/mm3 (140-440) 06/13/20 11:38 Lymph % (Auto) 19.2 % (13.4-35.0) 06/13/20 11:38 [place] % (Auto) 5.3 % (0.0-7.3) 06/13/20 11:38 Eos % (Auto) 1.3 % (0.0-4.3) 06/13/20 11:38 Baso % (Auto) 0.8 % (0.0-1.8) 06/13/20 11:38 Lymph # (Auto) 1.6 K/mm3 (1.2-5.4) 06/13/20 11:38 [place] # (Auto) 0.5 K/mm3 (0.0-0.8) 06/13/20 11:38 Eos # (Auto) 0.1 K/mm3 (0.0-0.4) 06/13/20 11:38 Baso # (Auto) 0.1 K/mm3 (0.0-0.1) 06/13/20 11:38 Seg Neutrophils % 73.4 % (40.0-70.0) H 06/13/20 11:38 Seg Neutrophils # 6.3 K/mm3 (1.8-7.7) 06/13/20 11:38 PT 13.1 Sec. (12.2-14.9) 06/13/20 11:38 INR 1.00 (0.87-1.13) 06/13/20 11:38 APTT 26.1 Sec. (24.2-36.6) 06/13/20 11:38 Sodium 152 mmol/L (137-145) H 06/23/20 05:05 Potassium 3.6 mmol/L (3.6-5.0) 06/23/20 05:05 Chloride 111.0 mmol/L (98-107) H 06/23/20 05:05 Carbon Dioxide 25 mmol/L (22-30) 06/23/20 05:05 Anion Gap 20 mmol/L 06/23/20 05:05 BUN 93 mg/dL (7-17) H 06/23/20 05:05 Creatinine 2.3 mg/dL (0.6-1.2) H 06/23/20 05:05 Estimated GFR 25 ml/min 06/23/20 05:05 BUN/Creatinine Ratio 40 % 06/23/20 05:05 Glucose 115 mg/dL (65-100) H 06/23/20 05:05 POC Glucose 118 mg/dL (70-105) H 06/23/20 16:34 Calcium 9.0 mg/dL (8.4-10.2) 06/23/20 05:05 Magnesium 2.90 mg/dL (1.7-2.3) H 06/19/20 05:36 Total Bilirubin 0.50 mg/dL (0.1-1.2) 06/17/20 08:34 AST 13 units/L (5-40) 06/17/20 08:34 ALT < 5 units/L (7-56) L 06/17/20 08:34 Alkaline Phosphatase 64 units/L (35-129) 06/17/20 08:34 Troponin T < 0.010 ng/mL (0.00-0.029) 06/13/20 11:38 Total Protein 6.5 g/dL (6.3-8.2) 06/17/20 08:34 Albumin 3.8 g/dL (3.9-5) L 06/17/20 08:34 Albumin/Globulin Ratio 1.4 % 06/17/20 08:34 Triglycerides 186 mg/dL (2-149) H 06/14/20 05:44 Cholesterol 208 mg/dL (50-199) H 06/14/20 05:44 LDL Cholesterol Direct 131 mg/dL (50-130) H 06/14/20 05:44 HDL Cholesterol 37 mg/dL (40-59) L 06/14/20 05:44 Cholesterol/HDL Ratio 5.62 % 06/14/20 05:44 Urine Color Yellow (Yellow) 06/13/20 12:02 Urine Turbidity Clear (Clear) 06/13/20 12:02 Urine pH 6.0 (5.0-7.0) 06/13/20 12:02 Ur Specific Rodney 1.018 (1.003-1.030) 06/13/20 12:02 Urine Protein 30 mg/dl mg/dL (Negative) 06/13/20 12:02 Urine Glucose (UA) Neg mg/dL (Negative) 06/13/20 12:02 Urine Ketones Neg mg/dL (Negative) 06/13/20 12:02 Urine Blood Neg (Negative) 06/13/20 12:02 Urine Nitrite Neg (Negative) 06/13/20 12:02 Urine Bilirubin Neg (Negative) 06/13/20 12:02 Urine Urobilinogen < 2.0 mg/dL (<2.0) 06/13/20 12:02 Ur Leukocyte Esterase Neg (Negative) 06/13/20 12:02 Urine WBC (Auto) 2.0 /HPF (0.0-6.0) 06/13/20 12:02 Urine RBC (Auto) 1.0 /HPF (0.0-6.0) 06/13/20 12:02 U Epithel Cells (Auto) 4.0 /HPF (0-13.0) 06/13/20 12:02 Urine Mucus Few /HPF 06/13/20 12:02 Coronavirus (PCR) Negative (Negative) 06/17/20 09:52 - Diagnostic Impressions Diagnostic Impressions: Echocardiogram 06/20/20 08:17 Transthoracic Echocardiogram Indication: CVA BP: 150/81 HR: 98 Conclusions *Global left ventricular systolic function is normal. *The estimated ejection fraction is 65-70%. *Mild to moderate concentric left ventricular hypertrophy is observed. *There is trace of mitral regurgitation. *There is mild tricuspid regurgitation. *There is evidence of borderline pulmonary hypertension. *The right ventricular systolic pressure is calculated at 27 mmHg. *A patent foramen ovale is not demonstrated by agitated saline contrast. Findings Left Ventricle: The left ventricular chamber size is normal. Mild to moderate concentric left ventricular hypertrophy is observed. Global left ventricular systolic function is normal. The estimated ejection fraction is 65-70%. Left Atrium: The left atrial chamber size is normal. Right Ventricle: The right ventricle is slightly dilated. The right ventricular global systolic function is normal. Right Atrium: The right atrial cavity size is normal. A patent foramen ovale is not demonstrated by agitated saline contrast. Aortic Valve: The aortic valve is trileaflet. The aortic valve leaflets are moderately thickened. There is no evidence of aortic regurgitation. There is no evidence of aortic stenosis. Mitral Valve: The mitral valve leaflets are mildly thickened. There is trace of mitral regurgitation. There is no evidence of mitral stenosis. Tricuspid Valve: There is mild tricuspid regurgitation. The right ventricular systolic pressure is calculated at 27 mmHg. There is evidence of borderline pulmonary hypertension. Pulmonic Valve: There is trace pulmonic regurgitation. Pericardium: There is no pericardial effusion. Aorta: There is no dilatation of the aortic root. Venous: The inferior vena cava appears normal in size. Contrast: Intravenous agitated saline contrast was used to assess intracardiac shunting. Measurements Chambers 2D Name Value Normal Range IVSd (2D) 1.2 cm (0.6 - 1.1) LVPWd (2D) 1.31 cm (0.6 - 1.1) LVIDd (2D) 3.16 cm (3.7 - 5.6) LVIDs (2D) 2.11 cm (2 - 3.8) LV FS (2D) 33.13 % - EF Teichholz (2D) 63.16 % - Ao root diameter (2D) 2.9 cm (2 - 3.7) Volumes/Mass Name Value Normal Range LA ESV SP 4CH (A/L) 16.36 ml - LA ESV SP 2CH (A/L) 14.27 ml - LA ESV BP (A/L) 16.03 ml - LA ESV SP 4CH (MOD) 15.02 ml - LA ESV SP 2CH (MOD) 14.22 ml - Diastolic/Systolic Function Name Value Normal Range MV E-wave Vmax 0.48 m/sec - MV deceleration time 191.18 msec - MV A-wave Vmax 0.93 m/sec - MV E:A ratio 0.52 ratio - Aortic Valve Name Value Normal Range AV Vmax 1.81 m/sec - AV VTI 24.46 cm - AV peak gradient 13.06 mmHg - AV mean gradient 7.06 mmHg - LVOT diameter 2.04 cm - LVOT Vmax 1.57 m/sec - LVOT VTI 23.41 cm - LVOT peak gradient 9.87 mmHg - LVOT mean gradient 6.02 mmHg - SV LVOT 76.81 ml - DYLAN (continuity Vmax) 2.85 cm2 - DYLAN (continuity VTI) 3.14 cm2 - AR PHT 268.11 msec - AR peak gradient 12.81 mmHg - Tricuspid Valve Name Value Normal Range TR Vmax 2.5 m/sec - TR peak gradient 24 mmHg - RAP 3 mmHg - RVSP 27 mmHg - Pulmonic Valve/Qp:Qs Name Value Normal Range PV Vmax 0.89 m/sec - PV peak gradient 3.14 mmHg - MD end-diastolic Vmax 1.54 m/sec - PV acceleration time 53.28 msec - Richards/IV: Voiding Method External Female Catheter IV Catheter Type [Right INT / Saline Lock Forearm] IV Catheter Type [Right INT / Saline Lock Antecubital] Active Medications - Current Medications Current Medications: Generic Name Dose Route Start Last Admin Trade Name Freq PRN Reason Stop Dose Admin Acetaminophen 650 mg 06/13/20 12:38 Acetaminophen 325 Mg Tab PO Q4H PRN Pain, Mild (1-3) Amlodipine Besylate 5 mg 06/16/20 11:00 06/23/20 10:06 Amlodipine 5 Mg Tab PO 5 mg QDAY COLETTE Administration Aspirin 325 mg 06/14/20 10:00 06/23/20 10:07 Aspirin 325 Mg Tab PO 325 mg QDAY COLETTE Administration Atorvastatin Calcium 40 mg 06/13/20 22:00 06/22/20 22:34 Atorvastatin 40 Mg Tab PO 40 mg QHS COLETTE Administration Bisacodyl 10 mg 06/13/20 12:38 Bisacodyl 10 Mg Rect Supp MD QDAY PRN Constipation Hydralazine HCl 10 mg 06/14/20 11:00 06/15/20 09:38 Hydralazine 20 Mg/1 Ml Inj IV 10 mg Q4HR PRN Administration Hypertension Hydrochlorothiazide 25 mg 06/14/20 11:00 06/23/20 10:06 Hydrochlorothiazide 25 Mg Tab PO 25 mg QDAY COLETTE Administration Dextrose/Sodium Chloride 1,000 mls @ 100 mls/hr 06/22/20 15:00 06/23/20 18:43 D5/0.45ns IV 100 mls/hr DIRECT COLETTE Administration Magnesium Hydroxide 30 ml 06/13/20 12:38 Magnesium Hydroxide (Mom) Oral Liqd Udc PO Q4H PRN Constipation Metoclopramide HCl 10 mg 06/13/20 12:38 Metoclopramide 10 Mg Tab PO Q6H PRN Nausea And Vomiting Ondansetron HCl 4 mg 06/13/20 12:38 Ondansetron 4 Mg/2 Ml Inj IV Q8H PRN Nausea And Vomiting Promethazine HCl 25 mg 06/13/20 12:38 Promethazine 25 Mg Rect Supp MD Q6H PRN Nausea And Vomiting Sodium Chloride 10 ml 06/13/20 12:38 06/22/20 22:34 Sodium Chloride 0.9% 10 Ml Flush Syringe IV 10 ml PRN PRN Administration LINE FLUSH Nutrition/Malnutrition Assess - Dietary Evaluation Nutrition/Malnutrition Findings: Nutrition Notes Start: 06/20/20 10:20 Freq: Status: Active Protocol: Document 06/20/20 10:22 TOPHER (Rec: 06/20/20 10:45 TOPHER [id number]) Co-Sign 06/20/20 10:22 LP Nutrition Notes Need for Assessment generated from: LOS Initial or Follow up Assessment Current Diagnosis Acute Kidney Injury, Hypertension,Stroke Other Pertinent Diagnosis aphasia, R hemiparesis, pituitary mass, vascular dementia Current Diet Cardiac with chopped meats Labs/Tests 06/19 BUN 64 Cr 2.0 Mg 2.9 Pertinent Medications Reviewed Height 5 ft 4 in Weight 70.6 kg Usual Body Weight 69.8 kg [place] Body Weight (kg) 54.54 BMI 26.6 Weight Status Appropriate Subjective/Other Information Screened for LOS. Per chart, pt has poor appetite and eating 25% meals. Pt able to respond to questions by nodding yes or no. Pt willing to try ONS. UBW obtained from visit on 06/06/20. Burn Absent Trauma Absent Food Allergy No Current % PO Poor (25-49%) Minimum of two criteria No physical signs of malnutrition #1 Nutrition Diagnosis Inadequate oral intake Etiology poor appetite, aphasia, advanced age As Evidenced by Signs and Symptoms pt consuming 25% meals Is patient on ventilator? No Is Patient Ambulatory and/or Out of Bed No REE-([facility]-confined to bed) 1394.124 Calculation Used for Recommendations [facility] Additional Notes Pro: 70-85 g (1-1.2 g/kg) Fluid: 1 ml/kcal Nutrition Intervention Change Diet Order: Continue cardiac Add Supplement/Snack (indicate name/kcal Ensure Enlive TID /protein ) Provides kCal: 700 Provides Protein (gm) 40 Goal #1 Meet at least 70% energy and protein needs via PO/ONS intakes Anticipated Discharge Needs: Cardiac diet Follow-Up By: 06/24/20 Additional Comments F/U for PO/ONS intakes
[2020-06-24] MEDS: DEXTROSE 5% IN WATER 1,000 ML IV SCH ×2 (06:30→21:54)
[2020-06-24 08:34] LABS: Calcium 8.8 mg/dL (8.4-10.2)
[2020-06-24] MEDS: amLODIPine 5 MG TAB PO SCH (10:45)
[2020-06-24] MEDS: ASPIRIN 325 MG TAB PO SCH (10:45)
[2020-06-24] MEDS: hydroCHLOROthiazide 25 MG TAB PO SCH (10:45)
[2020-06-25] MEDS: DEXTROSE 5% IN WATER 1,000 ML IV SCH ×2 (06:02→10:32)
[2020-06-25] MEDS: hydroCHLOROthiazide 25 MG TAB PO SCH (10:32)
[2020-06-25] MEDS: ASPIRIN 325 MG TAB PO SCH (10:32)
[2020-06-25] MEDS: amLODIPine 5 MG TAB PO SCH (10:32)
--- NOTE | 2020-06-25 11:18 | Discharge Summary ---
Providers - Providers Date of Admission: 06/15/20 13:15 Date of discharge: 06/25/20 Attending physician: CARMENCITA FORBES 06/13/20 12:39 Occupational Therapy Evaluate and Treat [CONS] Routine Comment: Reason For Exam: Neuro deficits Physical Therapy Evaluation and Treat [CONS] Routine Comment: Reason For Exam: Neuro deficits 06/13/20 14:00 Consult to Physician [CONS] Routine Comment: Consulting Provider: GERMAIN MOTT Physician Instructions: Reason For Exam: CVA 06/13/20 14:39 Speech Therapy Evaluation and Treat [CONS] Routine Reason For Exam: CVA Hospitalization Condition: Stable Disposition: DC/[place]-06 HOME UNDER HOME HL Time spent for discharge: 35 min Core Measure Documentation - Palliative Care Palliative Care/ Comfort Measures: Not Applicable Exam - Constitutional Vitals: Temp Pulse Resp BP Pulse Ox 98.8 F 90 17 114/60 98 06/25/20 03:35 06/25/20 03:35 06/25/20 03:35 06/25/20 03:35 06/25/20 03:35 Plan Plan of Treatment: Home health with [facility] at home [phone] Follow up with: ROMI PADILLA [Other] - 7 Days CUATE MILLER MD [Staff Physician] - 7 Days Prescriptions: amLODIPine 5 mg PO QDAY #30 tablet Aspirin 81 mg PO DAILY #30 bisacodyL [Dulcolax suppos] 10 mg MD QDAY PRN #20 supp.rect PRN Reason: Constipation hydroCHLOROthiazide [HCTZ] 25 mg PO QDAY #30 tablet AtorvaSTATin [Lipitor] 40 mg PO QHS #30 tablet
--- NOTE | 2020-06-25 11:30 | Progress Note ---
Assessment and Plan Assessment and plan: --Acute metabolic encephalopathy/AMS[ 06/11/2020] CT head without contrast; new changes noted left side Patient has acute left CVA with right hemiparesis Continue supportive care -- Acute left CVA (cerebrovascular accident) Current Visit: Yes Status: Acute Plan to address problem: Not a candidate for TPA CVA protocol: CT head, echocardiogram, carotid Doppler, physical therapy consulted, speech therapy consulted, Occupational Therapy consulted, antiplatelet therapy, neuro check, seizure precaution, aspiration precautions, fall precautions, teleneurology consulted in ED. Lipid panel, statin therapy. -- Right hemiparesis Current Visit: Yes Status: Acute Plan to address problem: Physical therapy , Occupational Therapy Rehabilitation follow recommendations DC planning per case management --Acute kidney injury; vasomotor nephropathy Current Visit: Yes Status: Acute Plan to address problem: gentle hydration. Monitor renal function Avoid nephrotoxins, nephrology consult if needed -- Hypertension; moderate control Current Visit: Yes Status: Acute Plan to address problem: Continue current antihypertensives As needed medications Permissive hypertension per stroke protocol --Pituitary mass Current Visit: Yes Status: Acute Plan to address problem: Neurology consulted, further care and evaluation as per neurology team. --Dysarthria Current Visit: No Status: Acute Plan to address problem: Speech therapy evaluation and management --DVT prophylaxis Current Visit: Yes Status: Acute Plan to address problem: SCD to bilateral lower extremities while in bed, prophylactic anticoagulation --Advance care planning Current Visit: Yes Status: Acute Plan to address problem: Disease education conducted, patient is full code, prognosis discussed, care plan discussed, patient daughter acknowledges understanding and agreement with care plan, +30 minutes. Discharge planning per case management PT and OT recommend subacute rehab vs home with [facility] DC planning per case management Subacute rehab versus home with home health when stable History Interval history: I have seen and examined the patient at the bedside Patient is minimally communicative No new complaints vital signs stable Hospitalist Physical - Constitutional Vitals: Temp Pulse Resp BP Pulse Ox 98.8 F 90 17 114/60 98 06/25/20 03:35 06/25/20 03:35 06/25/20 03:35 06/25/20 03:35 06/25/20 03:35 General appearance: Present: no acute distress, well-nourished, other (Noncommunicative) HEART Score - HEART Score Troponin: Troponin T < 0.010 ng/mL (0.00-0.029) 06/13/20 11:38 Results - Labs CBC & Chem 7: 06/13/20 11:38 06/24/20 07:45 Labs: Laboratory Last Values WBC 8.6 K/mm3 (4.5-11.0) 06/13/20 11:38 RBC 4.71 M/mm3 (3.65-5.03) 06/13/20 11:38 Hgb 12.5 gm/dl (10.1-14.3) 06/13/20 11:38 Hct 38.5 % (30.3-42.9) 06/13/20 11:38 MCV 82 fl (79-97) 06/13/20 11:38 MCH 27 pg (28-32) L 06/13/20 11:38 MCHC 32 % (30-34) 06/13/20 11:38 RDW 17.3 % (13.2-15.2) H 06/13/20 11:38 Plt Count 206 K/mm3 (140-440) 06/13/20 11:38 Lymph % (Auto) 19.2 % (13.4-35.0) 06/13/20 11:38 Dolores % (Auto) 5.3 % (0.0-7.3) 06/13/20 11:38 Eos % (Auto) 1.3 % (0.0-4.3) 06/13/20 11:38 Baso % (Auto) 0.8 % (0.0-1.8) 06/13/20 11:38 Lymph # (Auto) 1.6 K/mm3 (1.2-5.4) 06/13/20 11:38 Dolores # (Auto) 0.5 K/mm3 (0.0-0.8) 06/13/20 11:38 Eos # (Auto) 0.1 K/mm3 (0.0-0.4) 06/13/20 11:38 Baso # (Auto) 0.1 K/mm3 (0.0-0.1) 06/13/20 11:38 Seg Neutrophils % 73.4 % (40.0-70.0) H 06/13/20 11:38 Seg Neutrophils # 6.3 K/mm3 (1.8-7.7) 06/13/20 11:38 PT 13.1 Sec. (12.2-14.9) 06/13/20 11:38 INR 1.00 (0.87-1.13) 06/13/20 11:38 APTT 26.1 Sec. (24.2-36.6) 06/13/20 11:38 Sodium 148 mmol/L (137-145) H 06/24/20 07:45 Potassium 3.7 mmol/L (3.6-5.0) 06/24/20 07:45 Chloride 110.6 mmol/L (98-107) H 06/24/20 07:45 Carbon Dioxide 26 mmol/L (22-30) 06/24/20 07:45 Anion Gap 15 mmol/L 06/24/20 07:45 BUN 71 mg/dL (7-17) H 06/24/20 07:45 Creatinine 1.7 mg/dL (0.6-1.2) H 06/24/20 07:45 Estimated GFR 35 ml/min 06/24/20 07:45 BUN/Creatinine Ratio 42 % 06/24/20 07:45 Glucose 129 mg/dL (65-100) H 06/24/20 07:45 POC Glucose 119 mg/dL (70-105) H 06/25/20 11:08 Calcium 8.8 mg/dL (8.4-10.2) 06/24/20 07:45 Phosphorus 4.10 mg/dL (2.5-4.5) 06/24/20 07:45 Magnesium 3.00 mg/dL (1.7-2.3) H 06/24/20 07:45 Total Bilirubin 0.50 mg/dL (0.1-1.2) 06/17/20 08:34 AST 13 units/L (5-40) 06/17/20 08:34 ALT < 5 units/L (7-56) L 06/17/20 08:34 Alkaline Phosphatase 64 units/L (35-129) 06/17/20 08:34 Troponin T < 0.010 ng/mL (0.00-0.029) 06/13/20 11:38 Total Protein 6.5 g/dL (6.3-8.2) 06/17/20 08:34 Albumin 3.8 g/dL (3.9-5) L 06/17/20 08:34 Albumin/Globulin Ratio 1.4 % 06/17/20 08:34 Triglycerides 186 mg/dL (2-149) H 06/14/20 05:44 Cholesterol 208 mg/dL (50-199) H 06/14/20 05:44 LDL Cholesterol Direct 131 mg/dL (50-130) H 06/14/20 05:44 HDL Cholesterol 37 mg/dL (40-59) L 06/14/20 05:44 Cholesterol/HDL Ratio 5.62 % 06/14/20 05:44 Urine Color Yellow (Yellow) 06/13/20 12:02 Urine Turbidity Clear (Clear) 06/13/20 12:02 Urine pH 6.0 (5.0-7.0) 06/13/20 12:02 Ur Specific [employer] 1.018 (1.003-1.030) 06/13/20 12:02 Urine Protein 30 mg/dl mg/dL (Negative) 06/13/20 12:02 Urine Glucose (UA) Neg mg/dL (Negative) 06/13/20 12:02 Urine Ketones Neg mg/dL (Negative) 06/13/20 12:02 Urine Blood Neg (Negative) 06/13/20 12:02 Urine Nitrite Neg (Negative) 06/13/20 12:02 Urine Bilirubin Neg (Negative) 06/13/20 12:02 Urine Urobilinogen < 2.0 mg/dL (<2.0) 06/13/20 12:02 Ur Leukocyte Esterase Neg (Negative) 06/13/20 12:02 Urine WBC (Auto) 2.0 /HPF (0.0-6.0) 06/13/20 12:02 Urine RBC (Auto) 1.0 /HPF (0.0-6.0) 06/13/20 12:02 U Epithel Cells (Auto) 4.0 /HPF (0-13.0) 06/13/20 12:02 Urine Mucus Few /HPF 06/13/20 12:02 Coronavirus (PCR) Negative (Negative) 06/17/20 09:52 - Diagnostic Impressions Diagnostic Impressions: Echocardiogram 06/20/20 08:17 Transthoracic Echocardiogram Indication: CVA BP: 150/81 HR: 98 Conclusions *Global left ventricular systolic function is normal. *The estimated ejection fraction is 65-70%. *Mild to moderate concentric left ventricular hypertrophy is observed. *There is trace of mitral regurgitation. *There is mild tricuspid regurgitation. *There is evidence of borderline pulmonary hypertension. *The right ventricular systolic pressure is calculated at 27 mmHg. *A patent foramen ovale is not demonstrated by agitated saline contrast. Findings Left Ventricle: The left ventricular chamber size is normal. Mild to moderate concentric left ventricular hypertrophy is observed. Global left ventricular systolic function is normal. The estimated ejection fraction is 65-70%. Left Atrium: The left atrial chamber size is normal. Right Ventricle: The right ventricle is slightly dilated. The right ventricular global systolic function is normal. Right Atrium: The right atrial cavity size is normal. A patent foramen ovale is not demonstrated by agitated saline contrast. Aortic Valve: The aortic valve is trileaflet. The aortic valve leaflets are moderately thickened. There is no evidence of aortic regurgitation. There is no evidence of aortic stenosis. Mitral Valve: The mitral valve leaflets are mildly thickened. There is trace of mitral regurgitation. There is no evidence of mitral stenosis. Tricuspid Valve: There is mild tricuspid regurgitation. The right ventricular systolic pressure is calculated at 27 mmHg. There is evidence of borderline pulmonary hypertension. Pulmonic Valve: There is trace pulmonic regurgitation. Pericardium: There is no pericardial effusion. Aorta: There is no dilatation of the aortic root. Venous: The inferior vena cava appears normal in size. Contrast: Intravenous agitated saline contrast was used to assess intracardiac shunting. Measurements Chambers 2D Name Value Normal Range IVSd (2D) 1.2 cm (0.6 - 1.1) LVPWd (2D) 1.31 cm (0.6 - 1.1) LVIDd (2D) 3.16 cm (3.7 - 5.6) LVIDs (2D) 2.11 cm (2 - 3.8) LV FS (2D) 33.13 % - EF Teichholz (2D) 63.16 % - Ao root diameter (2D) 2.9 cm (2 - 3.7) Volumes/Mass Name Value Normal Range LA ESV SP 4CH (A/L) 16.36 ml - LA ESV SP 2CH (A/L) 14.27 ml - LA ESV BP (A/L) 16.03 ml - LA ESV SP 4CH (MOD) 15.02 ml - LA ESV SP 2CH (MOD) 14.22 ml - Diastolic/Systolic Function Name Value Normal Range MV E-wave Vmax 0.48 m/sec - MV deceleration time 191.18 msec - MV A-wave Vmax 0.93 m/sec - MV E:A ratio 0.52 ratio - Aortic Valve Name Value Normal Range AV Vmax 1.81 m/sec - AV VTI 24.46 cm - AV peak gradient 13.06 mmHg - AV mean gradient 7.06 mmHg - LVOT diameter 2.04 cm - LVOT Vmax 1.57 m/sec - LVOT VTI 23.41 cm - LVOT peak gradient 9.87 mmHg - LVOT mean gradient 6.02 mmHg - SV LVOT 76.81 ml - DYLAN (continuity Vmax) 2.85 cm2 - DYLAN (continuity VTI) 3.14 cm2 - AR PHT 268.11 msec - AR peak gradient 12.81 mmHg - Tricuspid Valve Name Value Normal Range TR Vmax 2.5 m/sec - TR peak gradient 24 mmHg - RAP 3 mmHg - RVSP 27 mmHg - Pulmonic Valve/Qp:Qs Name Value Normal Range PV Vmax 0.89 m/sec - PV peak gradient 3.14 mmHg - NH end-diastolic Vmax 1.54 m/sec - PV acceleration time 53.28 msec - Richards/IV: Voiding Method Incontinent IV Catheter Type [Right Peripheral IV Forearm] IV Catheter Type [Right INT / Saline Lock Antecubital] Active Medications - Current Medications Current Medications: Generic Name Dose Route Start Last Admin Trade Name Freq PRN Reason Stop Dose Admin Acetaminophen 650 mg 06/13/20 12:38 Acetaminophen 325 Mg Tab PO Q4H PRN Pain, Mild (1-3) Amlodipine Besylate 5 mg 06/16/20 11:00 06/25/20 10:32 Amlodipine 5 Mg Tab PO 5 mg QDAY COLETTE Administration Aspirin 325 mg 06/14/20 10:00 06/25/20 10:32 Aspirin 325 Mg Tab PO 325 mg QDAY COLETTE Administration Atorvastatin Calcium 40 mg 06/13/20 22:00 06/24/20 21:53 Atorvastatin 40 Mg Tab PO 40 mg QHS COLETTE Administration Bisacodyl 10 mg 06/13/20 12:38 Bisacodyl 10 Mg Rect Supp NH QDAY PRN Constipation Hydralazine HCl 10 mg 06/14/20 11:00 06/15/20 09:38 Hydralazine 20 Mg/1 Ml Inj IV 10 mg Q4HR PRN Administration Hypertension Hydrochlorothiazide 25 mg 06/14/20 11:00 06/25/20 10:32 Hydrochlorothiazide 25 Mg Tab PO 25 mg QDAY COLETTE Administration Dextrose 1,000 mls @ 100 mls/hr 06/23/20 20:00 06/25/20 10:32 D5w IV 100 mls/hr DIRECT COLETTE Administration Magnesium Hydroxide 30 ml 06/13/20 12:38 Magnesium Hydroxide (Mom) Oral Liqd Udc PO Q4H PRN Constipation Metoclopramide HCl 10 mg 06/13/20 12:38 Metoclopramide 10 Mg Tab PO Q6H PRN Nausea And Vomiting Ondansetron HCl 4 mg 06/13/20 12:38 Ondansetron 4 Mg/2 Ml Inj IV Q8H PRN Nausea And Vomiting Promethazine HCl 25 mg 06/13/20 12:38 Promethazine 25 Mg Rect Supp NH Q6H PRN Nausea And Vomiting Sodium Chloride 10 ml 06/13/20 12:38 06/22/20 22:34 Sodium Chloride 0.9% 10 Ml Flush Syringe IV 10 ml PRN PRN Administration LINE FLUSH Nutrition/Malnutrition Assess - Dietary Evaluation Nutrition/Malnutrition Findings: Nutrition Notes Start: 06/20/20 10:20 Freq: Status: Active Protocol: Document 06/24/20 12:24 (Rec: 06/24/20 12:33 [id number]) Nutrition Notes Initial or Follow up Reassessment Current Diagnosis Acute Kidney Injury, Hypertension,Stroke Other Pertinent Diagnosis aphasia, R hemiparesis, pituitary mass, vascular dementia Current Diet Cardiac with chopped meats Labs/Tests Na 148 BUN 71 Cr 1.7 Mg 3 Pertinent Medications D5w at 100 ml/hr Height 5 ft 4 in Weight 70.6 kg Daphne Body Weight (kg) 54.54 BMI 26.6 Weight Status Appropriate Subjective/Other Information FU for intakes. Per RN, pt ate 25% of breakfast. Three unopened ONS noted at bedside. Per chart, pt refusing solid foods. Will try pureed diet to increase intakes, RN made aware. Percent of energy/protein needs met: 32%/28% Burn Absent Trauma Absent Food Allergy No Current % PO Poor (25-49%) Minimum of two criteria No Energy Intake (non-severe) <75% Estimated Energy Requirement >7 days #1 Nutrition Diagnosis Inadequate oral intake Diagnosis Progress(for reassessment Continues documentation) Is patient on ventilator? No Is Patient Ambulatory and/or Out of Bed No REE-([facility] Jede-confined to bed) 1394.124 Calculation Used for Recommendations [facility] Additional Notes Pro: 70-85 g (1-1.2 g/kg) Fluid: 1 ml/kcal Nutrition Intervention Change Diet Order: Try pureed cardiac Add Supplement/Snack (indicate name/kcal Ensure Enlive daily /protein ) Provides kCal: 350 Provides Protein (gm) 20 Goal #1 Meet at least 70% energy and protein needs via PO/ONS intakes Anticipated Discharge Needs: Cardiac diet Follow-Up By: 06/25/20 Additional Comments FU for diet tolerance/intakes
[2020-06-25 12:18] VITALS: BP 147/74
== END 2020-06-25 18:05 | disposition home health service (06) | DRG 64 ==
LOC: ED 09:56 → 4A 12:38 → OBSVTOIN 06-15 13:15
PROVIDERS: ADMIT Internal Medicine; ATTEND Internal Medicine
DX: I63.9 Cerebral infarction, unspecified (principal); N17.0 Acute kidney failure with tubular necrosis; G93.41 Metabolic encephalopathy; Z20.822 Contact with and (suspected) exposure to COVID-19; R47.1 Dysarthria and anarthria; E87.6 Hypokalemia; I10 Essential (primary) hypertension; E78.00 Pure hypercholesterolemia, unspecified; Z79.82 Long term (current) use of aspirin; Z79.899 Other long term (current) drug therapy; Z82.49 Family history of ischemic heart disease and other diseases of the circulatory system; Z83.3 Family history of diabetes mellitus
CPT/HCPCS: 36415; 70450; 70544; 70547; 70553; 71045; 80048; 80053; 80061; 81001; 82962; 83735; 84100; 84484; 85025; 85610; 85730; 93005; 93306; 96374; 96375; G0378; A9270-GY; A9577; J0360; J7070; U0003

== ENCOUNTER 2020-07-10 14:09 | Emergency (ER) | payer MEDICARE ==
[2020-07-10 15:09] LABS: Basophils # (Auto) 0.1 K/mm3 (0.0-0.1); Basophils % (Auto) 0.7 % (0.0-1.8); Eosinophils # (Auto) 0.1 K/mm3 (0.0-0.4); Eosinophils % (Auto) 0.9 % (0.0-4.3); Hematocrit 40.3 % (30.3-42.9); Hemoglobin 12.7 gm/dl (10.1-14.3); Lymphocytes # (Auto) 2.1 K/mm3 (1.2-5.4); Lymphocytes % (Auto) 12.9 % (13.4-35.0); Mean Corpuscular HGB Conc 32 % (30-34); Mean Corpuscular Volume 80 fl (79-97); Monocytes # (Auto) 1.6 K/mm3 (0.0-0.8); Monocytes % (Auto) 9.6 % (0.0-7.3); Platelet Count 349 K/mm3 (140-440); Red Blood Count 5.05 M/mm3 (3.65-5.03)
--- NOTE | 2020-07-10 16:32 | Ultrasound Report ---
Pelvic Ultrasound HISTORY: postmenopausal bleeding. TECHNIQUE: Grayscale and color imaging performed. COMPARISON: None FINDINGS: Transabdominal imaging was performed without and endovaginal imaging. Uterus measures 6.8 x 1.6 x 4.4 cm with endometrial echocomplex measuring 4 mm. Neither ovary or the adnexal structures are well visualized. No gross pelvic free fluid. IMPRESSION: Unremarkable limited exam as above. Signer Name: Yordan Potts MD Signed: 07/10/2020 4:27 PM Workstation Name: [id number]
--- NOTE | 2020-07-10 18:34 | Emergency Department Report ---
ED Female HPI - General Chief complaint: Vaginal Bleeding Stated complaint: VAGINAL BLEED Time Seen by Provider: 07/10/20 14:23 Source: EMS Mode of arrival: Stretcher Limitations: Altered Mental Status, Physical Limitation - History of Present Illness Initial comments: Complaint: Vaginal bleeding HPI: This is a 80-year-old female with history of dyslipidemia, CVA, hypertension on aspirin therapy not on anticoagulation who presents with vaginal bleeding for several days. Patient denies any pain. History limited due to patient's nonverbal status. History obtained per daughter Shanthi Fermin in person. She came to the waiting room to provide further care. Patient was evaluated by telehealth physician. Daughter was unable to arrange transport ation to urgent care clinic due to patient's bedbound status. EMS called for further treatment evaluation. MD Complaint: vaginal bleeding -: Gradual Severity: moderate Consistency: constant Improves with: none Worsens with: none Associated Symptoms: denies other symptoms - Related Data Previous Rx's Medication Instructions Recorded Last Taken Type Aspirin 81 mg PO DAILY #30 06/20/20 Unknown Rx AtorvaSTATin [Lipitor] 40 mg PO QHS #30 tablet 06/20/20 Unknown Rx amLODIPine 5 mg PO QDAY #30 tablet 06/20/20 Unknown Rx bisacodyL [Dulcolax suppos] 10 mg HI QDAY PRN #20 supp.rect 06/20/20 Unknown Rx hydroCHLOROthiazide [HCTZ] 25 mg PO QDAY #30 tablet 06/20/20 Unknown Rx Ondansetron [Zofran Odt] 4 mg PO Q8HR PRN #20 tab.rapdis 06/25/20 Unknown Rx Allergies Allergy/AdvReac Type Severity Reaction Status Date / Time No Known Allergies Allergy Unverified 06/06/20 13:51 ED Review of Systems ROS: Stated complaint: VAGINAL BLEED Other details as noted in HPI Comment: Unobtainable due to pts medical conditions (Limited due to patient's nonverbal status) ED Past Medical Hx - Past Medical History Previous Medical History?: Yes Hx Hypertension: Yes Hx CVA: Yes Additional medical history: high cholesterol - Surgical History Past Surgical History?: No - Social History Smoking Status: Never Smoker Substance Use Type: None - Medications Home Medications: Home Medications Medication Instructions Recorded Confirmed Last Taken Type Aspirin 81 mg PO DAILY #30 06/20/20 Unknown Rx AtorvaSTATin [Lipitor] 40 mg PO QHS #30 tablet 06/20/20 Unknown Rx amLODIPine 5 mg PO QDAY #30 tablet 06/20/20 Unknown Rx bisacodyL [Dulcolax suppos] 10 mg HI QDAY PRN #20 supp.rect 06/20/20 Unknown Rx hydroCHLOROthiazide [HCTZ] 25 mg PO QDAY #30 tablet 06/20/20 Unknown Rx Ondansetron [Zofran Odt] 4 mg PO Q8HR PRN #20 tab.rapdis 06/25/20 Unknown Rx ED Physical Exam - General Limitations: Altered Mental Status, Physical Limitation General appearance: alert, in no apparent distress - Head Head exam: Present: atraumatic, normocephalic - Eye Eye exam: Present: normal appearance - ENT ENT exam: Present: mucous membranes moist - Neck Neck exam: Present: normal inspection, full ROM - Respiratory Respiratory exam: Present: normal lung sounds bilaterally. Absent: respiratory distress, wheezes, rales, rhonchi - Cardiovascular Cardiovascular Exam: Present: regular rate, normal rhythm, normal heart sounds. Absent: systolic murmur, diastolic murmur, rubs, gallop - GI/Abdominal GI/Abdominal exam: Present: soft, normal bowel sounds. Absent: distended, tenderness, guarding, rebound - External exam: Present: normal external exam, bleeding. Absent: lesions, lacerations, ecchymosis - Back Exam Back exam: Present: normal inspection - Neurological Exam Neurological exam: Present: alert - Psychiatric Psychiatric exam: Present: depressed, flat affect - Skin Skin exam: Present: warm, dry, intact, normal color. Absent: rash ED Course Vital Signs 07/10/20 07/10/20 07/10/20 14:20 14:21 14:24 Temperature 98.2 F 98.2 F Pulse Rate 107 H 107 H Respiratory 18 18 18 Rate Blood Pressure 144/90 Blood Pressure 144/90 [Left] O2 Sat by Pulse 98 98 98 Oximetry 07/10/20 18:09 Temperature 97.4 F L Pulse Rate 96 H Respiratory 18 Rate Blood Pressure Blood Pressure 150/83 [Left] O2 Sat by Pulse 98 Oximetry ED Medical Decision Making - Lab Data Result diagrams: 07/10/20 14:51 - Radiology Data Radiology results: report reviewed Pelvic Ultrasound HISTORY: postmenopausal bleeding. TECHNIQUE: Grayscale and color imaging performed. COMPARISON: None FINDINGS: Transabdominal imaging was performed without and endovaginal imaging. Uterus measures 6.8 x 1.6 x 4.4 cm with endometrial echocomplex measuring 4 mm. Neither ovary or the adnexal structures are well visualized. No gross pelvic free fluid. IMPRESSION: Unremarkable limited exam as above. - Medical Decision Making Postmenopausal vaginal bleeding. Ultrasound did not reveal large detectable tumor in the pelvic region. H&H within normal limits. I had extensive conversation with daughter. She understands the concern for malignancy. I recommended outpatient gynecological consultation for endometrial biopsy. Patient was given referral to city engineer on-call. Critical care attestation.: If time is entered above; I have spent that time in minutes in the direct care of this critically ill patient, excluding procedure time. ED Disposition Clinical Impression: Postmenopausal bleeding Disposition: DC-01 TO HOME OR SELFCARE Is pt being admited?: No Does the pt Need Aspirin: No Condition: Stable Referrals: JERROD TRENT JR, MD [Staff Physician] - 3-5 Days
[2020-07-10 19:24] VITALS: BP 128/86
== END 2020-07-10 21:02 | disposition home or self-care (01) ==
LOC: ED 14:09
DX: N95.0 Postmenopausal bleeding (principal); I10 Essential (primary) hypertension; Z86.73 Personal history of transient ischemic attack (TIA), and cerebral infarction without residual deficits; Z79.899 Other long term (current) drug therapy
CPT/HCPCS: 36415; 76856; 85025

== ENCOUNTER 2020-07-19 02:24 | Emergency (ER) | payer MEDICARE ==
[2020-07-19] MEDS ORDERED: fentaNYL 100 MCG/2 ML INJ IV PRN (02:54)
[2020-07-19] MEDS ORDERED: MINERAL OIL/PETROLATUM, WHITE OPHTH OINT 3.5 GM OU PRN (02:54)
[2020-07-19] MEDS ORDERED: LIP THERAPY VASELINE TP PRN (02:54)
[2020-07-19] MEDS ORDERED: SODIUM CHLORIDE 0.9% 1000 ML 1,000 ML IV ONE ×2 (02:57→03:36)
--- NOTE | 2020-07-19 02:57 | Emergency Department Report ---
ED Shortness of Breath HPI - General Chief Complaint: Dyspnea/Respdistress Stated Complaint: ESSIE Time Seen by Provider: 07/19/20 02:24 Source: EMS Mode of arrival: Stretcher Limitations: Altered Mental Status, Physical Limitation - History of Present Illness Initial Comments: Patient is an 80-year-old female that presents emergency room for difficulty b reathing. Patient brought in by EMS. Patient is altered. History is per EMS. Report received from EMS. EMS states that the family called EMS to bring the patient to hospital because she woke up with snoring respiration. Patient had a stroke 1 month ago and is nonverbal and does not eat. MD Complaint: shortness of breath -: Sudden - Related Data Previous Rx's Medication Instructions Recorded Last Taken Type Aspirin 81 mg PO DAILY #30 06/20/20 Unknown Rx AtorvaSTATin [Lipitor] 40 mg PO QHS #30 tablet 06/20/20 Unknown Rx amLODIPine 5 mg PO QDAY #30 tablet 06/20/20 Unknown Rx bisacodyL [Dulcolax suppos] 10 mg MT QDAY PRN #20 supp.rect 06/20/20 Unknown Rx hydroCHLOROthiazide [HCTZ] 25 mg PO QDAY #30 tablet 06/20/20 Unknown Rx Ondansetron [Zofran Odt] 4 mg PO Q8HR PRN #20 tab.rapdis 06/25/20 Unknown Rx Allergies Allergy/AdvReac Type Severity Reaction Status Date / Time No Known Allergies Allergy Unverified 06/06/20 13:51 ED Review of Systems ROS: Stated complaint: ESSIE Other details as noted in HPI Comment: Unobtainable due to pts medical conditions ED Past Medical Hx - Past Medical History Previous Medical History?: Yes Hx Hypertension: Yes Hx CVA: Yes Additional medical history: high cholesterol - Surgical History Past Surgical History?: No - Family History Family history: no significant - Social History Smoking Status: Never Smoker Substance Use Type: None - Medications Home Medications: Home Medications Medication Instructions Recorded Confirmed Last Taken Type Aspirin 81 mg PO DAILY #30 06/20/20 Unknown Rx AtorvaSTATin [Lipitor] 40 mg PO QHS #30 tablet 06/20/20 Unknown Rx amLODIPine 5 mg PO QDAY #30 tablet 06/20/20 Unknown Rx bisacodyL [Dulcolax suppos] 10 mg MT QDAY PRN #20 supp.rect 06/20/20 Unknown Rx hydroCHLOROthiazide [HCTZ] 25 mg PO QDAY #30 tablet 06/20/20 Unknown Rx Ondansetron [Zofran Odt] 4 mg PO Q8HR PRN #20 tab.rapdis 06/25/20 Unknown Rx ED Physical Exam - General Limitations: Altered Mental Status, Physical Limitation General appearance: obtunded - Head Head exam: Present: atraumatic, normocephalic - Eye Eye exam: Present: normal appearance, PERRL Pupils: Present: normal accommodation - ENT ENT exam: Present: mucous membranes dry - Neck Neck exam: Present: normal inspection - Respiratory Respiratory exam: Present: respiratory distress, accessory muscle use, decreased breath sounds - Cardiovascular Cardiovascular Exam: Present: regular rate, normal rhythm. Absent: systolic murmur, diastolic murmur, rubs, gallop - GI/Abdominal GI/Abdominal exam: Present: soft, normal bowel sounds - Extremities Exam Extremities exam: Present: normal inspection - Back Exam Back exam: Present: normal inspection - Neurological Exam Neurological exam: Present: altered - Skin Skin exam: Present: warm, dry, intact, normal color. Absent: rash ED Course Vital Signs 07/19/20 07/19/20 07/19/20 02:53 03:46 03:57 Pulse Rate 106 H 90 Respiratory 28 H 22 28 H Rate Blood Pressure 150/94 07/19/20 04:00 Pulse Rate 97 H Respiratory 22 Rate Blood Pressure 78/53 - Reevaluation(s) Reevaluation #1: Initial evaluation done. EMS and the nurses unable to obtain peripheral access. A right tibial IO was placed. See procedure note. Patient was also intubated due to altered mental status and hypoxia. See intubation note. 07/19/20 02:57 Reevaluation #2: Patient went into a cardiac arrest. See code note. 07/19/20 03:04 Reevaluation #3: Patient had spontaneous return of circulation after multiple rounds of medications and CPR patient was also shocked 3 times. See nurses code note. 07/19/20 03:17 Reevaluation #4: Patient's blood pressure was good however the patient is now hypotensive. Patient was placed on Levophed. Patient is currently on amiodarone drip and fluids. 07/19/20 03:31 Reevaluation #5: I discussed the case with the patient's daughter. Patient's daughter states that the patient was actually a DNR but she never gave EMS that information. 07/19/20 03:50 After discussing the case with the patient's daughter, the patient's daughter has decided to withdraw care. Patient has signed a DNR and withdrawal forms. Patient voiced understanding of withdrawal of care. 07/19/20 04:24 All the family members have arrived and the family is ready to withdraw care. The pressors and fluids have been stopped. Patient was extubated and the vent was discontinued. NG tube removed. 07/19/20 05:19 Patient is tachypneic. Patient will be given 1 of Dilaudid for comfort. 07/19/20 05:24 Patient has . Family support given. All question concerns addressed with family. 07/19/20 05:37 - Intubation Time Out Performed: Yes Sedative: Etomidate Paralytic: Rocuronium Laryngoscope: fiberoptic video scope Assist Device Used: fiberoptic device ET Tube Size: 7.5 Tube Secured Depth (cm): 24 Tube Secured Location: teeth Tube Placement Confirmation: visualized tube passing t, equal breath sounds bilat, no breath sounds over epi, confirmation by capnometr Patient Tolerated Procedure: well, no complications Intubation Complications: none - IO Right Tibia Consent Obtained: emergent situation Time Out Performed: Yes IO Instrument Used to Penetrate the Cortex: battery powered IO drill Patient Tolerated Procedure: well, no complications Complications: none ED Medical Decision Making - Lab Data Result diagrams: 07/19/20 03:31 07/19/20 03:31 - Radiology Data Radiology results: report reviewed, image reviewed interpreted by me: Chest x-ray: No pneumonia, no pneumothorax, ET tube in satisfactory position, no osseous findings, - Medical Decision Making Patient is an 80-year-old female presents emergency room for difficulty breathing and shortness of breath. After initial evaluation the patient was found to have hypoxia and altered mental status and difficulty breathing. Patient was immediately intubated. Prior to intubation can be done, the patient had IV access. Nurse to obtain IV access in a right tibial IO was placed. After intubation, the patient went to cardiac arrest. Patient had spontaneous return of circulation. See code note. Patient required multiple rounds of CPR medications and even defibrillation. I discussed the case with the patient's daughter and the patient's daughter states that the patient is a DNR but that the daughter forgot to tell EMS and bring it to the hospital. The daughter states she would like to withdraw care but she does not want her family member to suffer. The daughter signed the withdrawal of care form. Daughter voiced understanding of what withdrawal of care is. After the other family members had time to arrive to the hospital, patient's care was withdrawn. - Differential Diagnosis essie,sob, ams, respiratory failure, cardiac arrest,pna Critical Care Time: Yes Critical care time in (mins) excluding proc time.: 80 Critical care attestation.: If time is entered above; I have spent that time in minutes in the direct care of this critically ill patient, excluding procedure time. Critical Care Time: 80 minutes ED Disposition Clinical Impression: Cardiac arrest, Lactic acid acidosis, Elevated troponin Respiratory failure Qualifiers: Chronicity: acute Respiratory failure complication: hypoxia Qualified Code(s): J96.01 - Acute respiratory failure with hypoxia Altered mental status Qualifiers: Altered mental status type: unspecified Qualified Code(s): R41.82 - Altered mental status, unspecified Renal failure Qualifiers: Renal failure chronicity: acute Acute renal failure type: unspecified Qualified Code(s): N17.9 - Acute kidney failure, unspecified Disposition: DC-20 Is pt being admited?: No Does the pt Need Aspirin: No Condition: Undetermined Time of Disposition: 05:57
[2020-07-19] MEDS ORDERED: fentaNYL DRIP Premix 2,000 MCG/100 ML BAG IV SCH (03:00)
[2020-07-19] MEDS ORDERED: NORepinephrine/NS 4 MG-250 ML 4 MG/250 ML BAG IV ONE (03:35)
--- NOTE | 2020-07-19 03:41 | XRay Report ---
CHEST 1 VIEW 07/19/2020 3:26 AM INDICATION / CLINICAL INFORMATION: ETT placement. COMPARISON: 06/13/2020 FINDINGS: SUPPORT DEVICES: Endotracheal nasogastric tubes project in expected position HEART / MEDIASTINUM: No significant abnormality. LUNGS / PLEURA: No significant pulmonary or pleural abnormality. No pneumothorax. ADDITIONAL FINDINGS: No significant additional findings. IMPRESSION: 1. No acute findings. Signer Name: Jorge Rico MD Signed: 07/19/2020 3:37 AM Workstation Name: [id number]
[2020-07-19 03:55] LABS: Mean Corpuscular HGB Conc 31 % (30-34); Mean Corpuscular Volume 85 fl (79-97); Platelet Count 126 K/mm3 (140-440); Red Blood Count 4.98 M/mm3 (3.65-5.03); Red Cell Distribution Width 18.6 % (13.2-15.2)
[2020-07-19] MEDS ORDERED: NORepinephrine/NS 4 MG-250 ML 4 MG/250 ML BAG IV SCH (04:00)
[2020-07-19] MEDS ORDERED: AMIODARONE 900 MG in DEXTROSE 5% IN WATER 482 ML IV SCH (04:00)
[2020-07-19 04:03] LABS: Hematocrit 42.3 % (30.3-42.9); Hemoglobin 12.9 gm/dl (10.1-14.3)
[2020-07-19 04:04] LABS: INR 1.91 (0.87-1.13)
[2020-07-19 04:05] VITALS: BP 78/53
[2020-07-19 04:05] LABS: Partial Thromboplastin Time 45.6 Sec. (24.2-36.6)
[2020-07-19] MEDS ORDERED: VANCOMYCIN/NS 1 GM/250 ML 1 GM/250 ML BAG IV ONE (04:07)
[2020-07-19] MEDS ORDERED: PIPERACIL/TAZOBACTA 4.5/NS 100 4.5 GM/100 ML VIAL IV ONE (04:07)
[2020-07-19 04:20] LABS: Alanine Aminotransferase 21 units/L (7-56); Albumin 2.8 g/dL (3.9-5); Hemolysis Index 62
[2020-07-19 04:24] LABS: Calcium > 13.0 mg/dL (8.4-10.2)
[2020-07-19 04:27] LABS: BUN/Creatinine Ratio 32; Blood Urea Nitrogen 199 mg/dL (7-17)
[2020-07-19] MEDS ORDERED: HYDROmorphone 1 MG/1 ML INJ ONE (05:23)
[2020-07-19] MEDS ORDERED: HYDROmorphone 1 MG/1 ML INJ IV ONE (05:24)
[2020-07-19 06:12] LABS: Anisocytosis Few; Platelet Estimate Consistent w Auto; Total Cells Counted 100
== END 2020-07-19 05:00 ==
LOC: ED 02:24
DX: I46.9 Cardiac arrest, cause unspecified (principal); J96.90 Respiratory failure, unspecified, unspecified whether with hypoxia or hypercapnia; N19 Unspecified kidney failure; R41.82 Altered mental status, unspecified; E87.2 Acidosis; R77.8 Other specified abnormalities of plasma proteins; I10 Essential (primary) hypertension; Z86.73 Personal history of transient ischemic attack (TIA), and cerebral infarction without residual deficits; Z79.82 Long term (current) use of aspirin; Z79.899 Other long term (current) drug therapy
CPT/HCPCS: 31500; 36415; 36680; 71045; 80053; 82140; 82550; 82553; 84484; 85007; 85025; 85610; 85730; 92950; 93005; 96374; 99291; 99292; J0282; J1170; J3010; J7060; 94002; 96361; 96365; 96366; 96368; 96375